=== PATIENT | female | born 1965 | race Caucasian/White ===

== ENCOUNTER 2018-10-13 08:38 | Emergency (ER) | payer OTHER, MEDICAID, SELFPAY ==
[2018-10-13 09:05] VITALS: BP 148/91; PULSE 84; RESP 20; TEMP 36.8; O2SAT 99; BMI 29.2
[2018-10-13 10:34] LABS: Bacteria Urine None Seen; RBC Urine None Seen (0-5/HPF)
--- NOTE | 2018-10-13 10:36 | DI.CT.S_ITS ---
PROCEDURE: CT LUMBAR SPINE WO CON INDICATIONS: severe pain right side fall 3 months ago TECHNIQUE: Noncontrast 3 mm thick sections acquired from the T12 level to the sacrum. Sagittal and coronal reformats were constructed. For radiation dose reduction, the following was used: automated exposure control. COMPARISON: [facility], CT, ABDOMEN/PELVIS WITH CONTRAST, 12/26/2016, 16:12. FINDINGS: Image quality: Diagnostic. Bones: There are 5 lumbar-type vertebral bodies. The vertebral body heights are well-maintained there is no evidence of an acute compression deformity is evident. No displaced fractures or dislocations are present. No suspicious osseous lesions are evident. There is straightening of the normal lumbar lordosis. No evidence of spondylolisthesis is evident. No definite pars defects are identified. The bone mineralization is within normal limits. Moderate to severe multilevel degenerative changes of the lumbar spine are present demonstrate multilevel disc height loss, disc osteophyte complexes, endplate sclerosis, and facet arthrosis. These findings are similar to the examination from 12/26/16. On the coronal images there is mild rightward curvature of the lower lumbar spine. Soft tissues: No retroperitoneal masses or hematomas. Visualized aorta is normal in caliber. Uterus is slightly prominent in size. However, the uterus is not adequately evaluated on this exam. There may be areas of mild distal colonic diverticulosis. No free fluid or loculated fluid collection seen within the imaged portions of the pelvis. IMPRESSION: 1. No acute fracture of the lumbar spine. 2. Moderate to severe multilevel degenerative changes of the lumbar spine are more prominent involving the lower lumbar levels. 3. Number straightening without spondylolisthesis. There is rightward curvature of the lower lumbar spine. Dictated by: Joe Royal M.D. on 10/13/2018 at 10:11 Approved by: Joe Royal M.D. on 10/13/2018 at 10:16
--- NOTE | 2018-10-13 10:41 | ED_ITS ---
HPI - Back Pain/Injury General Chief Complaint: Back Pain/Injury Stated Complaint: Lower back and hip pain Time Seen by Provider: 10/13/18 10:07 Source: patient Mode of arrival: wheelchair Limitations: no limitations History of Present Illness HPI Narrative: Patient is a 53-year-old female who presents with low back pain. She has sharp shooting pain down her right leg. She always has pain in morning however this morning he was significantly worse more than usual. She has no fever no urinary incontinence. She says that it it all started about 3 months ago when she slipped fell and twisted. She has been to physical therapy which she said made her pain even worse. She actually has not had any imaging done. She usually takes open in the morning she took 800 this morning and is still having severe pain. MD Complaint: back pain Onset (ago): month(s) (3) Duration: progressively worsening Location: lumbar spine Severity: severe Quality: sharp and stabbing Radiation: right leg Relieving factors: none Related Data Home Medications Medication Instructions Recorded Confirmed calcium carbonate [Tums E-X] 300 mg PO PRN PRN #0 12/26/16 carvedilol [Coreg] 6.25 mg PO QDAY #0 12/26/16 hydroxyzine HCl 25 mg PO QDAY #0 12/26/16 Previous Rx's Medication Instructions Recorded chlordiazepoxide HCl 25 mg PO Q6H #14 cap 12/28/16 hydrocodone-acetaminophen [Hastings] 1 tab PO Q6H PRN #10 tab 10/13/18 lidocaine 1 patch TOP DAILY PRN #30 each 10/13/18 prednisone 40 mg PO DAILY #10 tab 10/13/18 Allergies Allergy/AdvReac Type Severity Reaction Status Date / Time No Known Allergies Allergy Uncoded 09/06/17 12:36 Review of Systems Review of Systems ROS Unobtainable: All systems reviewed & are unremarkable except as noted in HPI and below Constitutional Denies chills, Denies fever(s), Denies lethargy and Denies weakness Eyes Denies change in vision, Denies eye discharge, Denies irritation and Denies loss of vision ENT Ears, Nose, Mouth, and Throat: Denies change in voice, Denies neck pain and Denies sore throat Cardiovascular Denies chest pain, Denies irregular heart rhythm, Denies lightheadedness, Denies palpitations, Denies dyspnea, Denies dyspnea on exertion and Denies orthopnea Respiratory Denies cough, Denies dyspnea, Denies dyspnea on exertion and Denies wheezing Gastrointestinal Gastrointestinal: Denies abdominal pain, Denies change in bowel habits, Denies diarrhea, Denies nausea and Denies vomiting Musculoskeletal Reports abnormal gait, Reports back pain, Denies neck pain and Reports tingling Integumentary/Breasts Denies pruritus, Denies erythema, Denies rash and Denies wounds Neurologic Reports abnormal gait, Denies loss of vision, Reports tingling and Denies weakness Endocrine Denies palpitations Allergic/Immunologic Denies wheezing [facility] Medical History (Updated 10/13/18 @ 11:30 by Krys Rocha DO) Paroxysmal atrial fibrillation (Acute) Social History (Updated 10/13/18 @ 10:41 by Krys Rocha DO) Smoking Status: Never smoker alcohol intake: never substance use type: does not use Social History (Updated 10/13/18 @ 10:41 by Krys Rocha DO) Smoking Status: Never smoker alcohol intake: never substance use type: does not use Exam Initial Vital Signs Initial Vital Signs: Vital Signs Temperature 98.2 F 10/13/18 09:05 Pulse Rate 84 10/13/18 09:05 Respiratory Rate 20 10/13/18 09:05 Blood Pressure 148/91 H 10/13/18 09:05 Pulse Oximetry 99 10/13/18 09:05 GENERAL: Patient appears in pain and in [no acute] distress. HEENT: Head atraumatic,EOMI, pupils reactive, CARDIOVASCULAR: Regular rate and rhythm without murmurs, rubs or gallops. RESPIRATORY: Breath sounds equal bilaterally, no wheezes rales or rhonchi. ABDOMEN: Soft, nontender. Normoactive bowel sounds all 4 quadrants. No guarding or rebound. BACK: No midline tenderness she has right sided or lumbar pain. Sensation intact in lower extremities no saddle anesthesia : No CVA tenderness EXTREMITIES: Normal range of motion, no clubbing or edema. Neurovascularly intact NEUROLOGICAL: Alert and oriented x4.Normal gait and speech. Cranial nerves II through XII grossly intact. SKIN: Warm, dry, no laceration, no petechiae, no rashes or lesions. Course Orders Ordered: ED Orders 10/13/18 10:06 Urine Microscopic Stat 10/13/18 10:36 CT lumbar spine wo con Stat Discontinued Medications Hydromorphone HCl (Dilaudid) 1 mg SUBCUT Q4H PRN PRN Reason: Pain, Severe (7-10) Last Admin: 10/13/18 11:02 Dose: 1 mg Vital Signs - 8 hr 10/13/18 11:06 Pulse Rate 71 Respiratory Rate 18 Blood Pressure [Left Arm] 140/98 H Pulse Oximetry 99 MDM - Back Pain/Injury Lab Data Attestation: I reviewed the patient's lab results. Lab Results 10/13/18 Range/Units 10:06 Urine RBC None seen (0-5/HPF) Urine WBC 0-1/hpf (0-5/HPF) Ur Squamous Epith Cells 1-5 /hpf (0-5/HPF) Urine Bacteria None seen (None) Urine Mucus 1+ H (Negative) Ur Culture Indicated? Cult not indicated Urine Dip Bedside Urine Glucose Negative Bedside Urine Bilirubin + 1 Bedside Urine Ketone +/- 5 Urine Specific [place] 1.030 Bedside Urine Occult Blood - Negative Bedside Urine pH 5.5 Bedside Urine Protein +/- 15 Bedside Urine Urobilinogen - Negative Bedside Urine Nitrite - Negative Bedside Urine Leukocytes - Negative Esterase Imaging Data CT Lumbar: Radiologist's impression: PROCEDURE: CT LUMBAR SPINE WO CON INDICATIONS: severe pain right side fall 3 months ago TECHNIQUE: Noncontrast 3 mm thick sections acquired from the T12 level to the sacrum. Sagittal and coronal reformats were constructed. For radiation dose reduction, the following was used: automated exposure control. COMPARISON: [facility], CT, ABDOMEN/PELVIS WITH CONTRAST, 12/26/2016, 16:12 . FINDINGS: Image quality: Diagnostic. Bones: There are 5 lumbar-type vertebral bodies. The vertebral body heights are well-maintained there is no evidence of an acute compression deformity is evident. No displaced fractures or dislocations are present. No suspicious osseous lesions are evident. There is straightening of the normal lumbar lordosis. No evidence of spondylolisthesis is evident. No definite pars defects are identified. The bone mineralization is within normal limits. Moderate to severe multilevel degenerative changes of the lumbar spine are present demonstrate multilevel disc height loss, disc osteophyte complexes, endplate sclerosis, and facet arthrosis. These findings are similar to the examination from 12/26/16. On the coronal images there is mild rightward curvature of the lower lumbar spine. Soft tissues: No retroperitoneal masses or hematomas. Visualized aorta is normal in caliber. Uterus is slightly prominent in size. However, the uterus is not adequately evaluated on this exam. There may be areas of mild distal colonic diverticulosis. No free fluid or loculated fluid collection seen within the imaged portions of the pelvis. IMPRESSION: 1. No acute fracture of the lumbar spine. 2. Moderate to severe multilevel degenerative changes of the lumbar spine are more prominent involving the lower lumbar levels. 3. Number straightening without spondylolisthesis. There is rightward curvature of the lower lumbar spine. Dictated by: Joe Royal M.D. on 10/13/2018 at 10:11 MDM Narrative Medical decision making narrative: Pain is overall better. We discussed how she might need an outpatient MRI and physical therapy. She is agreeable to this. She is given a small amount of pain medication and prednisone along with lidocaine patches. We discussed a [id number] TENS unit as well which may also help. Patient is ambulatory. Discharge Plan Departure Patient Disposition: Home Clinical Impression: Back pain Qualifiers: Back pain location: low back pain Chronicity: acute Back pain laterality: right Sciatica presence: with sciatica Sciatica laterality: sciatica of right side Qualified Code(s): M54.41 - Lumbago with sciatica, right side Discharge Date/Time: 10/13/18 11:51 Interventions: ED Discharge Assessment Last Done: 10/13/18 11:49 Instructions: DI for Back Pain With Sciatica Activity Restrictions/Additional Instructions: *You have been diagnosed with back pain with sciatic *What to do: I do recommend physical therapy. He may require an outpatient MRI. CT today showed some arthritis. *Continue to take medications as directed Lidocaine patch placed indirect spots of pain only leave on for 12 hours and remove. Prednisone 40 mg once a day for 5 days Hastings 1 tablet every 6 hours only if needed for pain *Follow up with your primary care provider in 2-3 days, Dr. Oglesby may be able to help you with your chronic pain *Return to ER if you should have leg weakness loss of urine fever or any new, worsening or concerning symptoms Prescriptions: New hydrocodone-acetaminophen [Hastings] 5-325 mg tablet 1 tab PO Q6H PRN (Reason: pain) Qty: 10 RF: 0 prednisone 20 mg tablet 40 mg PO DAILY Qty: 10 RF: 0 lidocaine 5 % adhesive patch,medicated 1 patch TOP DAILY PRN (Reason: pain (scale score 4-6)) Qty: 30 RF: 0 No Action carvedilol [Coreg] 6.25 MG tablet 6.25 mg PO QDAY Qty: 0 RF: 0 hydroxyzine HCl 25 MG tablet 25 mg PO QDAY Qty: 0 RF: 0 calcium carbonate [Tums E-X] 300 MG tablet,chewable 300 mg PO PRN PRNQty: 0 RF: 0 chlordiazepoxide HCl 25 MG capsule 25 mg PO Q6H Qty: 14 RF: 0 Referrals: Kendall Oglesby DO [Physician] - Cindy Meza MD [Primary Care Provider] - Stand Alone Forms: Work Release Note
[2018-10-13 10:47] LABS: Culture Indicated Urine Cult Not Indicated; Mucus Urine 1+ (Negative); Squamous Epithelial Cell Urine 1-5 /HPF (0-5/HPF); WBC Urine 0-1/HPF (0-5/HPF)
[2018-10-13] MEDS: HYDROMORPHONE 2 MG INJ 1 MG SUBCUT (11:02)
[2018-10-13 11:06] VITALS: BP 140/98; PULSE 71; RESP 18; O2SAT 99
== END 2018-10-13 11:51 | disposition home or self-care (01) ==
PROVIDERS: Emergency Provider Emergency Medicine; PCP Family Medicine
DX: M54.41 Lumbago with sciatica, right side (principal)
CPT/HCPCS: 72131; 81003; 81015; 96372; 99282; 99284; J1170

== ENCOUNTER 2018-12-14 13:26 | Observation (INO) | payer OTHER, MEDICAID, SELFPAY ==
[2018-12-14 13:32] VITALS: BP 189/106; PULSE 108; RESP 18; TEMP 35.7; O2SAT 97; BMI 25.7
[2018-12-14] MEDS: ONDANSETRON 4 MG ODT PO (13:44)
[2018-12-14 14:02] LABS: Add Manual Diff / Slide Review NO; Basophils Absolute Auto 100 /uL (0-100); Basophils Percent Auto 0.5 % (0-2); Eosinophils Absolute Auto 0 /uL (0-450); Eosinophils Percent Auto 0.3 % (2-4); Hematocrit 41.9 % (36-46); Hemoglobin 14.4 g/dL (12.0-16.0); Lymphocytes Absolute Auto 1500 /uL (1100-4500); Lymphocytes Percent Auto 10.4 % (25-40); Mean Corpuscular HGB Conc 34.3 % (30-36); Mean Corpuscular Hemoglobin 34.5 PG (26-34); Mean Corpuscular Volume 100.5 fL (80-100); Monocytes Absolute Auto 600 /uL (0-900); Neutrophils Absolute Auto 12600 /uL (1500-7000); Neutrophils Percent Auto 84.8 % (50-75); Platelet Count 260 X10^3/uL (150-400); Red Blood Cell Count 4.17 X10^6/uL (4.0-5.2); Red Cell Distribution Width 13.5 % (11.6-14.8); White Blood Cell Count 14.8 X10^3/uL (4.5-11.0)
[2018-12-14 14:11] LABS: INR 0.9 (0.9-1.3); Prothrombin Time 10.5 SECONDS (10.1-12.7)
[2018-12-14 14:13] LABS: PTT Partial Thromboplastin Tim 26 SECONDS (26.4-36.2)
[2018-12-14 14:15] LABS: Alanine Aminotransferase 39 IU/L (9-52); Albumin 5.1 g/dL (3.5-5.0); Albumin Globulin Ratio 1.5 (1.0-2.8); Alkaline Phosphatase 80 U/L (38-126); Aspartate Aminotransferase 47 IU/L (14-36); BUN Creatinine Ratio 18.3 (6-22); Bilirubin Total 1.2 mg/dL (0.2-1.3); Blood Urea Nitrogen 11 mg/dL (7-17); Calcium 11.4 mg/dL (8.4-10.2); Carbon Dioxide 29 mmol/L (22-32); Chloride 95 mmol/L (98-107); Estimated Glomerular Filt Rate > 60.0 mL/min (>60); Globulin 3.4 g/dL (1.7-4.1); Glucose 155 mg/dL (70-100); HEMOLYSIS < 15 (0-50); Lipase 44 U/L (23-300); Sodium 138 mmol/L (137-145); Total Protein 8.5 g/dL (6.3-8.2)
[2018-12-14] MEDS: diphenhydrAMINE 50 MG/ML VIAL 25 MG IV (14:30)
[2018-12-14] MEDS: METOCLOPRAMIDE 10 MG/2 ML INJ IV (14:30)
[2018-12-14] MEDS: SODIUM CHLORIDE 0.9% 1,000 ML 1000 ML IV ×2 (14:30→15:44)
[2018-12-14 14:33] LABS: Amylase 65 U/L (30-110)
[2018-12-14 14:51] LABS: Creatine Kinase 80 U/L (30-135)
[2018-12-14 15:05] LABS: Troponin I < 0.012 ng/mL (0.01-0.034)
--- NOTE | 2018-12-14 15:11 | DI.CT.S_ITS ---
PROCEDURE: CT ABDOMEN PELVIS W CON INDICATIONS: abd pain, vomiting TECHNIQUE: After the administration of oral and intravenous contrast, 5 mm thick sections acquired from the diaphragms to the symphysis. 5 mm thick coronal and sagittal reformats were performed. For radiation dose reduction, the following was used: automated exposure control, adjustment of mA and/or kV according to patient size. COMPARISON: [facility], CT, ABDOMEN/PELVIS WITH CONTRAST, 12/26/2016, 16:12. [facility], CT, CT ABD PELVIS W CON, 03/18/2015, 6:59. [facility], CT, KUB - CT (PNL), 11/08/2012, 11:38. FINDINGS: Image quality: Diagnostic. ABDOMEN: Lung bases: Lung bases are clear. Heart size is normal. Solid organs: The liver is diffusely hypodense when compared to the spleen. No definite liver lesions are evident. The patient has had a prior cholecystectomy. There is mild prominence of the common bile duct, which is within normal limits given the prior cholecystectomy. The spleen is unremarkable. The adrenals are within normal limits. The kidneys also are within normal limits. There is no hydronephrosis or definite renal calculi. The pancreas is within normal limits. Peritoneum and bowel: There is prominent thickening of the distal esophageal wall. An associated moderate-sized hiatal hernia is present. Otherwise, the stomach is grossly unremarkable. The small bowel loops are nondilated. However, there is wall thickening identified involving the distal ileum within the right lower quadrant (image 50, series 2). There is diffuse thickening of the wall of the colon, which is relatively decompressed. The appendix is well-visualized and normal in size and appearance. No free fluid, loculated fluid collection or free air is evident. Nodes and vessels: No retroperitoneal or mesenteric adenopathy. Aorta and inferior vena cava are normal in caliber. Bones: No acute fracture or suspicious osseous lesion is present. There are [id number] degenerative changes of the lower lumbar spine. PELVIS: Genitourinary: Bladder wall thickness is normal. Miscellaneous: No inguinal hernias or adenopathy. No free fluid or loculated fluid collection is appreciated. Bones: No suspicious bony lesions. No acute pelvic fractures are identified. Mild to moderate degenerative changes of the pelvic joints are present. IMPRESSION: 1. Diffuse thickening of the wall of the colon is suggestive of colitis, which may be infectious or inflammatory in nature and clinical correlation is recommended. (A similar appearance to a lesser degree is present involving the distal ileum.) 2. No bowel obstruction. 3. Thickening of the distal esophageal wall may represent chronic esophagitis. There is a small to moderate-sized hiatal hernia. 4. Hepatic steatosis. Dictated by: Joe Royal M.D. on 12/14/2018 at 15:07 Approved by: Joe Royal M.D. on 12/14/2018 at 15:12
[2018-12-14 15:15] LABS: Procalcitonin < 0.05 ng/mL (<0.5)
[2018-12-14] MEDS: LORazepam 2 MG/ML INJ 1 MG IV (15:28)
[2018-12-14 16:37] LABS: WBC Urine None Seen (0-5/HPF)
[2018-12-14 16:42] LABS: Pregnancy Test Urine Negative (Negative)
[2018-12-14] MEDS: ONDANSETRON 4 MG/2 ML INJ IV ×2 (16:43→21:38)
[2018-12-14 16:45] LABS: Urine Amphetamines Negative (Negative); Urine Barbiturates Negative (Negative); Urine Benzodiazepines Negative (Negative); Urine Cocaine Negative (Negative); Urine MDMA Negative (Negative); Urine Methadone Negative (Negative); Urine Methamphetamines Negative (Negative); Urine Morphine/Opi cutoff 2000 Negative (Negative); Urine Oxycodone Positive (Negative); Urine Phencyclidine Negative (Negative); Urine Tetrahydrocannabinol Positive (Negative); Urine Tricyclic Antidepressant Negative (Negative)
[2018-12-14 16:49] LABS: Bacteria Urine Few (2-10); Culture Indicated Urine Cult Not Indicated; RBC Urine 0-1/HPF (0-5/HPF)
[2018-12-14] MEDS: MORPHINE 2 MG/ML INJ IV (17:01)
[2018-12-14] MEDS: PANTOPRAZOLE 40 MG VIAL IV (17:01)
[2018-12-14] MEDS: methylPREDNISolone 125 MG/2 ML VIAL IV (17:02)
[2018-12-14] MEDS: PROMETHAZINE 25 MG SUPP PR (18:11)
[2018-12-14 18:21] VITALS: BP 158/78; PULSE 89; RESP 14; O2SAT 98
[2018-12-14 19:00] VITALS: BP 158/78; PULSE 88; RESP 14; O2SAT 98
--- NOTE | 2018-12-14 20:48 | ED.NAVMDI ---
HPI - Nausea/Vomiting/Diarrhea <CRYS Martines - Last Filed: 12/14/18 21:03> General Chief complaint: Nausea/Vomiting/Diarrhea Stated complaint: possible pancreatitis Time Seen by Provider: 12/14/18 14:09 Source: patient and family Mode of arrival: ambulatory Limitations: no limitations History of Present Illness HPI Narrative: The patient is a 53 year old female current everyday smoker presents with her boyfriend for chief complaint of nausea and vomiting since this morning. She states she has a history of pancreatitis and she feels like that at this point time. She is unable to stop vomiting. She states she has episodes of this every few months. She admits to using marijuana, but denies any connection between marijuana use and her nausea and vomiting. She denies any fevers, dysuria urgency or frequency chest pain or shortness of breath. She denies any cough or congestion. She states she has had a cholecystectomy. She also has a history of sciatica with sharp shooting pain down her right leg. She has had this ongoing for several months and takes some pain medicine for it. Related Data Home Medications Medication Instructions Recorded Confirmed calcium carbonate [Tums E-X] 2 tab PO PRN PRN #0 12/26/16 12/15/18 carvedilol [Coreg] 6.25 mg PO BID #0 12/26/16 12/14/18 hydroxyzine HCl 25 mg PO Q6H PRN #0 12/26/16 12/14/18 gabapentin 600 mg PO TID 12/14/18 12/14/18 ketorolac 10 mg PO QID PRN 12/14/18 12/14/18 methocarbamol 500 mg PO BEDTIME 12/14/18 12/14/18 oxycodone 5 mg PO DAILY PRN 12/14/18 12/14/18 ranitidine HCl 150 mg PO BID PRN 12/14/18 12/14/18 tizanidine 4 mg PO BID 12/14/18 12/14/18 Previous Rx's Medication Instructions Recorded hydrocodone-acetaminophen [[place]] 1 tab PO Q6H PRN #10 tab 10/13/18 Allergies Allergy/AdvReac Type Severity Reaction Status Date / Time No Known Allergies Allergy Uncoded 09/06/17 12:36 Review of Systems <CRYS Martines - Last Filed: 12/14/18 21:03> Review of Systems GENERAL: Denies chills, fatigue, malaise, fever, sweats. HEENT: Denies sinus pain, ear pain, sore throat, difficulty swallowing, dizziness. RESPIRATORY: Denies dyspnea, cough, wheezing, hemoptysis, sputum. CARDIOVASCULAR: Denies chest pain, palpitations, orthopnea, edema, GASTROINTESTINAL: See HPI : Denies dysuria, frequency, incontinence, hematuria, urinary retention. MUSCULOSKELETAL: denies weakness, joint pain, or bony pain SKIN: Denies rash, skin lesions, or other NEUROLOGIC: Denies weakness, headache, numbness, change in speech, confusion, seizures, incoordination. PSYCHIATRIC: No concerning psychosocial issues. 12 point review of systems is negative except for those stated above PFSH <CRYS Martines - Last Filed: 12/14/18 21:03> Medical History Degenerative joint disease (DJD) of lumbar spine (Acute) Low back pain (Acute) Sciatica associated with disorder of lumbar spine (Acute) Paroxysmal atrial fibrillation (Acute) Surgical History History of cholecystectomy (Acute) History of colonoscopy (Acute) History of esophagogastroduodenoscopy (EGD) (Acute) History of local excision of skin lesion (Acute) Social History household members: family Smoking Status: Current every day smoker alcohol intake: current substance use type: does not use Social History household members: family Smoking Status: Current every day smoker alcohol intake: current substance use type: does not use Exam <CRYS Martines - Last Filed: 12/14/18 21:03> Narrative Exam Narrative: GENERAL: This is a well-nourished, well-developed patient, vomiting and back HEAD: Atraumatic. Normocephalic. No temporal or scalp tenderness. EYES: Pupils equal round and reactive. Extraocular motions intact. No scleral icterus. No injection or drainage. ENT: Nose without bleeding, purulent drainage or septal hematoma. Throat without erythema, tonsillar hypertrophy or exudate. Uvula midline. Airway patent. NECK: Trachea midline. No JVD or lymphadenopathy. Supple, nontender, no meningeal signs. CARDIOVASCULAR: Regular rate and rhythm RESPIRATORY: Clear to auscultation. Breath sounds equal bilaterally. No wheezes, rales, or rhonchi. No cough. No increased respiratory effort. No accessory muscle use. GASTROINTESTINAL: Abdomen soft, diffusely tender to palpation, nondistended. No hepato-splenomegaly, or palpable masses. No guarding. Active bowel sounds all 4 quadrants EXTREMITIES: No clubbing, cyanosis, or edema. No joint tenderness, effusion, or edema noted. BACK: Nontender without deformity or crepitance. No flank tenderness. NEURO: AOx3. SKIN: No rash or erythema. Initial Vital Signs Initial Vital Signs: Vital Signs Temperature 96.3 F L 12/14/18 13:32 Pulse Rate 108 H 12/14/18 13:32 Respiratory Rate 18 12/14/18 13:32 Blood Pressure 189/106 H 12/14/18 13:32 Pulse Oximetry 97 12/14/18 13:32 <Kendall Ashton MD - Last Filed: 12/15/18 05:17> Initial Vital Signs Initial Vital Signs: Vital Signs Temperature 96.3 F L 12/14/18 13:32 Pulse Rate 108 H 12/14/18 13:32 Respiratory Rate 18 12/14/18 13:32 Blood Pressure 189/106 H 12/14/18 13:32 Pulse Oximetry 97 12/14/18 13:32 Course <CRYS Martines - Last Filed: 12/14/18 21:03> Orders Ordered: ED Orders 12/14/18 22:28 Consult to Dietitian, Adult Routine 12/14/18 23:02 GI Panel (Film Array) Urgent 12/14/18 23:03 Magnesium Routine Education, smoking cessation ONGOING 12/14/18 23:07 Consult to Discharge Planning Routine Consult to Physical Therapy Evaluate & Treat 12/15/18 Basic Metabolic Panel Routine Complete Blood Count AUTO DIFF Routine Magnesium Routine Carvedilol (Coreg) 6.25 mg PO BID JAZ Gabapentin (Neurontin) 600 mg PO TID JAZ Hydromorphone HCl (Dilaudid) 0.5 mg IV Q6H PRN PRN Reason: Pain, Moderate (4-6) Last Admin: 12/15/18 00:20 Dose: 0.5 mg Sodium Chloride (Normal Saline 0.9%) 1,000 mls @ 150 mls/hr IV CONT JAZ Last Admin: 12/15/18 00:04 Dose: 150 mls/hr Ondansetron HCl 8 mg/ Sodium (Chloride) 54 mls @ 216 mls/hr IV Q8HR PRN PRN Reason: Nausea And Vomiting Last Infusion: 12/15/18 04:31 Dose: 216 mls/hr Admin: 12/15/18 04:16 Dose: 216 mls/hr Lorazepam (Ativan) 0.5 mg IV Q4HR PRN PRN Reason: Nausea Last Admin: 12/15/18 03:31 Dose: 0.5 mg Methocarbamol (Robaxin) 500 mg PO BEDTIME JAZ Methylprednisolone (Solu-Medrol 125 Mg Vial) 20 mg IV Q8H JAZ Last Admin: 12/15/18 00:50 Dose: 20 mg Naloxone HCl (Narcan) 0.2 mg IV Q2MIN PRN PRN Reason: Opiate Reversal Pantoprazole Sodium (Protonix) 40 mg IV DAILY JAZ Promethazine HCl (Phenadoz) 12.5 mg [place] Q6HR PRN PRN Reason: Nausea And Vomiting Tizanidine HCl (Zanaflex) 4 mg PO BID FOR[facility], [facility] Discontinued Medications Diphenhydramine HCl (Benadryl) 25 mg IV NOW ONE Stop: 12/14/18 14:17 Last Admin: 12/14/18 14:30 Dose: 25 mg Hydromorphone HCl (Dilaudid) 0.5 mg IV Q6HR PRN PRN Reason: Pain, Moderate (4-6) Sodium Chloride (Normal Saline 0.9%) 1,000 mls @ 1,000 mls/hr IV BOLUS ONE Stop: 12/14/18 14:41 Last Infusion: 12/14/18 15:27 Dose: 0 mls/hr Admin: 12/14/18 14:30 Dose: 1,000 mls/hr Sodium Chloride (Normal Saline 0.9%) 1,000 mls @ 1,000 mls/hr IV BOLUS ONE Stop: 12/14/18 16:41 Last Infusion: 12/14/18 16:42 Dose: 0 mls/hr Admin: 12/14/18 15:44 Dose: 1,000 mls/hr Sodium Chloride (Normal Saline 0.9%) 1,000 mls @ 125 mls/hr IV CONT JAZ Last Admin: 12/14/18 21:14 Dose: 125 mls/hr Magnesium Sulfate (Magnesium Sulfate) 20 gm in 500 mls @ 50 mls/hr IV CONT JAZ Last Admin: 12/15/18 01:13 Dose: Not Given Magnesium Sulfate (Magnesium Sulfate) 2 gm in 50 mls @ 25 mls/hr IV NOW ONE Stop: 12/15/18 03:06 Last Infusion: 12/15/18 03:14 Dose: 25 mls/hr Admin: 12/15/18 01:14 Dose: 25 mls/hr Ketorolac Tromethamine (Toradol) 30 mg IV NOW ONE Stop: 12/14/18 21:36 Last Admin: 12/14/18 21:38 Dose: 30 mg Lorazepam (Ativan) 1 mg IV NOW ONE Stop: 12/14/18 14:53 Last Admin: 12/14/18 15:28 Dose: 1 mg Methylprednisolone (Solu-Medrol 125 Mg Vial) 125 mg IV NOW ONE Stop: 12/14/18 16:57 Last Admin: 12/14/18 17:02 Dose: 125 mg Methylprednisolone (Solu-Medrol 125 Mg Vial) 60 mg IV Q8H JAZ Metoclopramide HCl (Reglan) 10 mg IV NOW ONE Stop: 12/14/18 14:17 Last Admin: 12/14/18 14:30 Dose: 10 mg Morphine Sulfate (Morphine) 2 mg IV NOW ONE Stop: 12/14/18 16:57 Last Admin: 12/14/18 17:01 Dose: 2 mg Ondansetron HCl (Zofran Odt) 4 mg PO NOW ONE Stop: 12/14/18 13:43 Last Admin: 12/14/18 13:44 Dose: 4 mg Ondansetron HCl (Zofran) 4 mg IV NOW ONE Stop: 12/14/18 14:55 Last Admin: 12/14/18 16:43 Dose: 4 mg Ondansetron HCl (Zofran) 4 mg IV NOW ONE Stop: 12/14/18 21:36 Last Admin: 12/14/18 21:38 Dose: 4 mg Pantoprazole Sodium (Protonix) 40 mg IV NOW ONE Stop: 12/14/18 16:59 Last Admin: 12/14/18 17:01 Dose: 40 mg Promethazine HCl (Phenadoz) 25 mg [place] NOW ONE Stop: 12/14/18 16:48 Last Admin: 12/14/18 18:11 Dose: 25 mg Vital Signs - 8 hr 12/14/18 21:41 12/14/18 22:53 12/14/18 23:30 Temperature 98.4 F 99.5 F 99.3 F Pulse Rate 94 H 86 85 Respiratory Rate 16 18 16 Blood Pressure 186/106 H 162/99 H Blood Pressure [Left Arm] 161/77 H Pulse Oximetry 100 98 100 12/15/18 03:21 Temperature 98.0 F Pulse Rate 86 Respiratory Rate 16 Blood Pressure 165/98 H Blood Pressure [Left Arm] Pulse Oximetry 97 <Kendall Ashton MD - Last Filed: 12/15/18 05:17> Orders Ordered: ED Orders 12/14/18 22:28 Consult to Dietitian, Adult Routine 12/14/18 23:02 GI Panel (Film Array) Urgent 12/14/18 23:03 Magnesium Routine Education, smoking cessation ONGOING 12/14/18 23:07 Consult to Discharge Planning Routine Consult to Physical Therapy Evaluate & Treat 12/15/18 Basic Metabolic Panel Routine Complete Blood Count AUTO DIFF Routine Magnesium Routine Carvedilol (Coreg) 6.25 mg PO BID JAZ Gabapentin (Neurontin) 600 mg PO TID JAZ Hydromorphone HCl (Dilaudid) 0.5 mg IV Q6H PRN PRN Reason: Pain, Moderate (4-6) Last Admin: 12/15/18 00:20 Dose: 0.5 mg Sodium Chloride (Normal Saline 0.9%) 1,000 mls @ 150 mls/hr IV CONT JAZ Last Admin: 12/15/18 00:04 Dose: 150 mls/hr Ondansetron HCl 8 mg/ Sodium (Chloride) 54 mls @ 216 mls/hr IV Q8HR PRN PRN Reason: Nausea And Vomiting Last Infusion: 12/15/18 04:31 Dose: 216 mls/hr Admin: 12/15/18 04:16 Dose: 216 mls/hr Lorazepam (Ativan) 0.5 mg IV Q4HR PRN PRN Reason: Nausea Last Admin: 12/15/18 03:31 Dose: 0.5 mg Methocarbamol (Robaxin) 500 mg PO BEDTIME JAZ Methylprednisolone (Solu-Medrol 125 Mg Vial) 20 mg IV Q8H JAZ Last Admin: 12/15/18 00:50 Dose: 20 mg Naloxone HCl (Narcan) 0.2 mg IV Q2MIN PRN PRN Reason: Opiate Reversal Pantoprazole Sodium (Protonix) 40 mg IV DAILY JAZ Promethazine HCl (Phenadoz) 12.5 mg [place] Q6HR PRN PRN Reason: Nausea And Vomiting Tizanidine HCl (Zanaflex) 4 mg PO BID JAZ Discontinued Medications Diphenhydramine HCl (Benadryl) 25 mg IV NOW ONE Stop: 12/14/18 14:17 Last Admin: 12/14/18 14:30 Dose: 25 mg Hydromorphone HCl (Dilaudid) 0.5 mg IV Q6HR PRN PRN Reason: Pain, Moderate (4-6) Sodium Chloride (Normal Saline 0.9%) 1,000 mls @ 1,000 mls/hr IV BOLUS ONE Stop: 12/14/18 14:41 Last Infusion: 12/14/18 15:27 Dose: 0 mls/hr Admin: 12/14/18 14:30 Dose: 1,000 mls/hr Sodium Chloride (Normal Saline 0.9%) 1,000 mls @ 1,000 mls/hr IV BOLUS ONE Stop: 12/14/18 16:41 Last Infusion: 12/14/18 16:42 Dose: 0 mls/hr Admin: 12/14/18 15:44 Dose: 1,000 mls/hr Sodium Chloride (Normal Saline 0.9%) 1,000 mls @ 125 mls/hr IV CONT JAZ Last Admin: 12/14/18 21:14 Dose: 125 mls/hr Magnesium Sulfate (Magnesium Sulfate) 20 gm in 500 mls @ 50 mls/hr IV CONT JAZ Last Admin: 12/15/18 01:13 Dose: Not Given Magnesium Sulfate (Magnesium Sulfate) 2 gm in 50 mls @ 25 mls/hr IV NOW ONE Stop: 12/15/18 03:06 Last Infusion: 12/15/18 03:14 Dose: 25 mls/hr Admin: 12/15/18 01:14 Dose: 25 mls/hr Ketorolac Tromethamine (Toradol) 30 mg IV NOW ONE Stop: 12/14/18 21:36 Last Admin: 12/14/18 21:38 Dose: 30 mg Lorazepam (Ativan) 1 mg IV NOW ONE Stop: 12/14/18 14:53 Last Admin: 12/14/18 15:28 Dose: 1 mg Methylprednisolone (Solu-Medrol 125 Mg Vial) 125 mg IV NOW ONE Stop: 12/14/18 16:57 Last Admin: 12/14/18 17:02 Dose: 125 mg Methylprednisolone (Solu-Medrol 125 Mg Vial) 60 mg IV Q8H JAZ Metoclopramide HCl (Reglan) 10 mg IV NOW ONE Stop: 12/14/18 14:17 Last Admin: 12/14/18 14:30 Dose: 10 mg Morphine Sulfate (Morphine) 2 mg IV NOW ONE Stop: 12/14/18 16:57 Last Admin: 12/14/18 17:01 Dose: 2 mg Ondansetron HCl (Zofran Odt) 4 mg PO NOW ONE Stop: 12/14/18 13:43 Last Admin: 12/14/18 13:44 Dose: 4 mg Ondansetron HCl (Zofran) 4 mg IV NOW ONE Stop: 12/14/18 14:55 Last Admin: 12/14/18 16:43 Dose: 4 mg Ondansetron HCl (Zofran) 4 mg IV NOW ONE Stop: 12/14/18 21:36 Last Admin: 12/14/18 21:38 Dose: 4 mg Pantoprazole Sodium (Protonix) 40 mg IV NOW ONE Stop: 12/14/18 16:59 Last Admin: 12/14/18 17:01 Dose: 40 mg Promethazine HCl (Phenadoz) 25 mg [place] NOW ONE Stop: 12/14/18 16:48 Last Admin: 12/14/18 18:11 Dose: 25 mg Vital Signs - 8 hr 12/14/18 21:41 12/14/18 22:53 12/14/18 23:30 Temperature 98.4 F 99.5 F 99.3 F Pulse Rate 94 H 86 85 Respiratory Rate 16 18 16 Blood Pressure 186/106 H 162/99 H Blood Pressure [Left Arm] 161/77 H Pulse Oximetry 100 98 100 12/15/18 03:21 Temperature 98.0 F Pulse Rate 86 Respiratory Rate 16 Blood Pressure 165/98 H Blood Pressure [Left Arm] Pulse Oximetry 97 MDM - Nausea/Vomiting/Diarrhea <MIESHA Martines- - Last Filed: 12/14/18 21:03> Lab Data Result diagrams: 12/14/18 13:56 12/14/18 13:56 Lab Results 12/14/18 12/14/18 12/14/18 Range/Units 13:56 13:56 13:56 WBC 14.8 H (4.5-11.0) X10^3/uL RBC 4.17 (4.0-5.2) X10^6/uL Hgb 14.4 (12.0-16.0) g/dL Hct 41.9 (36-46) % MCV 100.5 H (80-100) fL MCH 34.5 H (26-34) PG MCHC 34.3 (30-36) % RDW 13.5 (11.6-14.8) % Plt Count 260 (150-400) X10^3/uL Neut % (Auto) 84.8 H (50-75) % Lymph % (Auto) 10.4 L (25-40) % [place] % (Auto) 4.0 (3-14) % Eos % (Auto) 0.3 L (2-4) % Baso % (Auto) 0.5 (0-2) % Neut # (Auto) 97720 H (9833-5325) /uL Lymph # (Auto) 1500 (5119-3306) /uL [place] # (Auto) 600 (0-900) /uL Eos # (Auto) 0 (0-450) /uL Baso # (Auto) 100 (0-100) /uL PT 10.5 (10.1-12.7) SECONDS INR 0.9 (0.9-1.3) APTT 26 L (26.4-36.2) SECONDS Sodium 138 (137-145) mmol/L Potassium 4.0 (3.4-5.1) mmol/L Chloride 95 L (98-107) mmol/L Carbon Dioxide 29 (22-32) mmol/L BUN 11 (7-17) mg/dL Creatinine 0.60 (0.52-1.04) mg/dL Estimated GFR > 60.0 (>60) mL/min BUN/Creatinine Ratio 18.3 (6-22) Glucose 155 H (70-100) mg/dL Calcium 11.4 H (8.4-10.2) mg/dL Magnesium (1.6-2.3) mg/dL Total Bilirubin 1.2 (0.2-1.3) mg/dL AST 47 H (14-36) IU/L ALT 39 (9-52) IU/L Alkaline Phosphatase 80 (38-126) U/L Total Creatine Kinase (30-135) U/L CK-MB (CK-2) CK-MB (CK-2) Rel Index Troponin I (0.01-0.034) ng/mL Total Protein 8.5 H (6.3-8.2) g/dL Albumin 5.1 H (3.5-5.0) g/dL Globulin 3.4 (1.7-4.1) g/dL Albumin/Globulin Ratio 1.5 (1.0-2.8) Amylase (30-110) U/L Lipase 44 (23-300) U/L Procalcitonin (<0.5) ng/mL Urine RBC (0-5/HPF) Urine WBC (0-5/HPF) Urine Bacteria (None) Ur Culture Indicated? Urine Test (Negative) Urine Opiates Screen (Negative) Ur Oxycodone Screen (Negative) Urine Methadone Screen (Negative) Ur Barbiturates Screen (Negative) U Tricyclic Antidepress (Negative) Ur Phencyclidine Scrn (Negative) Ur Amphetamines Screen (Negative) U Methamphetamines Scrn (Negative) Ur MDMA Scrn (Ecstasy) (Negative) U Benzodiazepines Scrn (Negative) Urine Cocaine Screen (Negative) U Marijuana (THC) Screen (Negative) 12/14/18 12/14/18 12/14/18 Range/Units 13:56 13:56 13:56 WBC (4.5-11.0) X10^3/uL RBC (4.0-5.2) X10^6/uL Hgb (12.0-16.0) g/dL Hct (36-46) % MCV (80-100) fL MCH (26-34) PG MCHC (30-36) % RDW (11.6-14.8) % Plt Count (150-400) X10^3/uL Neut % (Auto) (50-75) % Lymph % (Auto) (25-40) % [place] % (Auto) (3-14) % Eos % (Auto) (2-4) % Baso % (Auto) (0-2) % Neut # (Auto) (5155-5738) /uL Lymph # (Auto) (1471-2663) /uL [place] # (Auto) (0-900) /uL Eos # (Auto) (0-450) /uL Baso # (Auto) (0-100) /uL PT (10.1-12.7) SECONDS INR (0.9-1.3) APTT (26.4-36.2) SECONDS Sodium (137-145) mmol/L Potassium (3.4-5.1) mmol/L Chloride (98-107) mmol/L Carbon Dioxide (22-32) mmol/L BUN (7-17) mg/dL Creatinine (0.52-1.04) mg/dL Estimated GFR (>60) mL/min BUN/Creatinine Ratio (6-22) Glucose (70-100) mg/dL Calcium (8.4-10.2) mg/dL Magnesium (1.6-2.3) mg/dL Total Bilirubin (0.2-1.3) mg/dL AST (14-36) IU/L ALT (9-52) IU/L Alkaline Phosphatase (38-126) U/L Total Creatine Kinase 80 (30-135) U/L CK-MB (CK-2) TNP CK-MB (CK-2) Rel Index TNP Troponin I < 0.012 (0.01-0.034) ng/mL Total Protein (6.3-8.2) g/dL Albumin (3.5-5.0) g/dL Globulin (1.7-4.1) g/dL Albumin/Globulin Ratio (1.0-2.8) Amylase 65 (30-110) U/L Lipase (23-300) U/L Procalcitonin < 0.05 (<0.5) ng/mL Urine RBC (0-5/HPF) Urine WBC (0-5/HPF) Urine Bacteria (None) Ur Culture Indicated? Urine Test (Negative) Urine Opiates Screen (Negative) Ur Oxycodone Screen (Negative) Urine Methadone Screen (Negative) Ur Barbiturates Screen (Negative) U Tricyclic Antidepress (Negative) Ur Phencyclidine Scrn (Negative) Ur Amphetamines Screen (Negative) U Methamphetamines Scrn (Negative) Ur MDMA Scrn (Ecstasy) (Negative) U Benzodiazepines Scrn (Negative) Urine Cocaine Screen (Negative) U Marijuana (THC) Screen (Negative) 12/14/18 12/14/18 12/14/18 Range/Units 16:30 16:30 16:30 WBC (4.5-11.0) X10^3/uL RBC (4.0-5.2) X10^6/uL Hgb (12.0-16.0) g/dL Hct (36-46) % MCV (80-100) fL MCH (26-34) PG MCHC (30-36) % RDW (11.6-14.8) % Plt Count (150-400) X10^3/uL Neut % (Auto) (50-75) % Lymph % (Auto) (25-40) % [place] % (Auto) (3-14) % Eos % (Auto) (2-4) % Baso % (Auto) (0-2) % Neut # (Auto) (2670-4264) /uL Lymph # (Auto) (4012-1330) /uL [place] # (Auto) (0-900) /uL Eos # (Auto) (0-450) /uL Baso # (Auto) (0-100) /uL PT (10.1-12.7) SECONDS INR (0.9-1.3) APTT (26.4-36.2) SECONDS Sodium (137-145) mmol/L Potassium (3.4-5.1) mmol/L Chloride (98-107) mmol/L Carbon Dioxide (22-32) mmol/L BUN (7-17) mg/dL Creatinine (0.52-1.04) mg/dL Estimated GFR (>60) mL/min BUN/Creatinine Ratio (6-22) Glucose (70-100) mg/dL Calcium (8.4-10.2) mg/dL Magnesium (1.6-2.3) mg/dL Total Bilirubin (0.2-1.3) mg/dL AST (14-36) IU/L ALT (9-52) IU/L Alkaline Phosphatase (38-126) U/L Total Creatine Kinase (30-135) U/L CK-MB (CK-2) CK-MB (CK-2) Rel Index Troponin I (0.01-0.034) ng/mL Total Protein (6.3-8.2) g/dL Albumin (3.5-5.0) g/dL Globulin (1.7-4.1) g/dL Albumin/Globulin Ratio (1.0-2.8) Amylase (30-110) U/L Lipase (23-300) U/L Procalcitonin (<0.5) ng/mL Urine RBC 0-1/hpf (0-5/HPF) Urine WBC None seen (0-5/HPF) Urine Bacteria Few (2-10) H (None) Ur Culture Indicated? Cult not indicated Urine Test Negative (Negative) Urine Opiates Screen Negative (Negative) Ur Oxycodone Screen Positive H (Negative) Urine Methadone Screen Negative (Negative) Ur Barbiturates Screen Negative (Negative) U Tricyclic Antidepress Negative (Negative) Ur Phencyclidine Scrn Negative (Negative) Ur Amphetamines Screen Negative (Negative) U Methamphetamines Scrn Negative (Negative) Ur MDMA Scrn (Ecstasy) Negative (Negative) U Benzodiazepines Scrn Negative (Negative) Urine Cocaine Screen Negative (Negative) U Marijuana (THC) Screen Positive H (Negative) 12/14/18 Range/Units 23:03 WBC (4.5-11.0) X10^3/uL RBC (4.0-5.2) X10^6/uL Hgb (12.0-16.0) g/dL Hct (36-46) % MCV (80-100) fL MCH (26-34) PG MCHC (30-36) % RDW (11.6-14.8) % Plt Count (150-400) X10^3/uL Neut % (Auto) (50-75) % Lymph % (Auto) (25-40) % [place] % (Auto) (3-14) % Eos % (Auto) (2-4) % Baso % (Auto) (0-2) % Neut # (Auto) (4512-3548) /uL Lymph # (Auto) (4744-4426) /uL [place] # (Auto) (0-900) /uL Eos # (Auto) (0-450) /uL Baso # (Auto) (0-100) /uL PT (10.1-12.7) SECONDS INR (0.9-1.3) APTT (26.4-36.2) SECONDS Sodium (137-145) mmol/L Potassium (3.4-5.1) mmol/L Chloride (98-107) mmol/L Carbon Dioxide (22-32) mmol/L BUN (7-17) mg/dL Creatinine (0.52-1.04) mg/dL Estimated GFR (>60) mL/min BUN/Creatinine Ratio (6-22) Glucose (70-100) mg/dL Calcium (8.4-10.2) mg/dL Magnesium 1.1 L (1.6-2.3) mg/dL Total Bilirubin (0.2-1.3) mg/dL AST (14-36) IU/L ALT (9-52) IU/L Alkaline Phosphatase (38-126) U/L Total Creatine Kinase (30-135) U/L CK-MB (CK-2) CK-MB (CK-2) Rel Index Troponin I (0.01-0.034) ng/mL Total Protein (6.3-8.2) g/dL Albumin (3.5-5.0) g/dL Globulin (1.7-4.1) g/dL Albumin/Globulin Ratio (1.0-2.8) Amylase (30-110) U/L Lipase (23-300) U/L Procalcitonin (<0.5) ng/mL Urine RBC (0-5/HPF) Urine WBC (0-5/HPF) Urine Bacteria (None) Ur Culture Indicated? Urine Test (Negative) Urine Opiates Screen (Negative) Ur Oxycodone Screen (Negative) Urine Methadone Screen (Negative) Ur Barbiturates Screen (Negative) U Tricyclic Antidepress (Negative) Ur Phencyclidine Scrn (Negative) Ur Amphetamines Screen (Negative) U Methamphetamines Scrn (Negative) Ur MDMA Scrn (Ecstasy) (Negative) U Benzodiazepines Scrn (Negative) Urine Cocaine Screen (Negative) U Marijuana (THC) Screen (Negative) Urine Dip Bedside Urine Glucose Negative Bedside Urine Bilirubin - Negative Bedside Urine Ketone ++ 40 Urine Specific Bee 1.015 Bedside Urine Occult Blood +/- Bedside Urine pH 7.0 Bedside Urine Protein - Negative Bedside Urine Urobilinogen - Negative Bedside Urine Nitrite - Negative Bedside Urine Leukocytes - Negative Esterase Imaging Data CT scan - abdomen: Radiologist's impression: [address] [address] [address] Scan Report Signed Patient: Maxwell Sibley [facility]#: [id number] : 1965Acct:[id number] Age/Sex: 53 / FDate of Service: 12/14/18 Loc: ED Accession Number: [id number] Procedure: CT abdomen pelvis w con Ordering Provider: Monica Gaffney [facility] [employer]ER[facility]IST-BC PROCEDURE: CT ABDOMEN PELVIS W CON INDICATIONS: abd pain, vomiting TECHNIQUE: After the administration of oral and intravenous contrast, 5 mm thick sections acquired from the diaphragms to the symphysis. 5 mm thick coronal and sagittal reformats were performed. For radiation dose reduction, the following was used: automated exposure control, adjustment of mA and/or kV according to patient size. COMPARISON: [facility], CT, ABDOMEN/PELVIS WITH CONTRAST, 12/26/2016, 16:12. [facility], CT, CT ABD PELVIS W CON, 03/18/2015, 6:59. [facility], CT, KUB - CT (PNL), 11/08/2012, 11:38. FINDINGS: Image quality: Diagnostic. ABDOMEN: Lung bases: Lung bases are clear. Heart size is normal. Solid organs: The liver is diffusely hypodense when compared to the spleen. No definite liver lesions are evident. The patient has had a prior cholecystectomy. There is mild prominence of the common bile duct, which is within normal limits given the prior cholecystectomy. The spleen is unremarkable. The adrenals are within normal limits. The kidneys also are within normal limits. There is no hydronephrosis or definite renal calculi. The pancreas is within normal limits. Peritoneum and bowel: There is prominent thickening of the distal esophageal wall. An associated moderate-sized hiatal hernia is present. Otherwise, the stomach is grossly unremarkable. The small bowel loops are nondilated. However, there is wall thickening identified involving the distal ileum within the right lower quadrant (image 50, series 2). There is diffuse thickening of the wall of the colon, which is relatively decompressed. The appendix is well-visualized and normal in size and appearance. No free fluid, loculated fluid collection or free air is evident. Nodes and vessels: No retroperitoneal or mesenteric adenopathy. Aorta and inferior vena cava are normal in caliber. Bones: No acute fracture or suspicious osseous lesion is present. There are wrnuargd-er-lvhtki degenerative changes of the lower lumbar spine. PELVIS: Genitourinary: Bladder wall thickness is normal. Miscellaneous: No inguinal hernias or adenopathy. No free fluid or loculated fluid collection is appreciated. Bones: No suspicious bony lesions. No acute pelvic fractures are identified. Mild to moderate degenerative changes of the pelvic joints are present. IMPRESSION: 1. Diffuse thickening of the wall of the colon is suggestive of colitis, which may be infectious or inflammatory in nature and clinical correlation is recommended. (A similar appearance to a lesser degree is present involving the distal ileum.) 2. No bowel obstruction. 3. Thickening of the distal esophageal wall may represent chronic esophagitis. There is a small to moderate-sized hiatal hernia. 4. Hepatic steatosis. Dictated by: Joe Royal M.D. on 12/14/2018 at 15:07 Approved by: Joe Royal M.D. on 12/14/2018 at 15:12 ECG Data Attestation: I personally reviewed and interpreted this ECG as follows: Interpretation: sinus rhythm. Ventricular rate 81. No ST elevation or depression. No ectopy noted. Viewed by Dr. Blackwell at 14:54 MDM Narrative Medical decision making narrative: Id the patient is a 53-year-old female who presents with a chief complaint of nausea and vomiting. She does not have an elevated procalcitonin, has a slightly elevated white blood cell count. She has a negative troponin, normal EKG. She was given several medications throughout her stay in the emergency department to help treat her nausea, including IV fluid, Zofran, Benadryl, Ativan, Reglan and promethazine. I did have an abdominal CT completed, which shows colitis. I did give her some pain medication as well as steroids to see if that would help. It is reassuring that she is afebrile, has a negative lactate. Her slightly elevated WBC could be related to stress and vomiting. It is interesting that the patient states that she has cyclical episodes of this. It may be related to marijuana use. The patient stated several times that she would prefer to go home, but then later requested to stay, as her p.o. trial of water and ice chips made her vomit. She has already had a cholecystectomy, so I did not obtain a right upper quadrant ultrasound at this time. She also has diffuse tenderness throughout her abdomen. Urinalysis was obtained and a culture was not indicated. Patient tested negative for .Triston DORSEY kindly agreed to admit the patient for observation. Patient is in accordance with plan of care. <Kendall Ashton MD - Last Filed: 12/15/18 05:17> Lab Data Lab Results 12/14/18 12/14/18 12/14/18 Range/Units 13:56 13:56 13:56 WBC 14.8 H (4.5-11.0) X10^3/uL RBC 4.17 (4.0-5.2) X10^6/uL Hgb 14.4 (12.0-16.0) g/dL Hct 41.9 (36-46) % MCV 100.5 H (80-100) fL MCH 34.5 H (26-34) PG MCHC 34.3 (30-36) % RDW 13.5 (11.6-14.8) % Plt Count 260 (150-400) X10^3/uL Neut % (Auto) 84.8 H (50-75) % Lymph % (Auto) 10.4 L (25-40) % [place] % (Auto) 4.0 (3-14) % Eos % (Auto) 0.3 L (2-4) % Baso % (Auto) 0.5 (0-2) % Neut # (Auto) 75843 H (2876-6388) /uL Lymph # (Auto) 1500 (5392-9801) /uL [place] # (Auto) 600 (0-900) /uL Eos # (Auto) 0 (0-450) /uL Baso # (Auto) 100 (0-100) /uL PT 10.5 (10.1-12.7) SECONDS INR 0.9 (0.9-1.3) APTT 26 L (26.4-36.2) SECONDS Sodium 138 (137-145) mmol/L Potassium 4.0 (3.4-5.1) mmol/L Chloride 95 L (98-107) mmol/L Carbon Dioxide 29 (22-32) mmol/L BUN 11 (7-17) mg/dL Creatinine 0.60 (0.52-1.04) mg/dL Estimated GFR > 60.0 (>60) mL/min BUN/Creatinine Ratio 18.3 (6-22) Glucose 155 H (70-100) mg/dL Calcium 11.4 H (8.4-10.2) mg/dL Magnesium (1.6-2.3) mg/dL Total Bilirubin 1.2 (0.2-1.3) mg/dL AST 47 H (14-36) IU/L ALT 39 (9-52) IU/L Alkaline Phosphatase 80 (38-126) U/L Total Creatine Kinase (30-135) U/L CK-MB (CK-2) CK-MB (CK-2) Rel Index Troponin I (0.01-0.034) ng/mL Total Protein 8.5 H (6.3-8.2) g/dL Albumin 5.1 H (3.5-5.0) g/dL Globulin 3.4 (1.7-4.1) g/dL Albumin/Globulin Ratio 1.5 (1.0-2.8) Amylase (30-110) U/L Lipase 44 (23-300) U/L Procalcitonin (<0.5) ng/mL Urine RBC (0-5/HPF) Urine WBC (0-5/HPF) Urine Bacteria (None) Ur Culture Indicated? Urine Test (Negative) Urine Opiates Screen (Negative) Ur Oxycodone Screen (Negative) Urine Methadone Screen (Negative) Ur Barbiturates Screen (Negative) U Tricyclic Antidepress (Negative) Ur Phencyclidine Scrn (Negative) Ur Amphetamines Screen (Negative) U Methamphetamines Scrn (Negative) Ur MDMA Scrn (Ecstasy) (Negative) U Benzodiazepines Scrn (Negative) Urine Cocaine Screen (Negative) U Marijuana (THC) Screen (Negative) 12/14/18 12/14/18 12/14/18 Range/Units 13:56 13:56 13:56 WBC (4.5-11.0) X10^3/uL RBC (4.0-5.2) X10^6/uL Hgb (12.0-16.0) g/dL Hct (36-46) % MCV (80-100) fL MCH (26-34) PG MCHC (30-36) % RDW (11.6-14.8) % Plt Count (150-400) X10^3/uL Neut % (Auto) (50-75) % Lymph % (Auto) (25-40) % [place] % (Auto) (3-14) % Eos % (Auto) (2-4) % Baso % (Auto) (0-2) % Neut # (Auto) (5521-6202) /uL Lymph # (Auto) (2363-8026) /uL [place] # (Auto) (0-900) /uL Eos # (Auto) (0-450) /uL Baso # (Auto) (0-100) /uL PT (10.1-12.7) SECONDS INR (0.9-1.3) APTT (26.4-36.2) SECONDS Sodium (137-145) mmol/L Potassium (3.4-5.1) mmol/L Chloride (98-107) mmol/L Carbon Dioxide (22-32) mmol/L BUN (7-17) mg/dL Creatinine (0.52-1.04) mg/dL Estimated GFR (>60) mL/min BUN/Creatinine Ratio (6-22) Glucose (70-100) mg/dL Calcium (8.4-10.2) mg/dL Magnesium (1.6-2.3) mg/dL Total Bilirubin (0.2-1.3) mg/dL AST (14-36) IU/L ALT (9-52) IU/L Alkaline Phosphatase (38-126) U/L Total Creatine Kinase 80 (30-135) U/L CK-MB (CK-2) TNP CK-MB (CK-2) Rel Index TNP Troponin I < 0.012 (0.01-0.034) ng/mL Total Protein (6.3-8.2) g/dL Albumin (3.5-5.0) g/dL Globulin (1.7-4.1) g/dL Albumin/Globulin Ratio (1.0-2.8) Amylase 65 (30-110) U/L Lipase (23-300) U/L Procalcitonin < 0.05 (<0.5) ng/mL Urine RBC (0-5/HPF) Urine WBC (0-5/HPF) Urine Bacteria (None) Ur Culture Indicated? Urine Test (Negative) Urine Opiates Screen (Negative) Ur Oxycodone Screen (Negative) Urine Methadone Screen (Negative) Ur Barbiturates Screen (Negative) U Tricyclic Antidepress (Negative) Ur Phencyclidine Scrn (Negative) Ur Amphetamines Screen (Negative) U Methamphetamines Scrn (Negative) Ur MDMA Scrn (Ecstasy) (Negative) U Benzodiazepines Scrn (Negative) Urine Cocaine Screen (Negative) U Marijuana (THC) Screen (Negative) 12/14/18 12/14/18 12/14/18 Range/Units 16:30 16:30 16:30 WBC (4.5-11.0) X10^3/uL RBC (4.0-5.2) X10^6/uL Hgb (12.0-16.0) g/dL Hct (36-46) % MCV (80-100) fL MCH (26-34) PG MCHC (30-36) % RDW (11.6-14.8) % Plt Count (150-400) X10^3/uL Neut % (Auto) (50-75) % Lymph % (Auto) (25-40) % [place] % (Auto) (3-14) % Eos % (Auto) (2-4) % Baso % (Auto) (0-2) % Neut # (Auto) (0951-6945) /uL Lymph # (Auto) (5919-8594) /uL [place] # (Auto) (0-900) /uL Eos # (Auto) (0-450) /uL Baso # (Auto) (0-100) /uL PT (10.1-12.7) SECONDS INR (0.9-1.3) APTT (26.4-36.2) SECONDS Sodium (137-145) mmol/L Potassium (3.4-5.1) mmol/L Chloride (98-107) mmol/L Carbon Dioxide (22-32) mmol/L BUN (7-17) mg/dL Creatinine (0.52-1.04) mg/dL Estimated GFR (>60) mL/min BUN/Creatinine Ratio (6-22) Glucose (70-100) mg/dL Calcium (8.4-10.2) mg/dL Magnesium (1.6-2.3) mg/dL Total Bilirubin (0.2-1.3) mg/dL AST (14-36) IU/L ALT (9-52) IU/L Alkaline Phosphatase (38-126) U/L Total Creatine Kinase (30-135) U/L CK-MB (CK-2) CK-MB (CK-2) Rel Index Troponin I (0.01-0.034) ng/mL Total Protein (6.3-8.2) g/dL Albumin (3.5-5.0) g/dL Globulin (1.7-4.1) g/dL Albumin/Globulin Ratio (1.0-2.8) Amylase (30-110) U/L Lipase (23-300) U/L Procalcitonin (<0.5) ng/mL Urine RBC 0-1/hpf (0-5/HPF) Urine WBC None seen (0-5/HPF) Urine Bacteria Few (2-10) H (None) Ur Culture Indicated? Cult not indicated Urine Test Negative (Negative) Urine Opiates Screen Negative (Negative) Ur Oxycodone Screen Positive H (Negative) Urine Methadone Screen Negative (Negative) Ur Barbiturates Screen Negative (Negative) U Tricyclic Antidepress Negative (Negative) Ur Phencyclidine Scrn Negative (Negative) Ur Amphetamines Screen Negative (Negative) U Methamphetamines Scrn Negative (Negative) Ur MDMA Scrn (Ecstasy) Negative (Negative) U Benzodiazepines Scrn Negative (Negative) Urine Cocaine Screen Negative (Negative) U Marijuana (THC) Screen Positive H (Negative) 12/14/18 Range/Units 23:03 WBC (4.5-11.0) X10^3/uL RBC (4.0-5.2) X10^6/uL Hgb (12.0-16.0) g/dL Hct (36-46) % MCV (80-100) fL MCH (26-34) PG MCHC (30-36) % RDW (11.6-14.8) % Plt Count (150-400) X10^3/uL Neut % (Auto) (50-75) % Lymph % (Auto) (25-40) % [place] % (Auto) (3-14) % Eos % (Auto) (2-4) % Baso % (Auto) (0-2) % Neut # (Auto) (2395-2308) /uL Lymph # (Auto) (7683-0300) /uL [place] # (Auto) (0-900) /uL Eos # (Auto) (0-450) /uL Baso # (Auto) (0-100) /uL PT (10.1-12.7) SECONDS INR (0.9-1.3) APTT (26.4-36.2) SECONDS Sodium (137-145) mmol/L Potassium (3.4-5.1) mmol/L Chloride (98-107) mmol/L Carbon Dioxide (22-32) mmol/L BUN (7-17) mg/dL Creatinine (0.52-1.04) mg/dL Estimated GFR (>60) mL/min BUN/Creatinine Ratio (6-22) Glucose (70-100) mg/dL Calcium (8.4-10.2) mg/dL Magnesium 1.1 L (1.6-2.3) mg/dL Total Bilirubin (0.2-1.3) mg/dL AST (14-36) IU/L ALT (9-52) IU/L Alkaline Phosphatase (38-126) U/L Total Creatine Kinase (30-135) U/L CK-MB (CK-2) CK-MB (CK-2) Rel Index Troponin I (0.01-0.034) ng/mL Total Protein (6.3-8.2) g/dL Albumin (3.5-5.0) g/dL Globulin (1.7-4.1) g/dL Albumin/Globulin Ratio (1.0-2.8) Amylase (30-110) U/L Lipase (23-300) U/L Procalcitonin (<0.5) ng/mL Urine RBC (0-5/HPF) Urine WBC (0-5/HPF) Urine Bacteria (None) Ur Culture Indicated? Urine Test (Negative) Urine Opiates Screen (Negative) Ur Oxycodone Screen (Negative) Urine Methadone Screen (Negative) Ur Barbiturates Screen (Negative) U Tricyclic Antidepress (Negative) Ur Phencyclidine Scrn (Negative) Ur Amphetamines Screen (Negative) U Methamphetamines Scrn (Negative) Ur MDMA Scrn (Ecstasy) (Negative) U Benzodiazepines Scrn (Negative) Urine Cocaine Screen (Negative) U Marijuana (THC) Screen (Negative) Urine Dip Bedside Urine Glucose Negative Bedside Urine Bilirubin - Negative Bedside Urine Ketone ++ 40 Urine Specific Bee 1.015 Bedside Urine Occult Blood +/- Bedside Urine pH 7.0 Bedside Urine Protein - Negative Bedside Urine Urobilinogen - Negative Bedside Urine Nitrite - Negative Bedside Urine Leukocytes - Negative Esterase Discharge Plan Departure Patient Disposition: Admitted as Observation Clinical Impression: Intractable nausea and vomiting Qualifiers: Vomiting type: unspecified Qualified Code(s): R11.2 - Nausea with vomiting, unspecified Discharge Date/Time: 12/14/18 21:57 Interventions: ED Discharge Assessment Last Done: 12/14/18 21:56 Admit Date/Time: 12/14/18 21:06 Admit Provider: Walter Goldstein <Kendall Ashton MD - Last Filed: 12/15/18 05:17> Cosign ED Attending Cosignature Attestation: I was present in the ER at the time of this patient's care. I was available for consultation or to evaluate the patient directly. I agree with the evaluation, assessment and treatment plan.
--- NOTE | 2018-12-14 20:55 | ED_ITS ---
HPI - Nausea/Vomiting/Diarrhea <CRYS Martines - Last Filed: 12/14/18 21:03> General Chief complaint: Nausea/Vomiting/Diarrhea Stated complaint: possible pancreatitis Time Seen by Provider: 12/14/18 14:09 Source: patient and family Mode of arrival: ambulatory Limitations: no limitations History of Present Illness HPI Narrative: The patient is a 53 year old female current everyday smoker presents with her boyfriend for chief complaint of nausea and vomiting since this morning. She states she has a history of pancreatitis and she feels like that at this point time. She is unable to stop vomiting. She states she has episodes of this every few months. She admits to using marijuana, but denies any connection between marijuana use and her nausea and vomiting. She denies any fevers, dysuria urgency or frequency chest pain or shortness of breath. She denies any cough or congestion. She states she has had a cholecystectomy. She also has a history of sciatica with sharp shooting pain down her right leg. She has had this ongoing for several months and takes some pain medicine for it. Related Data Home Medications Medication Instructions Recorded Confirmed calcium carbonate [Tums E-X] 2 tab PO PRN PRN #0 12/26/16 12/15/18 carvedilol [Coreg] 6.25 mg PO BID #0 12/26/16 12/14/18 hydroxyzine HCl 25 mg PO Q6H PRN #0 12/26/16 12/14/18 gabapentin 600 mg PO TID 12/14/18 12/14/18 ketorolac 10 mg PO QID PRN 12/14/18 12/14/18 methocarbamol 500 mg PO BEDTIME 12/14/18 12/14/18 oxycodone 5 mg PO DAILY PRN 12/14/18 12/14/18 ranitidine HCl 150 mg PO BID PRN 12/14/18 12/14/18 tizanidine 4 mg PO BID 12/14/18 12/14/18 Previous Rx's Medication Instructions Recorded hydrocodone-acetaminophen [[place]] 1 tab PO Q6H PRN #10 tab 10/13/18 Allergies Allergy/AdvReac Type Severity Reaction Status Date / Time No Known Allergies Allergy Uncoded 09/06/17 12:36 Review of Systems <CRYS Martines - Last Filed: 12/14/18 21:03> Review of Systems GENERAL: Denies chills, fatigue, malaise, fever, sweats. HEENT: Denies sinus pain, ear pain, sore throat, difficulty swallowing, dizziness. RESPIRATORY: Denies dyspnea, cough, wheezing, hemoptysis, sputum. CARDIOVASCULAR: Denies chest pain, palpitations, orthopnea, edema, GASTROINTESTINAL: See HPI : Denies dysuria, frequency, incontinence, hematuria, urinary retention. MUSCULOSKELETAL: denies weakness, joint pain, or bony pain SKIN: Denies rash, skin lesions, or other NEUROLOGIC: Denies weakness, headache, numbness, change in speech, confusion, seizures, incoordination. PSYCHIATRIC: No concerning psychosocial issues. 12 point review of systems is negative except for those stated above PFSH <CRYS Martines - Last Filed: 12/14/18 21:03> Medical History Degenerative joint disease (DJD) of lumbar spine (Acute) Low back pain (Acute) Sciatica associated with disorder of lumbar spine (Acute) Paroxysmal atrial fibrillation (Acute) Surgical History History of cholecystectomy (Acute) History of colonoscopy (Acute) History of esophagogastroduodenoscopy (EGD) (Acute) History of local excision of skin lesion (Acute) Social History household members: family Smoking Status: Current every day smoker alcohol intake: current substance use type: does not use Social History household members: family Smoking Status: Current every day smoker alcohol intake: current substance use type: does not use Exam <CRYS Martines - Last Filed: 12/14/18 21:03> Narrative Exam Narrative: GENERAL: This is a well-nourished, well-developed patient, vo miting and back HEAD: Atraumatic. Normocephalic. No temporal or scalp tenderness. EYES: Pupils equal round and reactive. Extraocular motions intact. No scleral icterus. No injection or drainage. ENT: Nose without bleeding, purulent drainage or septal hematoma. Throat without erythema, tonsillar hypertrophy or exudate. Uvula midline. Airway patent. NECK: Trachea midline. No JVD or lymphadenopathy. Supple, nontender, no meningeal signs. CARDIOVASCULAR: Regular rate and rhythm RESPIRATORY: Clear to auscultation. Breath sounds equal bilaterally. No wheezes, rales, or rhonchi. No cough. No increased respiratory effort. No accessory muscle use. GASTROINTESTINAL: Abdomen soft, diffusely tender to palpation, nondistended. No hepato-splenomegaly, or palpable masses. No guarding. Active bowel sounds all 4 quadrants EXTREMITIES: No clubbing, cyanosis, or edema. No joint tenderness, effusion, or edema noted. BACK: Nontender without deformity or crepitance. No flank tenderness. NEURO: AOx3. SKIN: No rash or erythema. Initial Vital Signs Initial Vital Signs: Vital Signs Temperature 96.3 F L 12/14/18 13:32 Pulse Rate 108 H 12/14/18 13:32 Respiratory Rate 18 12/14/18 13:32 Blood Pressure 189/106 H 12/14/18 13:32 Pulse Oximetry 97 12/14/18 13:32 <Kendall Ashton MD - Last Filed: 12/15/18 05:17> Initial Vital Signs Initial Vital Signs: Vital Signs Temperature 96.3 F L 12/14/18 13:32 Pulse Rate 108 H 12/14/18 13:32 Respiratory Rate 18 12/14/18 13:32 Blood Pressure 189/106 H 12/14/18 13:32 Pulse Oximetry 97 12/14/18 13:32 Course <CRYS Martines - Last Filed: 12/14/18 21:03> Orders Ordered: ED Orders 12/14/18 22:28 Consult to Dietitian, Adult Routine 12/14/18 23:02 GI Panel (Film Array) Urgent 12/14/18 23:03 Magnesium Routine Education, smoking cessation ONGOING 12/14/18 23:07 Consult to Discharge Planning Routine Consult to Physical Therapy Evaluate & Treat 12/15/18 Basic Metabolic Panel Routine Complete Blood Count AUTO DIFF Routine Magnesium Routine Carvedilol (Coreg) 6.25 mg PO BID JAZ Gabapentin (Neurontin) 600 mg PO TID JAZ Hydromorphone HCl (Dilaudid) 0.5 mg IV Q6H PRN PRN Reason: Pain, Moderate (4-6) Last Admin: 12/15/18 00:20 Dose: 0.5 mg Sodium Chloride (Normal Saline 0.9%) 1,000 mls @ 150 mls/hr IV CONT JAZ Last Admin: 12/15/18 00:04 Dose: 150 mls/hr Ondansetron HCl 8 mg/ Sodium (Chloride) 54 mls @ 216 mls/hr IV Q8HR PRN PRN Reason: Nausea And Vomiting Last Infusion: 12/15/18 04:31 Dose: 216 mls/hr Admin: 12/15/18 04:16 Dose: 216 mls/hr Lorazepam (Ativan) 0.5 mg IV Q4HR PRN PRN Reason: Nausea Last Admin: 12/15/18 03:31 Dose: 0.5 mg Methocarbamol (Robaxin) 500 mg PO BEDTIME JAZ Methylprednisolone (Solu-Medrol 125 Mg Vial) 20 mg IV Q8H JAZ Last Admin: 12/15/18 00:50 Dose: 20 mg Naloxone HCl (Narcan) 0.2 mg IV Q2MIN PRN PRN Reason: Opiate Reversal Pantoprazole Sodium (Protonix) 40 mg IV DAILY JAZ Promethazine HCl (Phenadoz) 12.5 mg [place] Q6HR PRN PRN Reason: Nausea And Vomiting Tizanidine HCl (Zanaflex) 4 mg PO BID [facility] Discontinued Medications Diphenhydramine HCl (Benadryl) 25 mg IV NOW ONE Stop: 12/14/18 14:17 Last Admin: 12/14/18 14:30 Dose: 25 mg Hydromorphone HCl (Dilaudid) 0.5 mg IV Q6HR PRN PRN Reason: Pain, Moderate (4-6) Sodium Chloride (Normal Saline 0.9%) 1,000 mls @ 1,000 mls/hr IV BOLUS ONE Stop: 12/14/18 14:41 Last Infusion: 12/14/18 15:27 Dose: 0 mls/hr Admin: 12/14/18 14:30 Dose: 1,000 mls/hr Sodium Chloride (Normal Saline 0.9%) 1,000 mls @ 1,000 mls/hr IV BOLUS ONE Stop: 12/14/18 16:41 Last Infusion: 12/14/18 16:42 Dose: 0 mls/hr Admin: 12/14/18 15:44 Dose: 1,000 mls/hr Sodium Chloride (Normal Saline 0.9%) 1,000 mls @ 125 mls/hr IV CONT JAZ Last Admin: 12/14/18 21:14 Dose: 125 mls/hr Magnesium Sulfate (Magnesium Sulfate) 20 gm in 500 mls @ 50 mls/hr IV CONT JAZ Last Admin: 12/15/18 01:13 Dose: Not Given Magnesium Sulfate (Magnesium Sulfate) 2 gm in 50 mls @ 25 mls/hr IV NOW ONE Stop: 12/15/18 03:06 Last Infusion: 12/15/18 03:14 Dose: 25 mls/hr Admin: 12/15/18 01:14 Dose: 25 mls/hr Ketorolac Tromethamine (Toradol) 30 mg IV NOW ONE Stop: 12/14/18 21:36 Last Admin: 12/14/18 21:38 Dose: 30 mg Lorazepam (Ativan) 1 mg IV NOW ONE Stop: 12/14/18 14:53 Last Admin: 12/14/18 15:28 Dose: 1 mg Methylprednisolone (Solu-Medrol 125 Mg Vial) 125 mg IV NOW ONE Stop: 12/14/18 16:57 Last Admin: 12/14/18 17:02 Dose: 125 mg Methylprednisolone (Solu-Medrol 125 Mg Vial) 60 mg IV Q8H JAZ Metoclopramide HCl (Reglan) 10 mg IV NOW ONE Stop: 12/14/18 14:17 Last Admin: 12/14/18 14:30 Dose: 10 mg Morphine Sulfate (Morphine) 2 mg IV NOW ONE Stop: 12/14/18 16:57 Last Admin: 12/14/18 17:01 Dose: 2 mg Ondansetron HCl (Zofran Odt) 4 mg PO NOW ONE Stop: 12/14/18 13:43 Last Admin: 12/14/18 13:44 Dose: 4 mg Ondansetron HCl (Zofran) 4 mg IV NOW ONE Stop: 12/14/18 14:55 Last Admin: 12/14/18 16:43 Dose: 4 mg Ondansetron HCl (Zofran) 4 mg IV NOW ONE Stop: 12/14/18 21:36 Last Admin: 12/14/18 21:38 Dose: 4 mg Pantoprazole Sodium (Protonix) 40 mg IV NOW ONE Stop: 12/14/18 16:59 Last Admin: 12/14/18 17:01 Dose: 40 mg Promethazine HCl (Phenadoz) 25 mg [place] NOW ONE Stop: 12/14/18 16:48 Last Admin: 12/14/18 18:11 Dose: 25 mg Vital Signs - 8 hr 12/14/18 21:41 12/14/18 22:53 12/14/18 23:30 Temperature 98.4 F 99.5 F 99.3 F Pulse Rate 94 H 86 85 Respiratory Rate 16 18 16 Blood Pressure 186/106 H 162/99 H Blood Pressure [Left Arm] 161/77 H Pulse Oximetry 100 98 100 12/15/18 03:21 Temperature 98.0 F Pulse Rate 86 Respiratory Rate 16 Blood Pressure 165/98 H Blood Pressure [Left Arm] Pulse Oximetry 97 <Kendall Ashton MD - Last Filed: 12/15/18 05:17> Orders Ordered: ED Orders 12/14/18 22:28 Consult to Dietitian, Adult Routine 12/14/18 23:02 GI Panel (Film Array) Urgent 12/14/18 23:03 Magnesium Routine Education, smoking cessation ONGOING 12/14/18 23:07 Consult to Discharge Planning Routine Consult to Physical Therapy Evaluate & Treat 12/15/18 Basic Metabolic Panel Routine Complete Blood Count AUTO DIFF Routine Magnesium Routine Carvedilol (Coreg) 6.25 mg PO BID JAZ Gabapentin (Neurontin) 600 mg PO TID JAZ Hydromorphone HCl (Dilaudid) 0.5 mg IV Q6H PRN PRN Reason: Pain, Moderate (4-6) Last Admin: 12/15/18 00:20 Dose: 0.5 mg Sodium Chloride (Normal Saline 0.9%) 1,000 mls @ 150 mls/hr IV CONT JAZ Last Admin: 12/15/18 00:04 Dose: 150 mls/hr Ondansetron HCl 8 mg/ Sodium (Chloride) 54 mls @ 216 mls/hr IV Q8HR PRN PRN Reason: Nausea And Vomiting Last Infusion: 12/15/18 04:31 Dose: 216 mls/hr Admin: 12/15/18 04:16 Dose: 216 mls/hr Lorazepam (Ativan) 0.5 mg IV Q4HR PRN PRN Reason: Nausea Last Admin: 12/15/18 03:31 Dose: 0.5 mg Methocarbamol (Robaxin) 500 mg PO BEDTIME JAZ Methylprednisolone (Solu-Medrol 125 Mg Vial) 20 mg IV Q8H JAZ Last Admin: 12/15/18 00:50 Dose: 20 mg Naloxone HCl (Narcan) 0.2 mg IV Q2MIN PRN PRN Reason: Opiate Reversal Pantoprazole Sodium (Protonix) 40 mg IV DAILY [facility] Promethazine HCl (Phenadoz) 12.5 mg [place] Q6HR PRN PRN Reason: Nausea And Vomiting Tizanidine HCl (Zanaflex) 4 mg PO BID JAZ Discontinued Medications Diphenhydramine HCl (Benadryl) 25 mg IV NOW ONE Stop: 12/14/18 14:17 Last Admin: 12/14/18 14:30 Dose: 25 mg Hydromorphone HCl (Dilaudid) 0.5 mg IV Q6HR PRN PRN Reason: Pain, Moderate (4-6) Sodium Chloride (Normal Saline 0.9%) 1,000 mls @ 1,000 mls/hr IV BOLUS ONE Stop: 12/14/18 14:41 Last Infusion: 12/14/18 15:27 Dose: 0 mls/hr Admin: 12/14/18 14:30 Dose: 1,000 mls/hr Sodium Chloride (Normal Saline 0.9%) 1,000 mls @ 1,000 mls/hr IV BOLUS ONE Stop: 12/14/18 16:41 Last Infusion: 12/14/18 16:42 Dose: 0 mls/hr Admin: 12/14/18 15:44 Dose: 1,000 mls/hr Sodium Chloride (Normal Saline 0.9%) 1,000 mls @ 125 mls/hr IV CONT JAZ Last Admin: 12/14/18 21:14 Dose: 125 mls/hr Magnesium Sulfate (Magnesium Sulfate) 20 gm in 500 mls @ 50 mls/hr IV CONT JAZ Last Admin: 12/15/18 01:13 Dose: Not Given Magnesium Sulfate (Magnesium Sulfate) 2 gm in 50 mls @ 25 mls/hr IV NOW ONE Stop: 12/15/18 03:06 Last Infusion: 12/15/18 03:14 Dose: 25 mls/hr Admin: 12/15/18 01:14 Dose: 25 mls/hr Ketorolac Tromethamine (Toradol) 30 mg IV NOW ONE Stop: 12/14/18 21:36 Last Admin: 12/14/18 21:38 Dose: 30 mg Lorazepam (Ativan) 1 mg IV NOW ONE Stop: 12/14/18 14:53 Last Admin: 12/14/18 15:28 Dose: 1 mg Methylprednisolone (Solu-Medrol 125 Mg Vial) 125 mg IV NOW ONE Stop: 12/14/18 16:57 Last Admin: 12/14/18 17:02 Dose: 125 mg Methylprednisolone (Solu-Medrol 125 Mg Vial) 60 mg IV Q8H JAZ Metoclopramide HCl (Reglan) 10 mg IV NOW ONE Stop: 12/14/18 14:17 Last Admin: 12/14/18 14:30 Dose: 10 mg Morphine Sulfate (Morphine) 2 mg IV NOW ONE Stop: 12/14/18 16:57 Last Admin: 12/14/18 17:01 Dose: 2 mg Ondansetron HCl (Zofran Odt) 4 mg PO NOW ONE Stop: 12/14/18 13:43 Last Admin: 12/14/18 13:44 Dose: 4 mg Ondansetron HCl (Zofran) 4 mg IV NOW ONE Stop: 12/14/18 14:55 Last Admin: 12/14/18 16:43 Dose: 4 mg Ondansetron HCl (Zofran) 4 mg IV NOW ONE Stop: 12/14/18 21:36 Last Admin: 12/14/18 21:38 Dose: 4 mg Pantoprazole Sodium (Protonix) 40 mg IV NOW ONE Stop: 12/14/18 16:59 Last Admin: 12/14/18 17:01 Dose: 40 mg Promethazine HCl (Phenadoz) 25 mg [place] NOW ONE Stop: 12/14/18 16:48 Last Admin: 12/14/18 18:11 Dose: 25 mg Vital Signs - 8 hr 12/14/18 21:41 12/14/18 22:53 12/14/18 23:30 Temperature 98.4 F 99.5 F 99.3 F Pulse Rate 94 H 86 85 Respiratory Rate 16 18 16 Blood Pressure 186/106 H 162/99 H Blood Pressure [Left Arm] 161/77 H Pulse Oximetry 100 98 100 12/15/18 03:21 Temperature 98.0 F Pulse Rate 86 Respiratory Rate 16 Blood Pressure 165/98 H Blood Pressure [Left Arm] Pulse Oximetry 97 MDM - Nausea/Vomiting/Diarrhea <MIESHA Martines- - Last Filed: 12/14/18 21:03> Lab Data Result diagrams: 12/14/18 13:56 12/14/18 13:56 Lab Results 12/14/18 12/14/18 12/14/18 Range/Units 13:56 13:56 13:56 WBC 14.8 H (4.5-11.0) X10^3/uL RBC 4.17 (4.0-5.2) X10^6/uL Hgb 14.4 (12.0-16.0) g/dL Hct 41.9 (36-46) % MCV 100.5 H (80-100) fL MCH 34.5 H (26-34) PG MCHC 34.3 (30-36) % RDW 13.5 (11.6-14.8) % Plt Count 260 (150-400) X10^3/uL Neut % (Auto) 84.8 H (50-75) % Lymph % (Auto) 10.4 L (25-40) % Nuckolls % (Auto) 4.0 (3-14) % Eos % (Auto) 0.3 L (2-4) % Baso % (Auto) 0.5 (0-2) % Neut # (Auto) 03122 H (8136-6803) /uL Lymph # (Auto) 1500 (1142-2580) /uL [place] # (Auto) 600 (0-900) /uL Eos # (Auto) 0 (0-450) /uL Baso # (Auto) 100 (0-100) /uL PT 10.5 (10.1-12.7) SECONDS INR 0.9 (0.9-1.3) APTT 26 L (26.4-36.2) SECONDS Sodium 138 (137-145) mmol/L Potassium 4.0 (3.4-5.1) mmol/L Chloride 95 L (98-107) mmol/L Carbon Dioxide 29 (22-32) mmol/L BUN 11 (7-17) mg/dL Creatinine 0.60 (0.52-1.04) mg/dL Estimated GFR > 60.0 (>60) mL/min BUN/Creatinine Ratio 18.3 (6-22) Glucose 155 H (70-100) mg/dL Calcium 11.4 H (8.4-10.2) mg/dL Magnesium (1.6-2.3) mg/dL Total Bilirubin 1.2 (0.2-1.3) mg/dL AST 47 H (14-36) IU/L ALT 39 (9-52) IU/L Alkaline Phosphatase 80 (38-126) U/L Total Creatine Kinase (30-135) U/L CK-MB (CK-2) CK-MB (CK-2) Rel Index Troponin I (0.01-0.034) ng/mL Total Protein 8.5 H (6.3-8.2) g/dL Albumin 5.1 H (3.5-5.0) g/dL Globulin 3.4 (1.7-4.1) g/dL Albumin/Globulin Ratio 1.5 (1.0-2.8) Amylase (30-110) U/L Lipase 44 (23-300) U/L Procalcitonin (<0.5) ng/mL Urine RBC (0-5/HPF) Urine WBC (0-5/HPF) Urine Bacteria (None) Ur Culture Indicated? Urine Test (Negative) Urine Opiates Screen (Negative) Ur Oxycodone Screen (Negative) Urine Methadone Screen (Negative) Ur Barbiturates Screen (Negative) U Tricyclic Antidepress (Negative) Ur Phencyclidine Scrn (Negative) Ur Amphetamines Screen (Negative) U Methamphetamines Scrn (Negative) Ur MDMA Scrn (Ecstasy) (Negative) U Benzodiazepines Scrn (Negative) Urine Cocaine Screen (Negative) U Marijuana (THC) Screen (Negative) 12/14/18 12/14/18 12/14/18 Range/Units 13:56 13:56 13:56 WBC (4.5-11.0) X10^3/uL RBC (4.0-5.2) X10^6/uL Hgb (12.0-16.0) g/dL Hct (36-46) % MCV (80-100) fL MCH (26-34) PG MCHC (30-36) % RDW (11.6-14.8) % Plt Count (150-400) X10^3/uL Neut % (Auto) (50-75) % Lymph % (Auto) (25-40) % Nuckolls % (Auto) (3-14) % Eos % (Auto) (2-4) % Baso % (Auto) (0-2) % Neut # (Auto) (3522-9141) /uL Lymph # (Auto) (1704-4215) /uL [place]oll[place] # (Auto) (0-900) /uL Eos # (Auto) (0-450) /uL Baso # (Auto) (0-100) /uL PT (10.1-12.7) SECONDS INR (0.9-1.3) APTT (26.4-36.2) SECONDS Sodium (137-145) mmol/L Potassium (3.4-5.1) mmol/L Chloride (98-107) mmol/L Carbon Dioxide (22-32) mmol/L BUN (7-17) mg/dL Creatinine (0.52-1.04) mg/dL Estimated GFR (>60) mL/min BUN/Creatinine Ratio (6-22) Glucose (70-100) mg/dL Calcium (8.4-10.2) mg/dL Magnesium (1.6-2.3) mg/dL Total Bilirubin (0.2-1.3) mg/dL AST (14-36) IU/L ALT (9-52) IU/L Alkaline Phosphatase (38-126) U/L Total Creatine Kinase 80 (30-135) U/L CK-MB (CK-2) TNP CK-MB (CK-2) Rel Index TNP Troponin I < 0.012 (0.01-0.034) ng/mL Total Protein (6.3-8.2) g/dL Albumin (3.5-5.0) g/dL Globulin (1.7-4.1) g/dL Albumin/Globulin Ratio (1.0-2.8) Amylase 65 (30-110) U/L Lipase (23-300) U/L Procalcitonin < 0.05 (<0.5) ng/mL Urine RBC (0-5/HPF) Urine WBC (0-5/HPF) Urine Bacteria (None) Ur Culture Indicated? Urine Test (Negative) Urine Opiates Screen (Negative) Ur Oxycodone Screen (Negative) Urine Methadone Screen (Negative) Ur Barbiturates Screen (Negative) U Tricyclic Antidepress (Negative) Ur Phencyclidine Scrn (Negative) Ur Amphetamines Screen (Negative) U Methamphetamines Scrn (Negative) Ur MDMA Scrn (Ecstasy) (Negative) U Benzodiazepines Scrn (Negative) Urine Cocaine Screen (Negative) U Marijuana (THC) Screen (Negative) 12/14/18 12/14/18 12/14/18 Range/Units 16:30 16:30 16:30 WBC (4.5-11.0) X10^3/uL RBC (4.0-5.2) X10^6/uL Hgb (12.0-16.0) g/dL Hct (36-46) % MCV (80-100) fL MCH (26-34) PG MCHC (30-36) % RDW (11.6-14.8) % Plt Count (150-400) X10^3/uL Neut % (Auto) (50-75) % Lymph % (Auto) (25-40) % Nuckolls % (Auto) (3-14) % Eos % (Auto) (2-4) % Baso % (Auto) (0-2) % Neut # (Auto) (2594-8503) /uL Lymph # (Auto) (6287-6622) /uL Nuckolls # (Auto) (0-900) /uL Eos # (Auto) (0-450) /uL Baso # (Auto) (0-100) /uL PT (10.1-12.7) SECONDS INR (0.9-1.3) APTT (26.4-36.2) SECONDS Sodium (137-145) mmol/L Potassium (3.4-5.1) mmol/L Chloride (98-107) mmol/L Carbon Dioxide (22-32) mmol/L BUN (7-17) mg/dL Creatinine (0.52-1.04) mg/dL Estimated GFR (>60) mL/min BUN/Creatinine Ratio (6-22) Glucose (70-100) mg/dL Calcium (8.4-10.2) mg/dL Magnesium (1.6-2.3) mg/dL Total Bilirubin (0.2-1.3) mg/dL AST (14-36) IU/L ALT (9-52) IU/L Alkaline Phosphatase (38-126) U/L Total Creatine Kinase (30-135) U/L CK-MB (CK-2) CK-MB (CK-2) Rel Index Troponin I (0.01-0.034) ng/mL Total Protein (6.3-8.2) g/dL Albumin (3.5-5.0) g/dL Globulin (1.7-4.1) g/dL Albumin/Globulin Ratio (1.0-2.8) Amylase (30-110) U/L Lipase (23-300) U/L Procalcitonin (<0.5) ng/mL Urine RBC 0-1/hpf (0-5/HPF) Urine WBC None seen (0-5/HPF) Urine Bacteria Few (2-10) H (None) Ur Culture Indicated? Cult not indicated Urine Test Negative (Negative) Urine Opiates Screen Negative (Negative) Ur Oxycodone Screen Positive H (Negative) Urine Methadone Screen Negative (Negative) Ur Barbiturates Screen Negative (Negative) U Tricyclic Antidepress Negative (Negative) Ur Phencyclidine Scrn Negative (Negative) Ur Amphetamines Screen Negative (Negative) U Methamphetamines Scrn Negative (Negative) Ur MDMA Scrn (Ecstasy) Negative (Negative) U Benzodiazepines Scrn Negative (Negative) Urine Cocaine Screen Negative (Negative) U Marijuana (THC) Screen Positive H (Negative) 12/14/18 Range/Units 23:03 WBC (4.5-11.0) X10^3/uL RBC (4.0-5.2) X10^6/uL Hgb (12.0-16.0) g/dL Hct (36-46) % MCV (80-100) fL MCH (26-34) PG MCHC (30-36) % RDW (11.6-14.8) % Plt Count (150-400) X10^3/uL Neut % (Auto) (50-75) % Lymph % (Auto) (25-40) % Nuckolls % (Auto) (3-14) % Eos % (Auto) (2-4) % Baso % (Auto) (0-2) % Neut # (Auto) (2038-8241) /uL Lymph # (Auto) (0781-1434) /uL [place]olls # (Auto) (0-900) /uL Eos # (Auto) (0-450) /uL Baso # (Auto) (0-100) /uL PT (10.1-12.7) SECONDS INR (0.9-1.3) APTT (26.4-36.2) SECONDS Sodium (137-145) mmol/L Potassium (3.4-5.1) mmol/L Chloride (98-107) mmol/L Carbon Dioxide (22-32) mmol/L BUN (7-17) mg/dL Creatinine (0.52-1.04) mg/dL Estimated GFR (>60) mL/min BUN/Creatinine Ratio (6-22) Glucose (70-100) mg/dL Calcium (8.4-10.2) mg/dL Magnesium 1.1 L (1.6-2.3) mg/dL Total Bilirubin (0.2-1.3) mg/dL AST (14-36) IU/L ALT (9-52) IU/L Alkaline Phosphatase (38-126) U/L Total Creatine Kinase (30-135) U/L CK-MB (CK-2) CK-MB (CK-2) Rel Index Troponin I (0.01-0.034) ng/mL Total Protein (6.3-8.2) g/dL Albumin (3.5-5.0) g/dL Globulin (1.7-4.1) g/dL Albumin/Globulin Ratio (1.0-2.8) Amylase (30-110) U/L Lipase (23-300) U/L Procalcitonin (<0.5) ng/mL Urine RBC (0-5/HPF) Urine WBC (0-5/HPF) Urine Bacteria (None) Ur Culture Indicated? Urine Test (Negative) Urine Opiates Screen (Negative) Ur Oxycodone Screen (Negative) Urine Methadone Screen (Negative) Ur Barbiturates Screen (Negative) U Tricyclic Antidepress (Negative) Ur Phencyclidine Scrn (Negative) Ur Amphetamines Screen (Negative) U Methamphetamines Scrn (Negative) Ur MDMA Scrn (Ecstasy) (Negative) U Benzodiazepines Scrn (Negative) Urine Cocaine Screen (Negative) U Marijuana (THC) Screen (Negative) Urine Dip Bedside Urine Glucose Negative Bedside Urine Bilirubin - Negative Bedside Urine Ketone ++ 40 Urine Specific [place] 1.015 Bedside Urine Occult Blood +/- Bedside Urine pH 7.0 Bedside Urine Protein - Negative Bedside Urine Urobilinogen - Negative Bedside Urine Nitrite - Negative Bedside Urine Leukocytes - Negative Esterase Imaging Data CT scan - abdomen: Radiologist's impression: [address] [address] [address] Scan Report Signed Patient: Maxwell Sibley [facility]#: [id number] : 1965Acct:[id number] Age/Sex: 53 / FDate of Service: 12/14/18 Loc: ED Accession Number: [id number] Procedure: CT abdomen pelvis w con Ordering Provider: Monica Gaffney-BC PROCEDURE: CT ABDOMEN PELVIS W CON INDICATIONS: abd pain, vomiting TECHNIQUE: After the administration of oral and intravenous contrast, 5 mm thick sections acquired from the diaphragms to the symphysis. 5 mm thick coronal and sagittal reformats were performed. For radiation dose reduction, the following was used: automated exposure control, adjustment of mA and/or kV according to patient size. COMPARISON: [facility], CT, ABDOMEN/PELVIS WITH CONTRAST, 12/26/2016, 16:12. [facility], CT, CT ABD PELVIS W CON, 03/18/2015, 6:59. [facility], CT, KUB - CT (PNL), 11/08/2012, 11:38. FINDINGS: Image quality: Diagnostic. ABDOMEN: Lung bases: Lung bases are clear. Heart size is normal. Solid organs: The liver is diffusely hypodense when compared to the spleen. No definite liver lesions are evident. The patient has had a prior cholecystectomy. There is mild prominence of the common bile duct, which is within normal limits given the prior cholecystectomy. The spleen is unremarkable. The adrenals are within normal limits. The kidneys also are within normal limits. There is no hydronephrosis or definite renal calculi. The pancreas is within normal limits. Peritoneum and bowel: There is prominent thickening of the distal esophageal wall. An associated moderate-sized hiatal hernia is present. Otherwise, the stomach is grossly unremarkable. The small bowel loops are nondilated. However, there is wall thickening identified involving the distal ileum within the right lower quadrant (image 50, series 2). There is diffuse thickening of the wall of the colon, which is relatively decompressed. The appendix is well-visualized and normal in size and appearance. No free fluid, loculated fluid collection or free air is evident. Nodes and vessels: No retroperitoneal or mesenteric adenopathy. Aorta and inferior vena cava are normal in caliber. Bones: No acute fracture or suspicious osseous lesion is present. There are [id number] degenerative changes of the lower lumbar spine. PELVIS: Genitourinary: Bladder wall thickness is normal. Miscellaneous: No inguinal hernias or adenopathy. No free fluid or loculated fluid collection is appreciated. Bones: No suspicious bony lesions. No acute pelvic fractures are identified. Mild to moderate degenerative changes of the pelvic joints are present. IMPRESSION: 1. Diffuse thickening of the wall of the colon is suggestive of colitis, which may be infectious or inflammatory in nature and clinical correlation is recommended. (A similar appearance to a lesser degree is present involving the distal ileum.) 2. No bowel obstruction. 3. Thickening of the distal esophageal wall may represent chronic esophagitis. There is a small to moderate-sized hiatal hernia. 4. Hepatic steatosis. Dictated by: Joe Royal M.D. on 12/14/2018 at 15:07 Approved by: Joe Royal M.D. on 12/14/2018 at 15:12 ECG Data Attestation: I personally reviewed and interpreted this ECG as follows: Interpretation: sinus rhythm. Ventricular rate 81. No ST elevation or depression. No ectopy noted. Viewed by Dr. Blackwell at 14:54 MDM Narrative Medical decision making narrative: Id the patient is a 53-year-old female who presents with a chief complaint of nausea and vomiting. She does not have an elevated procalcitonin, has a slightly elevated white blood cell count. She has a negative troponin, normal EKG. She was given several medications throughout her stay in the emergency department to help treat her nausea, including IV fluid, Zofran, Benadryl, Ativan, Reglan and promethazine. I did have an abdominal CT completed, which shows colitis. I did give her some pain medication as well as steroids to see if that would help. It is reassuring that she is afebrile, has a negative lactate. Her slightly elevated WBC could be related to stress and vomiting. It is interesting that the patient states that she has cyclical episodes of this. It may be related to marijuana use. The patient stated several times that she would prefer to go home, but then later requested to stay, as her p.o. trial of water and ice chips made her vomit. She has already had a cholecystectomy, so I did not obtain a right upper quadrant ultrasound at this time. She also has diffuse tenderness throughout her abdomen. Urinalysis was obtained and a culture was not indicated. Patient tested negative for .Triston DORSEY kindly agreed to admit the patient for observation. Patient is in accordance with plan of care. <Kendall Ashton MD - Last Filed: 12/15/18 05:17> Lab Data Lab Results 12/14/18 12/14/18 12/14/18 Range/Units 13:56 13:56 13:56 WBC 14.8 H (4.5-11.0) X10^3/uL RBC 4.17 (4.0-5.2) X10^6/uL Hgb 14.4 (12.0-16.0) g/dL Hct 41.9 (36-46) % MCV 100.5 H (80-100) fL MCH 34.5 H (26-34) PG MCHC 34.3 (30-36) % RDW 13.5 (11.6-14.8) % Plt Count 260 (150-400) X10^3/uL Neut % (Auto) 84.8 H (50-75) % Lymph % (Auto) 10.4 L (25-40) % [place] % (Auto) 4.0 (3-14) % Eos % (Auto) 0.3 L (2-4) % Baso % (Auto) 0.5 (0-2) % Neut # (Auto) 02239 H (9345-0344) /uL Lymph # (Auto) 1500 (2450-6808) /uL [place] # (Auto) 600 (0-900) /uL Eos # (Auto) 0 (0-450) /uL Baso # (Auto) 100 (0-100) /uL PT 10.5 (10.1-12.7) SECONDS INR 0.9 (0.9-1.3) APTT 26 L (26.4-36.2) SECONDS Sodium 138 (137-145) mmol/L Potassium 4.0 (3.4-5.1) mmol/L Chloride 95 L (98-107) mmol/L Carbon Dioxide 29 (22-32) mmol/L BUN 11 (7-17) mg/dL Creatinine 0.60 (0.52-1.04) mg/dL Estimated GFR > 60.0 (>60) mL/min BUN/Creatinine Ratio 18.3 (6-22) Glucose 155 H (70-100) mg/dL Calcium 11.4 H (8.4-10.2) mg/dL Magnesium (1.6-2.3) mg/dL Total Bilirubin 1.2 (0.2-1.3) mg/dL AST 47 H (14-36) IU/L ALT 39 (9-52) IU/L Alkaline Phosphatase 80 (38-126) U/L Total Creatine Kinase (30-135) U/L CK-MB (CK-2) CK-MB (CK-2) Rel Index Troponin I (0.01-0.034) ng/mL Total Protein 8.5 H (6.3-8.2) g/dL Albumin 5.1 H (3.5-5.0) g/dL Globulin 3.4 (1.7-4.1) g/dL Albumin/Globulin Ratio 1.5 (1.0-2.8) Amylase (30-110) U/L Lipase 44 (23-300) U/L Procalcitonin (<0.5) ng/mL Urine RBC (0-5/HPF) Urine WBC (0-5/HPF) Urine Bacteria (None) Ur Culture Indicated? Urine Test (Negative) Urine Opiates Screen (Negative) Ur Oxycodone Screen (Negative) Urine Methadone Screen (Negative) Ur Barbiturates Screen (Negative) U Tricyclic Antidepress (Negative) Ur Phencyclidine Scrn (Negative) Ur Amphetamines Screen (Negative) U Methamphetamines Scrn (Negative) Ur MDMA Scrn (Ecstasy) (Negative) U Benzodiazepines Scrn (Negative) Urine Cocaine Screen (Negative) U Marijuana (THC) Screen (Negative) 12/14/18 12/14/18 12/14/18 Range/Units 13:56 13:56 13:56 WBC (4.5-11.0) X10^3/uL RBC (4.0-5.2) X10^6/uL Hgb (12.0-16.0) g/dL Hct (36-46) % MCV (80-100) fL MCH (26-34) PG MCHC (30-36) % RDW (11.6-14.8) % Plt Count (150-400) X10^3/uL Neut % (Auto) (50-75) % Lymph % (Auto) (25-40) % [place] % (Auto) (3-14) % Eos % (Auto) (2-4) % Baso % (Auto) (0-2) % Neut # (Auto) (3036-7646) /uL Lymph # (Auto) (9076-2971) /uL [place] # (Auto) (0-900) /uL Eos # (Auto) (0-450) /uL Baso # (Auto) (0-100) /uL PT (10.1-12.7) SECONDS INR (0.9-1.3) APTT (26.4-36.2) SECONDS Sodium (137-145) mmol/L Potassium (3.4-5.1) mmol/L Chloride (98-107) mmol/L Carbon Dioxide (22-32) mmol/L BUN (7-17) mg/dL Creatinine (0.52-1.04) mg/dL Estimated GFR (>60) mL/min BUN/Creatinine Ratio (6-22) Glucose (70-100) mg/dL Calcium (8.4-10.2) mg/dL Magnesium (1.6-2.3) mg/dL Total Bilirubin (0.2-1.3) mg/dL AST (14-36) IU/L ALT (9-52) IU/L Alkaline Phosphatase (38-126) U/L Total Creatine Kinase 80 (30-135) U/L CK-MB (CK-2) TNP CK-MB (CK-2) Rel Index TNP Troponin I < 0.012 (0.01-0.034) ng/mL Total Protein (6.3-8.2) g/dL Albumin (3.5-5.0) g/dL Globulin (1.7-4.1) g/dL Albumin/Globulin Ratio (1.0-2.8) Amylase 65 (30-110) U/L Lipase (23-300) U/L Procalcitonin < 0.05 (<0.5) ng/mL Urine RBC (0-5/HPF) Urine WBC (0-5/HPF) Urine Bacteria (None) Ur Culture Indicated? Urine Test (Negative) Urine Opiates Screen (Negative) Ur Oxycodone Screen (Negative) Urine Methadone Screen (Negative) Ur Barbiturates Screen (Negative) U Tricyclic Antidepress (Negative) Ur Phencyclidine Scrn (Negative) Ur Amphetamines Screen (Negative) U Methamphetamines Scrn (Negative) Ur MDMA Scrn (Ecstasy) (Negative) U Benzodiazepines Scrn (Negative) Urine Cocaine Screen (Negative) U Marijuana (THC) Screen (Negative) 12/14/18 12/14/18 12/14/18 Range/Units 16:30 16:30 16:30 WBC (4.5-11.0) X10^3/uL RBC (4.0-5.2) X10^6/uL Hgb (12.0-16.0) g/dL Hct (36-46) % MCV (80-100) fL MCH (26-34) PG MCHC (30-36) % RDW (11.6-14.8) % Plt Count (150-400) X10^3/uL Neut % (Auto) (50-75) % Lymph % (Auto) (25-40) % [place] % (Auto) (3-14) % Eos % (Auto) (2-4) % Baso % (Auto) (0-2) % Neut # (Auto) (7985-5828) /uL Lymph # (Auto) (8785-1477) /uL [place] # (Auto) (0-900) /uL Eos # (Auto) (0-450) /uL Baso # (Auto) (0-100) /uL PT (10.1-12.7) SECONDS INR (0.9-1.3) APTT (26.4-36.2) SECONDS Sodium (137-145) mmol/L Potassium (3.4-5.1) mmol/L Chloride (98-107) mmol/L Carbon Dioxide (22-32) mmol/L BUN (7-17) mg/dL Creatinine (0.52-1.04) mg/dL Estimated GFR (>60) mL/min BUN/Creatinine Ratio (6-22) Glucose (70-100) mg/dL Calcium (8.4-10.2) mg/dL Magnesium (1.6-2.3) mg/dL Total Bilirubin (0.2-1.3) mg/dL AST (14-36) IU/L ALT (9-52) IU/L Alkaline Phosphatase (38-126) U/L Total Creatine Kinase (30-135) U/L CK-MB (CK-2) CK-MB (CK-2) Rel Index Troponin I (0.01-0.034) ng/mL Total Protein (6.3-8.2) g/dL Albumin (3.5-5.0) g/dL Globulin (1.7-4.1) g/dL Albumin/Globulin Ratio (1.0-2.8) Amylase (30-110) U/L Lipase (23-300) U/L Procalcitonin (<0.5) ng/mL Urine RBC 0-1/hpf (0-5/HPF) Urine WBC None seen (0-5/HPF) Urine Bacteria Few (2-10) H (None) Ur Culture Indicated? Cult not indicated Urine Test Negative (Negative) Urine Opiates Screen Negative (Negative) Ur Oxycodone Screen Positive H (Negative) Urine Methadone Screen Negative (Negative) Ur Barbiturates Screen Negative (Negative) U Tricyclic Antidepress Negative (Negative) Ur Phencyclidine Scrn Negative (Negative) Ur Amphetamines Screen Negative (Negative) U Methamphetamines Scrn Negative (Negative) Ur MDMA Scrn (Ecstasy) Negative (Negative) U Benzodiazepines Scrn Negative (Negative) Urine Cocaine Screen Negative (Negative) U Marijuana (THC) Screen Positive H (Negative) 12/14/18 Range/Units 23:03 WBC (4.5-11.0) X10^3/uL RBC (4.0-5.2) X10^6/uL Hgb (12.0-16.0) g/dL Hct (36-46) % MCV (80-100) fL MCH (26-34) PG MCHC (30-36) % RDW (11.6-14.8) % Plt Count (150-400) X10^3/uL Neut % (Auto) (50-75) % Lymph % (Auto) (25-40) % [place] % (Auto) (3-14) % Eos % (Auto) (2-4) % Baso % (Auto) (0-2) % Neut # (Auto) (0858-3671) /uL Lymph # (Auto) (7765-7302) /uL [place] # (Auto) (0-900) /uL Eos # (Auto) (0-450) /uL Baso # (Auto) (0-100) /uL PT (10.1-12.7) SECONDS INR (0.9-1.3) APTT (26.4-36.2) SECONDS Sodium (137-145) mmol/L Potassium (3.4-5.1) mmol/L Chloride (98-107) mmol/L Carbon Dioxide (22-32) mmol/L BUN (7-17) mg/dL Creatinine (0.52-1.04) mg/dL Estimated GFR (>60) mL/min BUN/Creatinine Ratio (6-22) Glucose (70-100) mg/dL Calcium (8.4-10.2) mg/dL Magnesium 1.1 L (1.6-2.3) mg/dL Total Bilirubin (0.2-1.3) mg/dL AST (14-36) IU/L ALT (9-52) IU/L Alkaline Phosphatase (38-126) U/L Total Creatine Kinase (30-135) U/L CK-MB (CK-2) CK-MB (CK-2) Rel Index Troponin I (0.01-0.034) ng/mL Total Protein (6.3-8.2) g/dL Albumin (3.5-5.0) g/dL Globulin (1.7-4.1) g/dL Albumin/Globulin Ratio (1.0-2.8) Amylase (30-110) U/L Lipase (23-300) U/L Procalcitonin (<0.5) ng/mL Urine RBC (0-5/HPF) Urine WBC (0-5/HPF) Urine Bacteria (None) Ur Culture Indicated? Urine Test (Negative) Urine Opiates Screen (Negative) Ur Oxycodone Screen (Negative) Urine Methadone Screen (Negative) Ur Barbiturates Screen (Negative) U Tricyclic Antidepress (Negative) Ur Phencyclidine Scrn (Negative) Ur Amphetamines Screen (Negative) U Methamphetamines Scrn (Negative) Ur MDMA Scrn (Ecstasy) (Negative) U Benzodiazepines Scrn (Negative) Urine Cocaine Screen (Negative) U Marijuana (THC) Screen (Negative) Urine Dip Bedside Urine Glucose Negative Bedside Urine Bilirubin - Negative Bedside Urine Ketone ++ 40 Urine Specific [place] 1.015 Bedside Urine Occult Blood +/- Bedside Urine pH 7.0 Bedside Urine Protein - Negative Bedside Urine Urobilinogen - Negative Bedside Urine Nitrite - Negative Bedside Urine Leukocytes - Negative Esterase Discharge Plan Departure Patient Disposition: Admitted as Observation Clinical Impression: Intractable nausea and vomiting Qualifiers: Vomiting type: unspecified Qualified Code(s): R11.2 - Nausea with vomiting, unspecified Discharge Date/Time: 12/14/18 21:57 Interventions: ED Discharge Assessment Last Done: 12/14/18 21:56 Admit Date/Time: 12/14/18 21:06 Admit Provider: Walter Goldstein <Kendall Ashton MD - Last Filed: 12/15/18 05:17> Cosign ED Attending Cosignature Attestation: I was present in the ER at the time of this patient's care. I was available for consultation or to evaluate the patient directly. I agree with the evaluation, assessment and treatment plan.
[2018-12-14] MEDS: SODIUM CHLORIDE 0.9% 1,000 ML 125 ML IV (21:14)
[2018-12-14] MEDS: KETOROLAC 30 MG/ML VIAL IV (21:38)
[2018-12-14 21:41] VITALS: BP 161/77; PULSE 94; RESP 16; TEMP 36.9; O2SAT 100
--- NOTE | 2018-12-14 21:57 | PC.NURSE ---
IV pulled out by patient with tip intact. IV restarted as documented.
[2018-12-14 22:18] VITALS: BMI 25.7
--- NOTE | 2018-12-14 22:42 | PC.NURSE ---
Pt to room 228 from E.R. awake and alert. C/o back and leg pain and left lower abdominal pain. Occasional retching during admission process. IV fluids infusing as per E.R. Pt asks TOUR DIRECTOR for meds for pain. This business writer informed pt will await hospitalist to see patient to generate orders. Pt declines to secure valuables. Has purse at bedside. Bed alarm set and pt instructed to call if needing/desiring out of bed. Does report slight improvement in nausea. NPO until further orders.
[2018-12-14 22:53] VITALS: BP 186/106; PULSE 86; RESP 18; TEMP 37.5; O2SAT 98
--- NOTE | 2018-12-14 23:14 | PM.HP.1 ---
History of Present Illness Date Patient Seen: 12/14/18 Time Patient Seen: 23:14 Chief complaint: possible pancreatitis Narrative: Ms. Naz Sibley is a 53-year-old female with a history significant for history pancreatitis, cyclic nausea and vomiting, lumbar degenerative joint disease, sciatica and paroxysmally atrial fibrillation who presents to the ER today with nausea vomiting. The patient reports starting to have nausea vomiting at 1:00 a.m. this morning and reports that she has had episodic nausea vomiting every few months lasting between 24-48 hours. She states typically she rides and out however her boyfriend coax her to present to the ER. The patient also has history of pancreatitis is concerned for the same period the patient has had associated symptoms of fevers and chills but denies diarrhea. Her emesis was initially bile and has now progressed to dry heaves. She reports no hematemesis and has had no abdominal pain with her last bowel movement today. She has used marijuana products to help with the nausea vomiting with no benefit. She has undergone workup with Gastroenterology with colonoscopy and EGD in 2014 with no significant findings. She denies recent illness and has no headaches, dizziness or nasal congestion. She has throat irritation related to vomiting. She denies chest pain but has a history of palpitations describes her heart is going crazy today. She denies shortness of breath cough or wheeze. She has abdominal wall pain from protracted vomiting but no tenderness on palpation and describes no changes in bowel habits, dysuria or hematuria. Upon arrival in the ER the patient is afebrile with a temperature 96.3?, hypertensive at 189/106, heart rate of 108, respirations of 18 and saturation at 97%. Patient underwent CT of the abdomen which finds esophageal wall thickening, hepatic steatosis, colonic wall thickening but no obstruction. She has a mildly elevated white count at 14.8, hemoglobin of 14.4 and a crit of 41.9 and platelets of 260. Her lipase and amylase are in normal, procalcitonin is negative, urinalysis is negative and urine is negative. Her electrolytes are within normal limits and has a BUN of 11 and creatinine of 0.6 and non fasting glucose 155. She has a mild elevation in her AST at 47 but the remainder of LFTs within normal limits. In the ER patient received promethazine 20 mg, Ativan 1 mg, Zofran 4 mg x3, Protonix 40 mg, methylprednisolone 125, Benadryl 25 mg Reglan 10 mg and 2 L of normal saline without relief, the patient is admitted for intractable nausea vomiting. Patient History Medical History Degenerative joint disease (DJD) of lumbar spine (Acute) Low back pain (Acute) Sciatica associated with disorder of lumbar spine (Acute) Paroxysmal atrial fibrillation (Acute) Surgical History History of cholecystectomy (Acute) History of colonoscopy (Acute) History of esophagogastroduodenoscopy (EGD) (Acute) History of local excision of skin lesion (Acute) Social History household members: family Smoking Status: Current every day smoker alcohol intake: current substance use type: does not use Family & Social History Social History: household members family Prior Living Arrangements House Safety & Behavioral: Feels Safe in Current Yes Environment Been Physically Hurt or No Threatened By a Person Suicidal Ideation Description None Suicide Plan Description No Plan Tobacco & Substance use: Tobacco type cigarettes Smoking Status Current every day smoker Smoking packs per day 0.5 alcohol intake current alcohol intake frequency a few times a week Substance Use Type marijuana Comment: Patient lives in a house with her mother. She Is currently single, has a boyfriend. Patient's father was a smoker and has COPD and degenerate joint disease. Her mother has arthritis and osteoporosis. She has 1 brother and 1 sister whom she does not know their health history and has had no children. Occupation: windows server support technician Smoking: Patient smokes approximately 2 packs per week for 35 years. Alcohol: She has decreased her alcohol intake to 2 drinks every 3 days. Substance use: Patient denies current use of cannabis but has in the past. Advanced directives: In direct discussion with the patient she states her wish to be FULL CODE. She designates her mother to be her surrogate decision maker. Meds Home Medications Medication Instructions Recorded Confirmed Type calcium carbonate [Tums E-X] 300 mg PO PRN PRN #0 12/26/16 History carvedilol [Coreg] 6.25 mg PO BID #0 12/26/16 12/14/18 History hydroxyzine HCl 25 mg PO Q6H PRN #0 12/26/16 12/14/18 History hydrocodone-acetaminophen [[place]] 1 tab PO Q6H PRN #10 tab 10/13/18 12/14/18 Rx gabapentin 600 mg PO TID 12/14/18 12/14/18 History ketorolac 10 mg PO QID PRN 12/14/18 12/14/18 History methocarbamol 500 mg PO BEDTIME 12/14/18 12/14/18 History oxycodone 5 mg PO DAILY PRN 12/14/18 12/14/18 History ranitidine HCl 150 mg PO BID PRN 12/14/18 12/14/18 History tizanidine 4 mg PO BID 12/14/18 12/14/18 History Allergies Allergy/AdvReac Type Severity Reaction Status Date / Time No Known Allergies Allergy Uncoded 09/06/17 12:36 Review of Systems Review of Systems All systems reviewed & are unremarkable except as noted in HPI and below Exam Vital Signs (past 8 hours): - 12/14/18 18:21 12/14/18 19:00 12/14/18 21:41 Temperature 98.4 F Pulse Rate 89 88 94 H Respiratory Rate 14 14 16 Blood Pressure Blood Pressure [Left Arm] 158/78 H 158/78 H 161/77 H Pulse Oximetry 98 98 100 12/14/18 22:53 Temperature 99.5 F Pulse Rate 86 Respiratory Rate 18 Blood Pressure 186/106 H Blood Pressure [Left Arm] Pulse Oximetry 98 Oxygen Delivery Method Room Air Narrative Exam Narrative: GENERAL APPEARANCE: well developed, well nourished, in no acute distress. HEAD: Normocephalic, atraumatic, no scalp lesions. EYES: pupils equal, 2 mm, round, reactive to light and accommodation, sclera non-icteric, extraocular movement intact without nystagmus. EARS: normal external structures, no ear pain NOSE: sinuses non tender to percussion, no rhinorrhea ORAL CAVITY: mucosa moist without lesions or exudate, palate normal, tongue in midline. THROAT: normal, no erythema, no exudate, posterior pharynx normal, uvula midline. NECK/THYROID: neck supple, no jugular venous distention, no carotid bruit, no thyromegaly, trachea midline. LYMPH NODES: no cervical or supraclavicular lymphadenopathy. SKIN: warm and dry, no suspicious lesions, no rashes, good turgor. HEART: regular rate and rhythm, S1-S2 without murmur, no rubs or gallops, brisk capillary refill, 1+ bilateral posterior tibial pulses, no edema LUNGS: clear to auscultation bilaterally, no coarseness crackles or wheezing, no cough present CHEST: Symmetrical movement, no accessory muscle use, no pain to AP and lateral compression. ABDOMEN: Soft, dull to percussion, epigastric pain with generalized abdominal tenderness on palpation, no guarding or peritoneal signs, no organomegaly, no flank or suprapubic tenderness, bowel tones present. BACK: Lumbar spine pain on palpation without palpable muscle spasms. EXTREMITIES: moves all extremities, strength is 5/5 and symmetrical, no deformities or joint effusions. NEUROLOGIC: AAO x4, no focal neurologic deficits, cranial nerves II-XII grossly intact , motor strength normal upper and lower extremities, sensory exam intact to light touch, hearing grossly normal to speech. PSYCH: alert, cognitive function intact, tearful at times, fair eye contact. Objective Labs Result Diagrams: 12/14/18 13:56 12/14/18 13:56 Labs: Laboratory Results - last 24 hr 12/14/18 12/14/18 12/14/18 13:56 13:56 13:56 WBC 14.8 H RBC 4.17 Hgb 14.4 Hct 41.9 MCV 100.5 H MCH 34.5 H MCHC 34.3 RDW 13.5 Plt Count 260 Neut % (Auto) 84.8 H Lymph % (Auto) 10.4 L [place] % (Auto) 4.0 Eos % (Auto) 0.3 L Baso % (Auto) 0.5 Neut # (Auto) 18187 H Lymph # (Auto) 1500 [place] # (Auto) 600 Eos # (Auto) 0 Baso # (Auto) 100 PT 10.5 INR 0.9 APTT 26 L Sodium 138 Potassium 4.0 Chloride 95 L Carbon Dioxide 29 BUN 11 Creatinine 0.60 Estimated GFR > 60.0 BUN/Creatinine Ratio 18.3 Glucose 155 H Calcium 11.4 H Total Bilirubin 1.2 AST 47 H ALT 39 Alkaline Phosphatase 80 Total Creatine Kinase CK-MB (CK-2) CK-MB (CK-2) Rel Index Troponin I Total Protein 8.5 H Albumin 5.1 H Globulin 3.4 Albumin/Globulin Ratio 1.5 Amylase Lipase 44 Procalcitonin Urine RBC Urine WBC Urine Bacteria Ur Culture Indicated? Urine Test Urine Opiates Screen Ur Oxycodone Screen Urine Methadone Screen Ur Barbiturates Screen U Tricyclic Antidepress Ur Phencyclidine Scrn Ur Amphetamines Screen U Methamphetamines Scrn Ur MDMA Scrn (Ecstasy) U Benzodiazepines Scrn Urine Cocaine Screen U Marijuana (THC) Screen 12/14/18 12/14/18 12/14/18 13:56 13:56 13:56 WBC RBC Hgb Hct MCV MCH MCHC RDW Plt Count Neut % (Auto) Lymph % (Auto) [place] % (Auto) Eos % (Auto) Baso % (Auto) Neut # (Auto) Lymph # (Auto) [place] # (Auto) Eos # (Auto) Baso # (Auto) PT INR APTT Sodium Potassium Chloride Carbon Dioxide BUN Creatinine Estimated GFR BUN/Creatinine Ratio Glucose Calcium Total Bilirubin AST ALT Alkaline Phosphatase Total Creatine Kinase 80 CK-MB (CK-2) TNP CK-MB (CK-2) Rel Index TNP Troponin I < 0.012 Total Protein Albumin Globulin Albumin/Globulin Ratio Amylase 65 Lipase Procalcitonin < 0.05 Urine RBC Urine WBC Urine Bacteria Ur Culture Indicated? Urine Test Urine Opiates Screen Ur Oxycodone Screen Urine Methadone Screen Ur Barbiturates Screen U Tricyclic Antidepress Ur Phencyclidine Scrn Ur Amphetamines Screen U Methamphetamines Scrn Ur MDMA Scrn (Ecstasy) U Benzodiazepines Scrn Urine Cocaine Screen U Marijuana (THC) Screen 12/14/18 12/14/18 12/14/18 16:30 16:30 16:30 WBC RBC Hgb Hct MCV MCH MCHC RDW Plt Count Neut % (Auto) Lymph % (Auto) [place] % (Auto) Eos % (Auto) Baso % (Auto) Neut # (Auto) Lymph # (Auto) [place] # (Auto) Eos # (Auto) Baso # (Auto) PT INR APTT Sodium Potassium Chloride Carbon Dioxide BUN Creatinine Estimated GFR BUN/Creatinine Ratio Glucose Calcium Total Bilirubin AST ALT Alkaline Phosphatase Total Creatine Kinase CK-MB (CK-2) CK-MB (CK-2) Rel Index Troponin I Total Protein Albumin Globulin Albumin/Globulin Ratio Amylase Lipase Procalcitonin Urine RBC 0-1/hpf Urine WBC None seen Urine Bacteria Few (2-10) H Ur Culture Indicated? Cult not indicated Urine Test Negative Urine Opiates Screen Negative Ur Oxycodone Screen Positive H Urine Methadone Screen Negative Ur Barbiturates Screen Negative U Tricyclic Antidepress Negative Ur Phencyclidine Scrn Negative Ur Amphetamines Screen Negative U Methamphetamines Scrn Negative Ur MDMA Scrn (Ecstasy) Negative U Benzodiazepines Scrn Negative Urine Cocaine Screen Negative U Marijuana (THC) Screen Positive H Assessment & Plan Assessment & Plan narrative: This is a 53-year-old female patient who was admitted to the hospital with a history of cyclical vomiting and currently intractable nausea vomiting to medical therapy. 1. Acute Intractable nausea vomiting, present on admission. -blood history of cyclical vomiting every few months lasting for 24-28 hours. Onset of nausea vomiting was approximately 20 hours ago. -patient received multiple medications in the ER without resolution of the nausea vomiting. -will obtain H pylori by stool and GI PCR panel -patient will remain NPO -IV normal saline at 125 cc/hour -nausea be treated with Ativan 0.5 mg every 4 hours or promethazine 12.5 mg every 6 hours or Zofran 8 mg every 8 hours as needed. -patient also received pantoprazole 40 mg daily. 2. Chronic lumbar degenerative disc disease, active -patient complains of active lumbar spine pain currently under evaluation. -she has home meds of ketorolac 10 mg and Robaxin 500 mg at bedtime which are held at this time. 3. Chronic sciatica, active -patient with chronic pain related to her lumbar degenerative disease. -home meds include [place] 5/325 every 6 hours as needed, oxycodone 5 mg daily and gabapentin 600 mg 3 times daily. -Dilaudid 0.5 mg every 6 hours as needed for pain 4. Paroxysmal atrial fibrillation, active -patient reports history of extensive palpitations earlier today, she is on no anticoagulation. -rhythm controlled with carvedilol 6.25 mg twice daily,regular rhythm on exam, patient placed on tele, will continue carvedilol. -potassium is 4.0, will check magnesium and treat as needed. The patient was treated in the ER with multiple interventions without resolution of nausea vomiting. The patient is admitted for intractable nausea vomiting on observation status with expected length of stay to be less than 2 midnights. Scores [facility] [place] coma scale eye opening: Spontaneous Ayesha coma scale verbal response: Orientated Ayesha coma scale motor response: Obey commands Ayesha coma scale total score: 15
[2018-12-14 23:30] VITALS: BP 162/99; PULSE 85; RESP 16; TEMP 37.4; O2SAT 100
[2018-12-14 23:32] LABS: Magnesium 1.1 mg/dL (1.6-2.3)
[2018-12-15] VITALS (9 sets, daily range): BP systolic 120–165; BP diastolic 74–98; PULSE 78–102; RESP 16–18; TEMP 36.6–37.1; O2SAT 92–98
[2018-12-15] MEDS: SODIUM CHLORIDE 0.9% 1,000 ML 150 ML IV (00:04)
[2018-12-15] MEDS: HYDROMORPHONE 0.5 MG INJ IV ×3 (00:20→12:43)
[2018-12-15] MEDS: methylPREDNISolone 125 MG/2 ML VIAL 20 MG IV (00:50)
[2018-12-15] MEDS: MAGNESIUM SULFATE 2 GM/50 ML PIGGYBACK IV (01:14)
[2018-12-15] MEDS: LORazepam 2 MG/ML INJ 0.5 MG IV ×3 (03:31→19:11)
--- NOTE | 2018-12-15 04:08 | PC.NURSE ---
Cont. to C/O nausea after medicated with 0.5 mg. of Lorazepam IVP for anxiety and nausea. Requested anti-emetic 8 mg. of Zofran admin. via infusion pump. Ambulated to the BR X2. voided but no stool noted. Will cont. POC & monitor.
[2018-12-15] MEDS: ONDANSETRON 8 MG in SODIUM CHLORIDE 0.9% 50 ML 216 ML IV (04:16)
[2018-12-15 05:33] LABS: Add Manual Diff / Slide Review NO; Basophils Absolute Auto 0 /uL (0-100); Basophils Percent Auto 0.1 % (0-2); Eosinophils Absolute Auto 0 /uL (0-450); Hematocrit 38.5 % (36-46); Hemoglobin 13.2 g/dL (12.0-16.0); Lymphocytes Absolute Auto 500 /uL (1100-4500); Lymphocytes Percent Auto 4.7 % (25-40); Mean Corpuscular HGB Conc 34.4 % (30-36); Mean Corpuscular Hemoglobin 34.9 PG (26-34); Mean Corpuscular Volume 101.5 fL (80-100); Monocytes Absolute Auto 100 /uL (0-900); Neutrophils Absolute Auto 9600 /uL (1500-7000); Neutrophils Percent Auto 94.2 % (50-75); Platelet Count 214 X10^3/uL (150-400); Red Blood Cell Count 3.79 X10^6/uL (4.0-5.2); White Blood Cell Count 10.2 X10^3/uL (4.5-11.0)
[2018-12-15 05:51] LABS: Magnesium 2.1 mg/dL (1.6-2.3)
[2018-12-15 06:23] LABS: Blood Urea Nitrogen 10 mg/dL (7-17); Calcium 9.8 mg/dL (8.4-10.2); Carbon Dioxide 27 mmol/L (22-32); Chloride 92 mmol/L (98-107); Estimated Glomerular Filt Rate > 60.0 mL/min (>60); Glucose 168 mg/dL (70-100); HEMOLYSIS < 15 (0-50); Potassium 3.8 mmol/L (3.4-5.1); Sodium 134 mmol/L (137-145)
[2018-12-15] MEDS: SODIUM CHLORIDE 0.9% 1,000 ML 125 ML IV ×2 (08:25→17:05)
[2018-12-15] MEDS: PANTOPRAZOLE 40 MG VIAL IV (08:31)
[2018-12-15] MEDS: CARVEDILOL 6.25 MG TABLET PO ×2 (08:31→21:21)
[2018-12-15] MEDS: TIZANIDINE 4 MG TABLET PO ×2 (08:31→21:20)
[2018-12-15] MEDS: GABAPENTIN 600 MG TABLET PO ×3 (08:31→21:23)
[2018-12-15 08:32] LABS: Procalcitonin < 0.05 ng/mL (<0.5)
--- NOTE | 2018-12-15 10:32 | PT.IIE ---
Surgical History (Last Reviewed 12/15/18 @ 00:54 by SUNITA See) History of cholecystectomy (Acute) History of colonoscopy (Acute) History of esophagogastroduodenoscopy (EGD) (Acute) History of local excision of skin lesion (Acute) Medical History (Last Reviewed 12/15/18 @ 00:54 by SUNITA See) Degenerative joint disease (DJD) of lumbar spine (Acute) Low back pain (Acute) Sciatica associated with disorder of lumbar spine (Acute) Paroxysmal atrial fibrillation (Acute) Physical Therapy Inpatient Evaluation/Re-Eval M1 PT/OT-IP Prior Functional Status Start: 12/15/18 13:41 Freq: NEEDED Status: Active Protocol: Document 12/15/18 10:32 AB (Rec: 12/15/18 13:56 AB [id number]) Medical Review Prior Functional Status Medical History Reviewed Yes Communication able to make needs known Mobility and Gait pt stated that she is modified independent with all mobilities and ambulation using a quad cane Social History Household Members family Living Arrangements House Number of Floors (Floors) One Floor Number of Stairs To Enter/Railing? ramp to enter Home Environment Standard Height Toilet Walk in Shower Home Equipment Quad Cane Shower Seat with Backrest Grab Bars Near Toilet Grab Bars In Shower Additional Social History Comment pt lives with her mom but her mom will not be able to physically assist her M2 PT-IP Current Condition Start: 12/15/18 13:41 Freq: NEEDED Status: Active Protocol: Document 12/15/18 10:32 AB (Rec: 12/15/18 13:56 AB [id number]) Physical Therapy Current Condition Current Condition Evaluation Date 12/15/18 Treatment Diagnosis vomiting; difficulty in ambulation Onset Date 12/14/18 M3 PT-IP Subjective Start: 12/15/18 13:41 Freq: NEEDED Status: Active Protocol: Document 12/15/18 10:32 AB (Rec: 12/15/18 13:56 AB [id number]) Subjective Physical Therapy Visit Type Type Initial Evaluation Visit Start Time 10:32 Visit Stop Time 11:27 Total Visit Minutes 55 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 Physical Therapy Visit Comments Patient Comments pt agreeable to do PT; pt is complaining more of sciatic pain than abdominal or vomiting Therapy Pain Assessment Pain When Pain Assessed At Rest Pain Present Pain Present Pain Reported Location Right Leg Intensity 3 Scale Used increase with mobility; pain from hip down to foot Description Spasm Pain Management Techniques Re-positioning Timing of Activity with Medications M4 PT-IP Mobility and Gait Start: 12/15/18 13:41 Freq: NEEDED Status: Active Protocol: Document 12/15/18 10:32 AB (Rec: 12/15/18 13:56 AB [id number]) PT-Bed Mobility Assessment Rolling Type of Rolling Log Rolling Level of Assist Standby Assistance Supine to Sit Supine to Sit Standby Assistance Sit to Supine Sit to Supine Standby Assistance Scooting Scooting to Edge of Bed Standby Assistance PT-Transfer Assessment Sit to and From Stand Sit to and from Stand Standby Assistance Contact Guard Assistance Equipment Transfer Assistive Device Gait Belt Front Wheeled Walker Orthotic/Prosthetic Devices or Brace: No Gait Assessment Gait Gait Assistance Required: Standby Assistance Contact Guard Assist Distance (Feet) 75 Able to Maintain Weight Bearing Status Yes During Gait Assistive Devices Assistive Device Gait Belt Straight Cane Front Wheeled Walker Orthotic/Prosthetic Devices or Brace: No Gait Deviations General Gait Pattern Antalgic Factors Limiting Gait Function Factors Limiting Gait Function Decreased Activity Tolerance Decreased Strength Limited Range of Motion Pain Poor Balance Comments Gait Comments pt completed ambulation using FWW SBA to CGA ~ 75 ft; assessed ambulation using SPc and completed requiring SBA to CGA ~ 30 ft PT-Balance Assessment Sitting Balance and Reactions Static Sitting Balance Ability Good Dynamic Sitting Balance Ability Good Standing Balance and Reactions Static Standing Balance Ability Fair Dynamic Standing Balance Ability Fair Device Used FWW M5 PT-IP Objective Assessments Start: 12/15/18 13:41 Freq: NEEDED Status: Active Protocol: Document 12/15/18 10:32 AB (Rec: 12/15/18 13:56 AB [id number]) Orientation Orientation/Cognition Level of Alertness Alert Orientation Name Age Place Situation Safety Awareness Understands Safety Issues Memory Description Short Term Impaired Gross Range of Motion Lower Extremity ROM Assessment Within Functional Limits Strength Lower Extremity Strength Assessment Within Functional Limits Coordination Assessment Gross Coordination Gross Coordination WNL Sensation Assessment Sensation Gross Sensation WNL Muscle Tone Muscle Tone WNL Yes Other Assessments Other Other Assessments (+) SLR (+) JONY Palpation: slight paravertebral tightness M6 PT-IP Treatment Start: 12/15/18 13:41 Freq: NEEDED Status: Active Protocol: Document 12/15/18 10:32 AB (Rec: 12/15/18 13:56 AB [id number]) Physical Therapy Treatment Education Education Provided Precautions Safety Other Treatments Other Treatment Performed educated on log roll bed mobility and positioning to decrease back pain. M7 PT-IP Assessment and Plan Start: 12/15/18 13:41 Freq: NEEDED Status: Active Protocol: Document 12/15/18 10:32 AB (Rec: 12/15/18 13:56 AB [id number]) PT Summary Assessment and Plan Potential Rehabilitation Potential Fair Status of Condition at Evaluation Stable Summary Impairments Pain ROM Strength Balance Bed Mobility Transfers Gait Activity Tolerance Assessment Summary pt requiring SBA with mobility . c/o more of LBP and stated that it is chronic pain and wanting to know if the doctor can do surgery or do steroid shots. informed pt that PT does not have any information and has to refer to her doctor . pt educated on back precautions and positioning to relieve back pain. pt understood. pt may go home when medically stable. Goals Bed Mobility Goal Independent Transfer Goal Independent Cane Gait Goal Independent Cane Gait Distance 200 Days to Meet Goals 5 Frequency of Treatment Frequency Of Treatment Once a Day Treatment Plan Physical Therapy Treatment Plan Bed Mobility Training Transfer Training Gait Training Therapeutic Exercise Balance Retraining Discharge Planning Hot or Cold Pack Neuromuscular Re-ed Coordination Retraining Manual Therapy Recommendations To Nursing Amount of Assist Needed Standby Assistance Discharge Recommendations PT Discharge Recommendations Home Outpatient PT
--- NOTE | 2018-12-15 11:40 | PM.CN ---
History of Present Illness Date Patient Seen: 12/15/18 Time Patient Seen: 11:41 Chief complaint: possible pancreatitis Narrative: 53-year-old white female patient with ongoing symptoms of gastroparesis for years. She has chronic reflux for the last 5 years. She has had an EGD which shows hiatal hernia and esophagitis. She has really not been on any medical regimen for treatment of GERD. She has severe low back pain with radiculopathy on the right side and is anticipating needing lumbar surgery. she came in to the hospital with intractable vomiting. CT scan showed distal esophagitis and some colonic thickening which was interpreted as nonspecific colitis. The patient never has diarrhea. She has no hematochezia and no melena. Patient denies abdominal pain. [facility] Medical History Degenerative joint disease (DJD) of lumbar spine (Acute) Low back pain (Acute) Sciatica associated with disorder of lumbar spine (Acute) Paroxysmal atrial fibrillation (Acute) Surgical History History of cholecystectomy (Acute) History of colonoscopy (Acute) History of esophagogastroduodenoscopy (EGD) (Acute) History of local excision of skin lesion (Acute) Social History household members: family Smoking Status: Current every day smoker alcohol intake: current substance use type: does not use Social History household members: family Smoking Status: Current every day smoker alcohol intake: current substance use type: does not use Meds Home Medications Medication Instructions Recorded Confirmed Type calcium carbonate [Tums E-X] 2 tab PO PRN PRN #0 12/26/16 12/15/18 History carvedilol [Coreg] 6.25 mg PO BID #0 12/26/16 12/14/18 History hydroxyzine HCl 25 mg PO Q6H PRN #0 12/26/16 12/14/18 History hydrocodone-acetaminophen [[place]] 1 tab PO Q6H PRN #10 tab 10/13/18 12/14/18 Rx gabapentin 600 mg PO TID 12/14/18 12/14/18 History ketorolac 10 mg PO QID PRN 12/14/18 12/14/18 History methocarbamol 500 mg PO BEDTIME 12/14/18 12/14/18 History oxycodone 5 mg PO DAILY PRN 12/14/18 12/14/18 History ranitidine HCl 150 mg PO BID PRN 12/14/18 12/14/18 History tizanidine 4 mg PO BID 12/14/18 12/14/18 History Allergies Allergy/AdvReac Type Severity Reaction Status Date / Time No Known Allergies Allergy Uncoded 09/06/17 12:36 Exam Vital Signs (past 8 hours): - 12/15/18 07:55 12/15/18 08:26 12/15/18 09:00 Temperature 98 F Pulse Rate 102 H Respiratory Rate 18 Blood Pressure 156/87 H Pulse Oximetry 97 92 97 Oxygen Delivery Method Room Air Narrative Exam Narrative: Patient is alert and oriented. Abdominal exam reveals no tenderness. there is no distention. There are no masses. Objective Labs Result Diagrams: 12/15/18 04:50 12/15/18 04:50 Labs: Laboratory Results - last 24 hr 12/14/18 12/14/18 12/14/18 13:56 13:56 13:56 WBC 14.8 H RBC 4.17 Hgb 14.4 Hct 41.9 MCV 100.5 H MCH 34.5 H MCHC 34.3 RDW 13.5 Plt Count 260 Neut % (Auto) 84.8 H Lymph % (Auto) 10.4 L Parke % (Auto) 4.0 Eos % (Auto) 0.3 L Baso % (Auto) 0.5 Neut # (Auto) 36040 H Lymph # (Auto) 1500 Parke # (Auto) 600 Eos # (Auto) 0 Baso # (Auto) 100 PT 10.5 INR 0.9 APTT 26 L Sodium 138 Potassium 4.0 Chloride 95 L Carbon Dioxide 29 BUN 11 Creatinine 0.60 Estimated GFR > 60.0 BUN/Creatinine Ratio 18.3 Glucose 155 H Calcium 11.4 H Magnesium Total Bilirubin 1.2 AST 47 H ALT 39 Alkaline Phosphatase 80 Total Creatine Kinase CK-MB (CK-2) CK-MB (CK-2) Rel Index Troponin I Total Protein 8.5 H Albumin 5.1 H Globulin 3.4 Albumin/Globulin Ratio 1.5 Amylase Lipase 44 Procalcitonin Urine RBC Urine WBC Urine Bacteria Ur Culture Indicated? Urine Test Urine Opiates Screen Ur Oxycodone Screen Urine Methadone Screen Ur Barbiturates Screen U Tricyclic Antidepress Ur Phencyclidine Scrn Ur Amphetamines Screen U Methamphetamines Scrn Ur MDMA Scrn (Ecstasy) U Benzodiazepines Scrn Urine Cocaine Screen U Marijuana (THC) Screen 12/14/18 12/14/18 12/14/18 13:56 13:56 13:56 WBC RBC Hgb Hct MCV MCH MCHC RDW Plt Count Neut % (Auto) Lymph % (Auto) Parke % (Auto) Eos % (Auto) Baso % (Auto) Neut # (Auto) Lymph # (Auto) Parke # (Auto) Eos # (Auto) Baso # (Auto) PT INR APTT Sodium Potassium Chloride Carbon Dioxide BUN Creatinine Estimated GFR BUN/Creatinine Ratio Glucose Calcium Magnesium Total Bilirubin AST ALT Alkaline Phosphatase Total Creatine Kinase 80 CK-MB (CK-2) TNP CK-MB (CK-2) Rel Index TNP Troponin I < 0.012 Total Protein Albumin Globulin Albumin/Globulin Ratio Amylase 65 Lipase Procalcitonin < 0.05 Urine RBC Urine WBC Urine Bacteria Ur Culture Indicated? Urine Test Urine Opiates Screen Ur Oxycodone Screen Urine Methadone Screen Ur Barbiturates Screen U Tricyclic Antidepress Ur Phencyclidine Scrn Ur Amphetamines Screen U Methamphetamines Scrn Ur MDMA Scrn (Ecstasy) U Benzodiazepines Scrn Urine Cocaine Screen U Marijuana (THC) Screen 12/14/18 12/14/18 12/14/18 16:30 16:30 16:30 WBC RBC Hgb Hct MCV MCH MCHC RDW Plt Count Neut % (Auto) Lymph % (Auto) Parke % (Auto) Eos % (Auto) Baso % (Auto) Neut # (Auto) Lymph # (Auto) Parke # (Auto) Eos # (Auto) Baso # (Auto) PT INR APTT Sodium Potassium Chloride Carbon Dioxide BUN Creatinine Estimated GFR BUN/Creatinine Ratio Glucose Calcium Magnesium Total Bilirubin AST ALT Alkaline Phosphatase Total Creatine Kinase CK-MB (CK-2) CK-MB (CK-2) Rel Index Troponin I Total Protein Albumin Globulin Albumin/Globulin Ratio Amylase Lipase Procalcitonin Urine RBC 0-1/hpf Urine WBC None seen Urine Bacteria Few (2-10) H Ur Culture Indicated? Cult not indicated Urine Test Negative Urine Opiates Screen Negative Ur Oxycodone Screen Positive H Urine Methadone Screen Negative Ur Barbiturates Screen Negative U Tricyclic Antidepress Negative Ur Phencyclidine Scrn Negative Ur Amphetamines Screen Negative U Methamphetamines Scrn Negative Ur MDMA Scrn (Ecstasy) Negative U Benzodiazepines Scrn Negative Urine Cocaine Screen Negative U Marijuana (THC) Screen Positive H 12/14/18 12/15/18 12/15/18 23:03 04:50 04:50 WBC 10.2 RBC 3.79 L Hgb 13.2 Hct 38.5 MCV 101.5 H MCH 34.9 H MCHC 34.4 RDW 13.0 Plt Count 214 Neut % (Auto) 94.2 H Lymph % (Auto) 4.7 L Parke % (Auto) 1.0 L Eos % (Auto) 0.0 L Baso % (Auto) 0.1 Neut # (Auto) 9600 H Lymph # (Auto) 500 L Parke # (Auto) 100 Eos # (Auto) 0 Baso # (Auto) 0 PT INR APTT Sodium 134 L Potassium 3.8 Chloride 92 L Carbon Dioxide 27 BUN 10 Creatinine 0.50 L Estimated GFR > 60.0 BUN/Creatinine Ratio 20.0 Glucose 168 H Calcium 9.8 Magnesium 1.1 L Total Bilirubin AST ALT Alkaline Phosphatase Total Creatine Kinase CK-MB (CK-2) CK-MB (CK-2) Rel Index Troponin I Total Protein Albumin Globulin Albumin/Globulin Ratio Amylase Lipase Procalcitonin Urine RBC Urine WBC Urine Bacteria Ur Culture Indicated? Urine Test Urine Opiates Screen Ur Oxycodone Screen Urine Methadone Screen Ur Barbiturates Screen U Tricyclic Antidepress Ur Phencyclidine Scrn Ur Amphetamines Screen U Methamphetamines Scrn Ur MDMA Scrn (Ecstasy) U Benzodiazepines Scrn Urine Cocaine Screen U Marijuana (THC) Screen 12/15/18 12/15/18 04:50 04:50 WBC RBC Hgb Hct MCV MCH MCHC RDW Plt Count Neut % (Auto) Lymph % (Auto) Parke % (Auto) Eos % (Auto) Baso % (Auto) Neut # (Auto) Lymph # (Auto) Parke # (Auto) Eos # (Auto) Baso # (Auto) PT INR APTT Sodium Potassium Chloride Carbon Dioxide BUN Creatinine Estimated GFR BUN/Creatinine Ratio Glucose Calcium Magnesium 2.1 Total Bilirubin AST ALT Alkaline Phosphatase Total Creatine Kinase CK-MB (CK-2) CK-MB (CK-2) Rel Index Troponin I Total Protein Albumin Globulin Albumin/Globulin Ratio Amylase Lipase Procalcitonin < 0.05 Urine RBC Urine WBC Urine Bacteria Ur Culture Indicated? Urine Test Urine Opiates Screen Ur Oxycodone Screen Urine Methadone Screen Ur Barbiturates Screen U Tricyclic Antidepress Ur Phencyclidine Scrn Ur Amphetamines Screen U Methamphetamines Scrn Ur MDMA Scrn (Ecstasy) U Benzodiazepines Scrn Urine Cocaine Screen U Marijuana (THC) Screen Assessment & Plan Assessment & Plan narrative: I think the patient is suffering from reflux GERD and gastroparesis. These may be exacerbated by her medical regimen required for treatment of her low back pain. I have ordered a gastric emptying nuclear medicine study. started a regimen with Reglan , ranitidine, simethicone and she is already on a PPI., I do not think she needs endoscopy urgently. She has had upper and lower endoscopy in the past few years.
[2018-12-15] MEDS: METOCLOPRAMIDE 10 MG/2 ML INJ IV ×3 (12:43→23:48)
[2018-12-15] MEDS: SIMETHICONE 80 MG TABLET PO ×3 (12:44→21:23)
--- NOTE | 2018-12-15 13:45 | PM.PN.1 ---
Subjective Date Patient Seen: 12/15/18 Interval history: Maxwell Sibley is a 53-year-old female with a past medical history significant for pancreatitis, cyclical vomiting syndrome, lumbar degenerative joint disease with severe right-sided lumbar radiculopathy and paroxysmal atrial fibrillation who presented to the ED with nausea and vomiting due to cyclic vomiting syndrome flare. The patient is resting in bed comfortably and in no acute distress. She reports she feels significantly improved since admission. She has had no further vomiting. She reports that her cyclical vomiting syndrome occurs several times a year. She notices no trigger. She denies profound abdominal pain related to episodes. She has recently started marijuana edibles for her lumbar radiculopathy which have not helped much. Discussed cessation of marijuana as this can provoke cyclical vomiting syndrome. She endorses moderate alcohol use and drinks 3-4 mixed vodka drinks per day during happy hour almost every day (> 2oz of vodka per drink). She has history of previous episode of pancreatitis. Discussed differential and possibility of what is causing her cyclical vomiting syndrome including gastroparesis versus low-grade chronic pancreatitis. Recommend she cut back or stop consuming alcohol altogether. Also recommend she stop smoking and discussed smoking cessation in detail. She endorses mild dysphagia/sore throat due to retching. She has no other complaints and denies headache, cough, shortness of breath, chest pain, abdominal pain, nausea, vomiting, fever, chills, dysuria, or diarrhea. She does not currently endorse constipation but admits to intermittent constipation. She is voiding and eliminating without difficulty. She is up ambulating without assistance. Exam Vital Signs (past 8 hours): - 12/15/18 07:55 12/15/18 08:26 12/15/18 09:00 Temperature 98 F Pulse Rate 102 H Respiratory Rate 18 Blood Pressure 156/87 H Pulse Oximetry 97 92 97 Oxygen Delivery Method Room Air Narrative Exam Narrative: General: Middle-aged female sitting in bed and in no acute distress, well-developed, well-nourished, appropriately interactive. HEENT: Normocephalic, atraumatic. External ears without defect. Pupils equal, round, and reactive to light and accommodation. Anicteric sclerae, moist conjunctivae, and no lid lag. Oropharynx free of erythema and cobble stoning with moist mucosa. Neck: Supple with full range of motion. No jugular venous distension. No lymphadenopathy or thyromegaly. Cardiovascular: Regular rate and rhythm without murmurs, rubs, or gallops appreciated. Pulmonary: Clear to auscultation bilaterally without crackles, wheezes, or rhonchi. Normal respiratory effort with no use of accessory muscles. Abdomen: Soft, bowel sounds present, nontender, nondistended. No hepatosplenomegaly or masses appreciated. Extremities: No clubbing, cyanosis, or edema. Skin: Normal temperature, turgor, and texture; no rash, ulcers, or subcutaneous nodules appreciated. Neurological: Cranial nerves grossly intact. Psychiatric: Normal mood and affect. Alert and oriented to person, place, and time. Objective Labs Result Diagrams: 12/15/18 04:50 12/15/18 04:50 Labs: Laboratory Results - last 24 hr 12/14/18 12/14/18 12/14/18 13:56 13:56 13:56 WBC 14.8 H RBC 4.17 Hgb 14.4 Hct 41.9 MCV 100.5 H MCH 34.5 H MCHC 34.3 RDW 13.5 Plt Count 260 Neut % (Auto) 84.8 H Lymph % (Auto) 10.4 L [place] % (Auto) 4.0 Eos % (Auto) 0.3 L Baso % (Auto) 0.5 Neut # (Auto) 53266 H Lymph # (Auto) 1500 [place] # (Auto) 600 Eos # (Auto) 0 Baso # (Auto) 100 PT 10.5 INR 0.9 APTT 26 L Sodium 138 Potassium 4.0 Chloride 95 L Carbon Dioxide 29 BUN 11 Creatinine 0.60 Estimated GFR > 60.0 BUN/Creatinine Ratio 18.3 Glucose 155 H Calcium 11.4 H Magnesium Total Bilirubin 1.2 AST 47 H ALT 39 Alkaline Phosphatase 80 Total Creatine Kinase CK-MB (CK-2) CK-MB (CK-2) Rel Index Troponin I Total Protein 8.5 H Albumin 5.1 H Globulin 3.4 Albumin/Globulin Ratio 1.5 Amylase Lipase 44 Procalcitonin Urine RBC Urine WBC Urine Bacteria Ur Culture Indicated? Urine Test Urine Opiates Screen Ur Oxycodone Screen Urine Methadone Screen Ur Barbiturates Screen U Tricyclic Antidepress Ur Phencyclidine Scrn Ur Amphetamines Screen U Methamphetamines Scrn Ur MDMA Scrn (Ecstasy) U Benzodiazepines Scrn Urine Cocaine Screen U Marijuana (THC) Screen 12/14/18 12/14/18 12/14/18 13:56 13:56 13:56 WBC RBC Hgb Hct MCV MCH MCHC RDW Plt Count Neut % (Auto) Lymph % (Auto) [place] % (Auto) Eos % (Auto) Baso % (Auto) Neut # (Auto) Lymph # (Auto) [place] # (Auto) Eos # (Auto) Baso # (Auto) PT INR APTT Sodium Potassium Chloride Carbon Dioxide BUN Creatinine Estimated GFR BUN/Creatinine Ratio Glucose Calcium Magnesium Total Bilirubin AST ALT Alkaline Phosphatase Total Creatine Kinase 80 CK-MB (CK-2) TNP CK-MB (CK-2) Rel Index TNP Troponin I < 0.012 Total Protein Albumin Globulin Albumin/Globulin Ratio Amylase 65 Lipase Procalcitonin < 0.05 Urine RBC Urine WBC Urine Bacteria Ur Culture Indicated? Urine Test Urine Opiates Screen Ur Oxycodone Screen Urine Methadone Screen Ur Barbiturates Screen U Tricyclic Antidepress Ur Phencyclidine Scrn Ur Amphetamines Screen U Methamphetamines Scrn Ur MDMA Scrn (Ecstasy) U Benzodiazepines Scrn Urine Cocaine Screen U Marijuana (THC) Screen 12/14/18 12/14/18 12/14/18 16:30 16:30 16:30 WBC RBC Hgb Hct MCV MCH MCHC RDW Plt Count Neut % (Auto) Lymph % (Auto) [place] % (Auto) Eos % (Auto) Baso % (Auto) Neut # (Auto) Lymph # (Auto) [place] # (Auto) Eos # (Auto) Baso # (Auto) PT INR APTT Sodium Potassium Chloride Carbon Dioxide BUN Creatinine Estimated GFR BUN/Creatinine Ratio Glucose Calcium Magnesium Total Bilirubin AST ALT Alkaline Phosphatase Total Creatine Kinase CK-MB (CK-2) CK-MB (CK-2) Rel Index Troponin I Total Protein Albumin Globulin Albumin/Globulin Ratio Amylase Lipase Procalcitonin Urine RBC 0-1/hpf Urine WBC None seen Urine Bacteria Few (2-10) H Ur Culture Indicated? Cult not indicated Urine Test Negative Urine Opiates Screen Negative Ur Oxycodone Screen Positive H Urine Methadone Screen Negative Ur Barbiturates Screen Negative U Tricyclic Antidepress Negative Ur Phencyclidine Scrn Negative Ur Amphetamines Screen Negative U Methamphetamines Scrn Negative Ur MDMA Scrn (Ecstasy) Negative U Benzodiazepines Scrn Negative Urine Cocaine Screen Negative U Marijuana (THC) Screen Positive H 07/19/19 07/20/19 07/20/19 23:03 04:50 04:50 WBC 10.2 RBC 3.79 L Hgb 13.2 Hct 38.5 MCV 101.5 H MCH 34.9 H MCHC 34.4 RDW 13.0 Plt Count 214 Neut % (Auto) 94.2 H Lymph % (Auto) 4.7 L [place] % (Auto) 1.0 L Eos % (Auto) 0.0 L Baso % (Auto) 0.1 Neut # (Auto) 9600 H Lymph # (Auto) 500 L [place] # (Auto) 100 Eos # (Auto) 0 Baso # (Auto) 0 PT INR APTT Sodium 134 L Potassium 3.8 Chloride 92 L Carbon Dioxide 27 BUN 10 Creatinine 0.50 L Estimated GFR > 60.0 BUN/Creatinine Ratio 20.0 Glucose 168 H Calcium 9.8 Magnesium 1.1 L Total Bilirubin AST ALT Alkaline Phosphatase Total Creatine Kinase CK-MB (CK-2) CK-MB (CK-2) Rel Index Troponin I Total Protein Albumin Globulin Albumin/Globulin Ratio Amylase Lipase Procalcitonin Urine RBC Urine WBC Urine Bacteria Ur Culture Indicated? Urine Test Urine Opiates Screen Ur Oxycodone Screen Urine Methadone Screen Ur Barbiturates Screen U Tricyclic Antidepress Ur Phencyclidine Scrn Ur Amphetamines Screen U Methamphetamines Scrn Ur MDMA Scrn (Ecstasy) U Benzodiazepines Scrn Urine Cocaine Screen U Marijuana (THC) Screen 12/15/18 12/15/18 04:50 04:50 WBC RBC Hgb Hct MCV MCH MCHC RDW Plt Count Neut % (Auto) Lymph % (Auto) [place] % (Auto) Eos % (Auto) Baso % (Auto) Neut # (Auto) Lymph # (Auto) [place] # (Auto) Eos # (Auto) Baso # (Auto) PT INR APTT Sodium Potassium Chloride Carbon Dioxide BUN Creatinine Estimated GFR BUN/Creatinine Ratio Glucose Calcium Magnesium 2.1 Total Bilirubin AST ALT Alkaline Phosphatase Total Creatine Kinase CK-MB (CK-2) CK-MB (CK-2) Rel Index Troponin I Total Protein Albumin Globulin Albumin/Globulin Ratio Amylase Lipase Procalcitonin < 0.05 Urine RBC Urine WBC Urine Bacteria Ur Culture Indicated? Urine Test Urine Opiates Screen Ur Oxycodone Screen Urine Methadone Screen Ur Barbiturates Screen U Tricyclic Antidepress Ur Phencyclidine Scrn Ur Amphetamines Screen U Methamphetamines Scrn Ur MDMA Scrn (Ecstasy) U Benzodiazepines Scrn Urine Cocaine Screen U Marijuana (THC) Screen Assessment & Plan Assessment & Plan narrative: Maxwell Sibley is a 53-year-old female with a past medical history significant for pancreatitis, cyclical vomiting syndrome, lumbar degenerative joint disease with severe right-sided lumbar radiculopathy and paroxysmal atrial fibrillation who presented to the ED with nausea and vomiting due to cyclic vomiting syndrome flare. 1. Acute intractable nausea and vomiting, secondary to cyclic vomiting, present on admission. Resolving. -Patient presented with intractable nausea and vomiting with associated diaphoresis and tachycardia without abdominal pain. -Differential diagnosis includes: Gastroparesis (contributing factors include constipation, narcotic use (intermittently and sparingly), GERD, and heavy alcohol use) versus low-grade chronic pancreatitis as patient drinks 3-4 vodka drinks per day almost every day. -Longstanding history at least several years of cyclical vomiting syndrome that occurs every few months lasting for 24-28 hours duration. Current episode started approximately 20 hours prior to admission. -Received multiple medications in the ER without resolution of the nausea and vomiting. -Ordered H. pylori stool antigen and GI panel, pending. Lipase normal at 44. -Initially NPO for bowel rest and will slowly start to advance diet to full liquid and soft/bland diet as tolerated. -Continue normal saline at 100 mL/hr until taking in adequate PO intake. -Continue Ativan 0.5 mg every 4 hours, promethazine 12.5 mg every 6 hours or Zofran 8 mg every 8 hours as needed for nausea. Discontinue narcotic as they will contribute significantly to gastroparesis. -Continue ranitidine 150 mg twice daily and Protonix 40 mg daily for untreated GERD. -Consulted General surgery, Dr. Charles, due to CT findings of esophagitis, colitis, and enteritis. We appreciate his time and recommendations. Canceled gastric emptying study as not available on the weekends and will potentially be falsely positive as patient has received IV narcotics since admission. Patient is on narcotics at home but reports she uses very intermittently and sparingly. 2. Lumbar degenerative disc disease with right-sided lumbar radiculopathy, chronic, present on admission. Stable. -Patient with chronic right-sided leg pain related to her lumbar degenerative disease with radiculopathy. -Continued home pain regimen which includes: Oxycodone 5 mg daily as needed for pain (have not restarted), gabapentin 600 mg 3 times daily, methocarbamol 500 mg daily at bedtime and tizanidine 4 mg twice daily. -Discontinued Dilaudid 0.5 mg every 6 hours as needed for pain as patient reports she does not use narcotics often and only as a last resort. 3. Paroxysmal atrial fibrillation, chronic, present on admission. Stable. -Patient presented with palpitations related to cyclic nausea and vomiting. -Currently rate controlled with carvedilol 6.25 mg twice daily. Not on anticoagulation but is low risk based on CHADS2 score of 0. -Discontinued telemetry as patient has not been significantly tachycardic. -Continue to monitor electrolytes and replete if needed. Goal K+ > 4.0 and Mg + 2.0. 4. Tobacco dependence, chronic, present on admission. Stable. -Patient currently smokes 7-10 cigarettes per day. -Discussed smoking, risks associated and cessation in detail. Encouraged the patient to stop smoking. 5. Alcohol dependence, chronic, present on admission. Stable. -Patient currently drinks 3-4 mix vodka drinks per day (not standard size > 2 oz vodka). Denies any history of alcohol withdrawal, DTs or seizures. -Discussed alcohol use, risks associated and cessation in detail. Encourage the patient to stop drinking altogether cut back substantially. Disposition: Patient likely to discharge home in 1-2 days depending upon improvement in cyclical vomiting syndrome.
--- NOTE | 2018-12-15 13:46 | PC.NURSE ---
GI: Reports she is feeling better but still having lots of pain in abd and rt leg. Pt reports she has a bad back and she is scheduled for further follow up for same. Abd pain is present but the nausea she reports as being worse. MD made aware and he has ordered several different meds for her. After taking them she has felt a little better. Pt is very shaky on her feet due to her back, get a sciatic type pain down the right leg and rt leg will start shaking. Has had freq falls and it was discussed with her the use of bed alarm and she always needs to call for assisst, pt is in agreement w/plan. Cont w/poc.
--- NOTE | 2018-12-15 15:13 | CM.DANOTE ---
DCP: Case received, EMR reviewed and met with patient. Introduced self and role. Was able to obtain baseline health history from patient. DCP assessment completed with information currently available. Patient is a 53 year old female who admitted yesterday evening to the care of the hospitalist team. PCP: Dr. Meza. Payer: confirmed: [facility] Health Options/Medicaid. Patient came to the hospital via family vehicle secondary to nausea and vomiting. Patient has history of pancreatitis, as well as lumbar disc disease. She is a current everyday smoker, and uses Marijuana as well. She also consumes approximately 3-4 Vodka drinks per day. She currently holds diagnosis of cyclical vomiting syndrome. Met with patient in her room. Alert and oriented. She has been sitting up in her bed, complaining of discomfort due to her back. She stated that she lives with her mother in [facility]. Patient stated her mother helps her out when her back gives out. She also helps her mother out as well. Patient has a significant other named Michael, who does not live with her, but is supportive. Patient also stated that she used to be employed, but is no longer due to her history of back problems. She stated that she has had this vomiting for a while, and at times, has been hospitalized for this before. At this time, she is here receiving IV fluids, and electrolytes monitored. P: DCP to continue to follow. She may be here for another day or two. She should be able to return home when she is medically stable. Betty Becker RN/[employer]rentice
[2018-12-15 15:38] LABS: Hemoglobin A1C% w Est Avg Glu 4.9 % (4.0-6.0)
[2018-12-15] MEDS: METHOCARBAMOL 500 MG TABLET PO (21:23)
--- NOTE | 2018-12-15 22:02 | PC.NURSE ---
Pt admitted with intractable nausea and vomiting. Now reports nausea improved. On scheduled IV zofran. No emesis. Pt with hx DJD of lumbar spine and sciatica, winces from shooting pain in RLE with moves in bed, pain settles back down when pt rests again, no intervention for pain needed. Needs GO panel collected. Plan for gastric emptying nuclear study. Hx falls, bed alarm on. Reamins on NS at 150cc/hr. PRN ativan given x1.
[2018-12-16] VITALS: BP 118/56; PULSE 76; RESP 18; TEMP 36.6; O2SAT 97
[2018-12-16] MEDS: SODIUM CHLORIDE 0.9% 1,000 ML 100 ML IV (03:18)
[2018-12-16] MEDS: LORazepam 2 MG/ML INJ 0.5 MG IV ×3 (03:30→12:12)
[2018-12-16 03:41] VITALS: BP 136/87; PULSE 83; RESP 18; TEMP 36.6; O2SAT 95
--- NOTE | 2018-12-16 05:28 | PC.NURSE ---
Slept most of the shift. Did not C/O nausea all night, medicated with 0.5 mg. of Lorazepam IVP for Rt. LLE pain & spasms @ 0330. Will cont. POC & monitor.
[2018-12-16 05:45] LABS: Alanine Aminotransferase 29 IU/L (9-52); Albumin 3.4 g/dL (3.5-5.0); Albumin Globulin Ratio 1.3 (1.0-2.8); Alkaline Phosphatase 44 U/L (38-126); Aspartate Aminotransferase 47 IU/L (14-36); Bilirubin Total 0.5 mg/dL (0.2-1.3); Blood Urea Nitrogen 12 mg/dL (7-17); Calcium 8.6 mg/dL (8.4-10.2); Carbon Dioxide 30 mmol/L (22-32); Chloride 101 mmol/L (98-107); Estimated Glomerular Filt Rate > 60.0 mL/min (>60); Globulin 2.6 g/dL (1.7-4.1); Glucose 99 mg/dL (70-100); HEMOLYSIS < 15 (0-50); Magnesium 1.9 mg/dL (1.6-2.3); Potassium 3.3 mmol/L (3.4-5.1); Sodium 137 mmol/L (137-145)
[2018-12-16 05:46] LABS: Add Manual Diff / Slide Review NO; Basophils Absolute Auto 0 /uL (0-100); Basophils Percent Auto 0.2 % (0-2); Eosinophils Absolute Auto 0 /uL (0-450); Eosinophils Percent Auto 0.2 % (2-4); Hematocrit 31.4 % (36-46); Hemoglobin 11.1 g/dL (12.0-16.0); Lymphocytes Absolute Auto 2000 /uL (1100-4500); Lymphocytes Percent Auto 22.1 % (25-40); Mean Corpuscular HGB Conc 35.3 % (30-36); Mean Corpuscular Hemoglobin 35.9 PG (26-34); Mean Corpuscular Volume 101.8 fL (80-100); Monocytes Absolute Auto 600 /uL (0-900); Monocytes Percent Auto 7.1 % (3-14); Neutrophils Absolute Auto 6500 /uL (1500-7000); Neutrophils Percent Auto 70.4 % (50-75); Platelet Count 176 X10^3/uL (150-400); Red Blood Cell Count 3.08 X10^6/uL (4.0-5.2); White Blood Cell Count 9.2 X10^3/uL (4.5-11.0)
[2018-12-16] MEDS: METOCLOPRAMIDE 10 MG/2 ML INJ IV ×2 (05:49→12:12)
[2018-12-16 07:08] LABS: TSH w/ Reflex to FT4 4.71 uIU/mL (0.47-4.68)
[2018-12-16 07:59] LABS: Free T4, Direct Thyroxine 0.77 ng/dL (0.78-2.19)
[2018-12-16 08:00] VITALS: O2SAT 96
[2018-12-16 08:15] VITALS: BP 162/91; PULSE 86; RESP 16; TEMP 36.7; O2SAT 92
[2018-12-16] MEDS: TIZANIDINE 4 MG TABLET PO (08:23)
[2018-12-16] MEDS: CARVEDILOL 6.25 MG TABLET PO (08:23)
[2018-12-16] MEDS: PANTOPRAZOLE 40 MG VIAL IV (08:24)
[2018-12-16] MEDS: GABAPENTIN 600 MG TABLET PO ×2 (08:24→14:26)
[2018-12-16] MEDS: SIMETHICONE 80 MG TABLET PO ×2 (08:24→13:05)
[2018-12-16] MEDS: POTASSIUM CHLORIDE 60 MEQ in SODIUM CHLORIDE 0.9% 500 ML 88.333 ML IV (08:37)
[2018-12-16] MEDS: OXYCODONE IR 5 MG TABLET PO (10:10)
--- NOTE | 2018-12-16 10:48 | PM.DS.1 ---
History of Present Illness Date Patient Seen: 12/14/18 Chief complaint: possible pancreatitis Narrative: Written by Walter DORSEY: Ms. Naz Sibley is a 53-year-old female with a history significant for history pancreatitis, cyclic nausea and vomiting, lumbar degenerative joint disease, sciatica and paroxysmally atrial fibrillation who presents to the ER today with nausea vomiting. The patient reports starting to have nausea vomiting at 1:00 a.m. this morning and reports that she has had episodic nausea vomiting every few months lasting between 24-48 hours. She states typically she rides and out however her boyfriend coax her to present to the ER. The patient also has history of pancreatitis is concerned for the same period the patient has had associated symptoms of fevers and chills but denies diarrhea. Her emesis was initially bile and has now progressed to dry heaves. She reports no hematemesis and has had no abdominal pain with her last bowel movement today. She has used marijuana products to help with the nausea vomiting with no benefit. She has undergone workup with Gastroenterology with colonoscopy and EGD in 2014 with no significant findings. She denies recent illness and has no headaches, dizziness or nasal congestion. She has throat irritation related to vomiting. She denies chest pain but has a history of palpitations describes her heart is going crazy today. She denies shortness of breath cough or wheeze. She has abdominal wall pain from protracted vomiting but no tenderness on palpation and describes no changes in bowel habits, dysuria or hematuria. Upon arrival in the ER the patient is afebrile with a temperature 96.3?, hypertensive at 189/106, heart rate of 108, respirations of 18 and saturation at 97%. Patient underwent CT of the abdomen which finds esophageal wall thickening, hepatic steatosis, colonic wall thickening but no obstruction. She has a mildly elevated white count at 14.8, hemoglobin of 14.4 and a crit of 41.9 and platelets of 260. Her lipase and amylase are in normal, procalcitonin is negative, urinalysis is negative and urine is negative. Her electrolytes are within normal limits and has a BUN of 11 and creatinine of 0.6 and non fasting glucose 155. She has a mild elevation in her AST at 47 but the remainder of LFTs within normal limits. In the ER patient received promethazine 20 mg, Ativan 1 mg, Zofran 4 mg x3, Protonix 40 mg, methylprednisolone 125, Benadryl 25 mg Reglan 10 mg and 2 L of normal saline without relief, the patient is admitted for intractable nausea vomiting. Discharge Providers Date of admission: 12/14/18 21:06 Discharge Date: 12/16/18 Primary care physician: Cindy Meza MD Consults: 12/14/18 22:28 Consult to Dietitian, Adult Routine Comment: Reason For Exam: intractable nausea and vomiting 12/14/18 23:07 Consult to Discharge Planning Routine Comment: Consult to Physical Therapy Evaluate & Treat Comment: Lumbar DJD, Sciatica Physician Instructions: Evaluate and Treat 12/15/18 07:25 Consult to General Surgery Routine Comment: Consulting Provider: Cleveland Charles Reason for consultation: cyclic vomiting, diffuse colitis of colon, distal ileum, esophagus Has provider been notified: Yes Discharge provider: Jahaira Elena DO Summary Discharge Diagnosis: 1. Acute intractable nausea and vomiting, secondary to cyclic vomiting syndrome, present on admission. Resolved. 2. Chronic alcohol dependence with acute mild alcohol withdrawal, not present on admission. Active. 3. Lumbar degenerative disc disease with right-sided lumbar radiculopathy, chronic, present on admission. Stable. 4. Paroxysmal atrial fibrillation, chronic, present on admission. Stable. 5. Tobacco dependence, chronic, present on admission. Stable. Hospital Course: Maxwell Sibley is a 53-year-old female with a past medical history significant for pancreatitis, cyclical vomiting syndrome, lumbar degenerative joint disease with severe right-sided lumbar radiculopathy and paroxysmal atrial fibrillation who presented to the ED with nausea and vomiting due to cyclic vomiting syndrome flare. 1. Acute intractable nausea and vomiting, secondary to cyclic vomiting syndrome, present on admission. Resolved. -Patient presented with intractable nausea and vomiting with associated diaphoresis and tachycardia without abdominal pain. -Differential diagnosis includes: Gastroparesis (contributing factors include constipation, narcotic use (intermittently and sparingly), marajuana use, GERD, and heavy alcohol use) versus low-grade chronic pancreatitis as patient drinks 3-4 vodka drinks per day almost every day versus Alcohol withdrawal. -Longstanding history at least several years of cyclical vomiting syndrome that occurs every few months lasting for 24-28 hours duration. Current episode started approximately 20 hours prior to admission. -Received multiple medications in the ER without resolution of the nausea and vomiting. -Ordered GI panel but was canceled as patient was not having diarrhea. Ordered H. pylori stool antigen which unfortunately was uncollected when patient had BM. Lipase normal at 44. -Initially NPO for bowel rest and tolerated slow advancement of diet to soft/bland diet as tolerated. -Continued IV fluid hydration until adequately hydrated. -Continued Ativan 0.5 mg every 4 hours, promethazine 12.5 mg every 6 hours or Zofran 8 mg every 8 hours as needed for nausea. Limited narcotic use as they will contribute significantly to gastroparesis. -Continued ranitidine 150 mg twice daily for untreated GERD. -Consulted General surgery, Dr. Charles, due to CT findings of esophagitis, colitis, and enteritis. We appreciate his time and recommendations. Canceled gastric emptying study as not available on the weekends and will potentially be falsely positive as patient has received IV narcotics since admission. Patient is on narcotics at home but reports she uses these very intermittently and sparingly. 2. Chronic alcohol dependence with acute mild alcohol withdrawal, not present on admission. Active. -Patient currently drinks 3-4 mix vodka drinks per day (not standard size > 2 oz vodka). Denies any history of alcohol withdrawal, DTs or seizures. -Discussed alcohol use, risks associated and cessation in detail. Encouraged the patient to slowly cut back and titrate off indefinitely. Recommended she follow-up with her PCP to help with guidance/treatment for alcohol cessation. -Today prior to discharge the patient began to have mild symptoms of alcohol withdrawal including anxiety, agitation, and tremulousness. Discussed and educated the patient on alcohol withdrawal. Received several doses of Ativan 0.5 mg IV. She does not plan to stop drinking alcohol, therefore, she was discharged home with plans to continue alcohol use despite my best recommendations to remain in hospital for treatment of acute mild alcohol withdrawal and treatment thereafter. Discussed concurrent narcotic use and alcohol use for which the patient reports she does not mix the 2 substances. She reiterated understanding to not use narcotics if under the influence of alcohol. -Consulted [employer] LO[employer]ER who provided CD assessment and provided resources to help with cessation. 3. Lumbar degenerative disc disease with right-sided lumbar radiculopathy, chronic, present on admission. Stable. -Patient with chronic right-sided leg pain related to her lumbar degenerative disease with radiculopathy. -Continued home pain regimen which includes: Gabapentin 600 mg 3 times daily, methocarbamol 500 mg daily at bedtime, tizanidine 4 mg twice daily, and oxycodone 5 mg daily as needed for pain. Patient reports she is running out of her prescriptions and provided temporary prescriptions for gabapentin, methocarbamol and oxycodone (quantity #10). 4. Paroxysmal atrial fibrillation, chronic, present on admission. Stable. -Patient presented with palpitations related to cyclic nausea and vomiting. -Currently rate controlled with carvedilol 6.25 mg twice daily. Not on anticoagulation but is relatively low risk based on CHADS2 score of 0. -Discontinued telemetry as patient has not been significantly tachycardic. -Continued to monitor electrolytes and replete if needed. Goal K+ > 4.0 and Mg + 2.0. 5. Tobacco dependence, chronic, present on admission. Stable. -Patient currently smokes 7-10 cigarettes per day. -Discussed smoking, risks associated and cessation in detail. Encouraged the patient to stop smoking. Status at Discharge Functional status at discharge: uses cane/walker Overall status at discharge: patient is back to baseline Exam Vital Signs (past 8 hours): - 12/16/18 03:41 12/16/18 08:15 Temperature 97.9 F 98.0 F Pulse Rate 83 86 Respiratory Rate 18 16 Blood Pressure 136/87 162/91 H Pulse Oximetry 95 92 Oxygen Delivery Method Room Air Narrative Exam Narrative: General: Middle-aged female sitting in bed and in no acute distress, well-developed, well-nourished, anxious and tremulous likely indicative of mild alcohol withdrawal, otherwise appropriately interactive. HEENT: Normocephalic, atraumatic. External ears without defect. Pupils equal, round, and reactive to light and accommodation. Anicteric sclerae, moist conjunctivae, and no lid lag. Oropharynx free of erythema and cobble stoning with moist mucosa. Neck: Supple with full range of motion. No lymphadenopathy or thyromegaly. Cardiovascular: Regular rate and rhythm without murmurs, rubs, or gallops appreciated. Pulmonary: Clear to auscultation bilaterally without crackles, wheezes, or rhonchi. Normal respiratory effort with no use of accessory muscles. Abdomen: Soft, bowel sounds present, nontender, nondistended. No hepatosplenomegaly or masses appreciated. Extremities: No clubbing, cyanosis, or edema. Skin: Normal temperature, turgor, and texture; no rash, ulcers, or subcutaneous nodules appreciated. Neurological: Cranial nerves grossly intact. Psychiatric: Anxious and depressed mood with emotional lability, normal affect. Alert and oriented to person, place, and time. Objective Labs Result Diagrams: 12/16/18 04:42 12/16/18 04:42 Labs: Laboratory Results - last 24 hr 12/15/18 12/16/18 12/16/18 04:50 04:42 04:42 WBC 9.2 RBC 3.08 L Hgb 11.1 L Hct 31.4 L MCV 101.8 H MCH 35.9 H MCHC 35.3 RDW 13.0 Plt Count 176 Neut % (Auto) 70.4 D Lymph % (Auto) 22.1 L Navarro % (Auto) 7.1 Eos % (Auto) 0.2 L Baso % (Auto) 0.2 Neut # (Auto) 6500 Lymph # (Auto) 2000 Navarro # (Auto) 600 Eos # (Auto) 0 Baso # (Auto) 0 Sodium 137 Potassium 3.3 L Chloride 101 Carbon Dioxide 30 BUN 12 Creatinine 0.60 Estimated GFR > 60.0 BUN/Creatinine Ratio 20.0 Glucose 99 Hemoglobin A1c 4.9 Calcium 8.6 Magnesium 1.9 Total Bilirubin 0.5 AST 47 H ALT 29 Alkaline Phosphatase 44 Total Protein 6.0 L Albumin 3.4 L Globulin 2.6 Albumin/Globulin Ratio 1.3 TSH Free T4 12/16/18 04:42 WBC RBC Hgb Hct MCV MCH MCHC RDW Plt Count Neut % (Auto) Lymph % (Auto) Navarro % (Auto) Eos % (Auto) Baso % (Auto) Neut # (Auto) Lymph # (Auto) Navarro # (Auto) Eos # (Auto) Baso # (Auto) Sodium Potassium Chloride Carbon Dioxide BUN Creatinine Estimated GFR BUN/Creatinine Ratio Glucose Hemoglobin A1c Calcium Magnesium Total Bilirubin AST ALT Alkaline Phosphatase Total Protein Albumin Globulin Albumin/Globulin Ratio TSH 4.71 H Free T4 0.77 L Discharge Plan Discharge Plan Patient Disposition: Home Discharge comment: You are being discharged home. Please follow-up with your primary care physician, Dr. Meza, regarding your hospitalization and recommendation for gastric emptying study (off narcotics or on as minimal as possible) and referral to Gastroenterology for EGD and colonoscopy. You likely have gastroparesis or delayed emptying of the stomach. There are many causes of gastroparesis and for you it is likely secondary to chronic constipation, narcotic use, heavy alcohol use, marijuana use and untreated acid reflux or GERD (gastroesophageal reflux disease). Due to your heavy alcohol use, you may also be having low-grade chronic pancreatitis in which we would not see an elevation of your lipase. Please slowly cut back on alcohol use and slowly stop. Do NOT stop abruptly as you will likely experience alcohol withdraw, DT's, seizure and/or . You're showing symptoms of mild alcohol withdraw now. If you return home you should not stop drinking abruptly without the guidance of a physician or alcohol treatment center. Highly recommend cessation of smoking indefinitely as well. Discontinue marijuana use indefinitely as this will only potentially exacerbate cyclic vomiting syndrome and it does not seem to be helping you with pain control. You have been prescribed MiraLax 17 g daily dissolved in liquid and Colace 100 mg 1-2 times daily to treat constipation and keep your bowel habits regular. If you're having significant loose stools you may back off MiraLax to every other day or every 3 days. You were prescribed rantidine 150 mg twice daily to treat acid reflux and simethicone up to 4 times a day as needed for acid reflux/indigestion. In regard to pain management, you may continue gabapentin (prescription provided), methocarbamol at night (prescription provided), tizanidine 4 mg twice daily, and oxycodone once daily as needed (prescription provided). You may use ibuprofen or ketorolac but do not use together and make sure to take as directed on bottle and with your ranitidine to help protect your GI tract. You should not be using any of your pain medications concurrently with alcohol as this can slow or stop your breathing. Do not use these medicines while operating a vehicle. Discharge Med Rec/Prescriptions Prescriptions: New ranitidine HCl 150 mg Tablet 150 mg PO BID Qty: 60 RF: 0 simethicone 80 mg Tablet,Chewable 80 mg PO QID PRN (Reason: Acid Reflux) Qty: 120 RF: 0 oxycodone 5 mg tablet 5 mg PO DAILY PRN (Reason: Pain, Severe) Qty: 10 RF: 0 Continued carvedilol [Coreg] 6.25 MG tablet 6.25 mg PO BID Qty: 0 RF: 0 hydroxyzine HCl 25 MG tablet 25 mg PO Q6H PRN (Reason: as directed) Qty: 0 RF: 0 calcium carbonate [Tums E-X] 300 MG tablet,chewable 2 tab PO PRN PRN (Reason: Heartburn) Qty: 0 RF: 0 tizanidine 4 mg tablet 4 mg PO BID RF: 0 ketorolac 10 mg tablet 10 mg PO QID PRN (Reason: pain) RF: 0 ranitidine HCl 150 mg tablet 150 mg PO BID PRN (Reason: Indigestion) RF: 0 methocarbamol 500 mg tablet 500 mg PO BEDTIME Qty: 10 RF: 0 gabapentin 600 mg tablet 600 mg PO TID Qty: 90 RF: 0 Discontinued hydrocodone-acetaminophen [Kaycee] 5-325 mg tablet 1 tab PO Q6H PRN (Reason: pain) Qty: 10 RF: 0 Follow up/Referrals: Cindy Meza MD [Primary Care Provider] - 1 Week Provider Discharge Instructions Diet: Diet as Tolerated Diet comment: soft, bland Activity: Activity as tolerated with forward wheeled walker/cane Visit Report/Discharge Packet Instructions: Smoking Cessation Drugs: Nicotine Replacement Products, Delirium Tremens, Tripp Diet, Soft Diet, Smoking and Smoking Cessation in Relation to Mortality in Women, DI for Alcohol Abuse, DI for Drug or Alcohol Withdrawal, DI for Gastroparesis, How to Quit Smoking, Ibuprofen, DI for Cyclic Vomiting Syndrome-Child Discharge Data Primary Care Provider: Cindy Meza Attending Provider: Walter Goldstein [employer] Date/Time: 12/14/18 21:06
--- NOTE | 2018-12-16 11:10 | PC.NURSE ---
Addendum entered by Liseth Ovalle R.N. 12/16/18 15:40: DC - after k+ completed, iv dc'd, Dr. Elena in with addl discussion of etoh withdrawal, complications, risk with stopping alcohol and also risks with mult skelp processor medications, including the oxycodone and pt is to call on Monday for f/u treatment in the next 2-3 days. provided contact phone for the [facility] facility, belongings gathered, including clothing, bag, cell phone, tsf to and escorted to SO's car by inbound ingredient logistics specialist, instructions and scripts provided. Addendum entered by Liseth Ovalle R.N. 12/16/18 14:22: DC - reviewed dc instructions with pt, reviewed DrMargaret Notes and instructions regarding medications, alcohol withdrawal, pt not to abruptly stop alcohol to avoid DT, seizure, N/V, follow up, Karolina HURST in again to provide outpt f/u re etoh tmt. Addendum entered by Liseth Ovalle R.N. 12/16/18 12:18: ANXIETY/PAIN - restless at times, both and Karolina HURST in and pt tearful at times, ret to dangle position for lunch, given 0.5mg iv ativan. Original Note: AM NOTE - pt awoke anxious, moaning, tearful, tremulous, inbound ingredient logistics specialist assisted into br, ret to bed, asking for pain medication, describes back and rle discomfort 8 on scale 0/10, discussed with Dr. Elena, given muscle relaxant as scheduled and 0.5mg iv ativan, denies nausea and later after food, admin 5mg oxycodone, continues to have periodic bouts anxiety and tearfulness at times, discussed dc home later, K xiao started this am.
--- NOTE | 2018-12-16 14:31 | CM.SWNOTE ---
Social Work/ CD Assessment Note: Pt being DC home today. Met w/pt as Dr Elena was finishing her DC instructions and recommendations. This SEQU[employer] STRINGER explained SW role and listened as pt talked about recent life stressors to include losing her job d/t back pain/neuropathy in legs, losing her apt, and moving in with her mother; she is now physically and financially dependent on mom. Pt has struggled w/ abdominal pains and GI issues for a long time. Pt admits to drinking daily for happy hour. She drinks wine every night or every other night with her mom. Pt denies drinking during the day. If not with her mom, she meets her boyfriend or friends (most of whom work in bars) for happy hour at which time she drinks multiple mixed drinks. Pt says her new bf drinks some beer. Pt also admits to h/o cocaine use but stopped years ago. Pt states her current heavy alcohol use likely is attributed to an old relationship, 7 years ago, with a man that drank whenever he was off work, as did she. Pt tearful throughout the conversation and can not come up with any significant supports in her life right now. Pt admits to feeling overwhelmed by trying to coordinate outpt supports for herself; she admits to symptoms of severe depression. This SEQUINS STRINGER strongly encouraged pt to do two things, one: call [facility] customer service and request a referral be made for a child welfare caseworker, to assist in navigating outpt services (to include outpt MH/addiction support), two: show up at [facility] early Monday to talk with them about establishing for treatment and counseling. Pt denies the need for any additional resources, numbers, and says she has Dr Elena's recommendations and plans to follow them. Encouraged pt to consider taking baby steps in order to be successful, do not stop anything cold turkey, pt understands. Pt continues to ask RN Liseth every time she is in the room when her next pain medication might be ? P: DC home w/mom, bf to transport. Outpt resources offered. DAVID Trammell
--- NOTE | 2019-01-01 11:30 | PC.NURSE ---
Late entry Postassium chloride 60meq stopped at 1440 12/16
== END 2018-12-16 15:00 | disposition home or self-care (01) ==
LOC: ED 21:03 → AC 21:07
PROVIDERS: Emergency Medicine; Internal Medicine; Admitting Provider Nurse Practitioner Adult Health; Emergency Provider Nurse Practitioner Family; PCP Family Medicine; Visit Provider Nurse Practitioner Adult Health
DX: G43.A0 Cyclical vomiting, in migraine, not intractable (principal); R11.2 Nausea with vomiting, unspecified; R19.7 Diarrhea, unspecified; F17.210 Nicotine dependence, cigarettes, uncomplicated; E86.0 Dehydration; F10.239 Alcohol dependence with withdrawal, unspecified; F11.90 Opioid use, unspecified, uncomplicated; F12.90 Cannabis use, unspecified, uncomplicated; M51.16 Intervertebral disc disorders with radiculopathy, lumbar region; I48.0 Paroxysmal atrial fibrillation
CPT/HCPCS: 36415; 74177; 80048; 80053; 80305; 81003; 81015; 81025; 82150; 82550; 83036; 83690; 83735; 84145; 84439; 84443; 84484; 85025; 85610; 85730; 93005; 94760; 96365; 96367; 97116; 97161; 97530; 99225; 99283; 99406; G0378; C9113; J1170; J1200; J1885; J2060; J2270; J2405; J2765; J2930; J3480

== ENCOUNTER 2019-03-12 11:13 | Inpatient (IN) | payer OTHER, MEDICAID, SELFPAY ==
[2019-03-12 11:32] VITALS: BP 123/80; PULSE 91; RESP 18; TEMP 36.4; O2SAT 97
--- NOTE | 2019-03-12 11:53 | ED.NAVMDI ---
HPI - Nausea/Vomiting/Diarrhea General Chief complaint: Nausea/Vomiting/Diarrhea Stated complaint: vomiting x4 days/needs fluids Time Seen by Provider: 03/12/19 11:45 Source: patient Mode of arrival: Ambulatory Limitations: no limitations History of Present Illness HPI Narrative: Patient is a 54-year-old female has been seen in the emergency department in the past for which she describes as ?cyclic vomiting syndrome ?she has needed admitted to the hospital in the past secondary to this due to intractable vomiting. States that over the last 24 hours she has had return of her vomiting symptoms. States she has waves where she becomes very nauseous and vomits and then. Time where she has little symptoms. She is also complaining of bilateral upper abdomen pain. She also states that her ?esophagus is burning ?she states that she has also had some coffee-ground emesis and some dark-colored stools recently. No bright red blood. She does admit to a increase in alcohol use recently. She has had her gallbladder removed. Not on blood thinners. Related Data Home Medications Medication Instructions Recorded Confirmed carvedilol [Coreg] 6.25 mg PO BID #0 12/26/16 03/12/19 hydroxyzine HCl 25 mg PO Q6H PRN #0 12/26/16 03/12/19 ketorolac 10 mg PO QID PRN 12/14/18 03/12/19 methocarbamol 500 mg PO BEDTIME PRN 03/12/19 03/12/19 omeprazole 20 mg PO DAILY 03/12/19 03/12/19 Previous Rx's Medication Instructions Recorded gabapentin 600 mg PO TID #90 tab 12/16/18 ranitidine HCl 150 mg PO BID #60 tab 12/16/18 simethicone 80 mg PO QID PRN #120 tab 12/16/18 Allergies Allergy/AdvReac Type Severity Reaction Status Date / Time No Known Drug Allergies Allergy Verified 03/12/19 11:35 Review of Systems Constitutional Constitutional: Denies chills, Denies fever(s), Denies lethargy, Denies snoring and Denies weakness Cardiovascular Cardiovascular: Denies chest pain Respiratory Respiratory: Denies snoring Gastrointestinal Gastrointestinal: Reports abdominal pain, Reports melena, Reports heartburn, Reports nausea and Reports vomiting Genitourinary Genitourinary: Denies dysuria and Denies flank pain Musculoskeletal Musculoskeletal: Denies myalgias and Denies arthralgias Integumentary/Breasts Skin/Breast: Denies lesions and Denies rash Neurologic Neurologic: Denies abnormal speech, Denies behavioral changes and Denies weakness Psychiatric Psychiatric: Denies behavioral changes Hematologic/Lymphatic Hematologic/Lymphatic: Denies easy bleeding and Denies easy bruising Patient History Medical History Degenerative joint disease (DJD) of lumbar spine (Acute) Low back pain (Acute) Paroxysmal atrial fibrillation (Acute) Sciatica associated with disorder of lumbar spine (Acute) Surgical History History of cholecystectomy (Acute) History of colonoscopy (Acute) History of esophagogastroduodenoscopy (EGD) (Acute) History of local excision of skin lesion (Acute) Social History household members: family Smoking Status: Current every day smoker alcohol intake: current substance use type: does not use Family History (Updated 03/12/19 @ 17:12 by Leola Lance MD) Father COPD (chronic obstructive pulmonary disease) Social History household members: family Smoking Status: Current every day smoker alcohol intake: current substance use type: does not use alcohol intake frequency: 3 or more drinks per day Substance Use Type: marijuana Exam Initial Vital Signs Initial Vital Signs: Vital Signs Temperature 97.6 F 03/12/19 11:32 Pulse Rate 91 H 03/12/19 11:32 Respiratory Rate 18 03/12/19 11:32 Blood Pressure 123/80 03/12/19 11:32 Pulse Oximetry 97 03/12/19 11:32 Const General: cooperative, comfortable and well developed Orientation: alert, awake and oriented x3 HENMT Head: normal to inspection and normocephalic Resp Effort & Inspection: normal respiratory effort Auscultation: clear to auscultation bilaterally Cardio Rate: regular rate Rhythm: regular rhythm Pulses: radial pulses present GI Inspection: non-distended Palpation: soft, No firm and tender (Bilateral upper abdomen pain) Back/Spine/Pelvis Back: No CVA tenderness Skin Lesions: no lesions Rashes: no rashes Neuro General: alert and awake Cognition: normal cognition Speech: speech normal Extrem General: normal to inspection and capillary refill normal Psych Appearance: grossly normal and well kempt Scores GCS Ayesha coma scale eye opening: Spontaneous Ayesha coma scale verbal response: Orientated Ayesha coma scale motor response: Obey commands Ayesha coma scale total score: 15 Course Orders Ordered: ED Orders 03/12/19 11:40 Complete Blood Count AUTO DIFF Stat Comprehensive Metabolic Panel Stat Lipase Stat Type and Screen Stat 03/12/19 11:54 XR chest 1V Stat Bisacodyl (Dulcolax) 10 mg VA DAILY PRN PRN Reason: Constipation Clonidine HCl (Catapres) 0.1 mg PO Q4HR PRN PRN Reason: Alcohol Withdrawal Docusate Sodium (Colace) 100 mg PO BID JAZ Enoxaparin Sodium (Lovenox) 40 mg SUBCUT DAILY JAZ Folic Acid (Folic Acid) 1 mg PO DAILY JAZ Lactated Ringer's (Lactated Ringers) 1,000 mls @ 150 mls/hr IV CONT JAZ Last Admin: 03/12/19 18:38 Dose: Not Given Documented by: CGRESS Magnesium Sulfate 2 gm/ Folic Acid 1 mg/ Thiamine HCl 100 mg / Multivitamins 10 ml/ Sodium Chloride 1,015.2 mls @ 125 mls/hr IV NOW ONE Stop: 03/13/19 01:27 Last Admin: 03/12/19 17:45 Dose: 125 mls/hr Documented by: CGRESS Lorazepam (Ativan) 1 mg IV Q4HR PRN PRN Reason: Anxiety Lorazepam (Ativan) 0 mg IV CIWAPRN PRN; Protocol PRN Reason: Alcohol Withdrawal Multivitamins (Tab-A-Camila) 1 tab PO DAILY COUNT INCLUDES THE [facility] Non-Formulary Medication (Patient's Own Medication) 0 each PO PRN PRN PRN Reason: HOME MEDICATION STOREAGE Ondansetron HCl (Zofran) 4 mg IV Q8HR PRN PRN Reason: Nausea And Vomiting Pantoprazole Sodium (Protonix) 40 mg IV DAILY COUNT INCLUDES THE [facility] Promethazine HCl (Phenadoz) 12.5 mg VA Q6HR PRN PRN Reason: Nausea And Vomiting Sennosides (Senna) 17.2 mg PO BEDTIME COUNT INCLUDES THE [facility] Thiamine HCl (Vitamin B-1) 100 mg PO DAILY COUNT INCLUDES THE [facility] Stop: 03/16/19 09:01 Discontinued Medications Al Hydrox/Mg Hydrox/Simethicone 20 ml/ Lidocaine HCl 15 ml 0 ml PO NOW ONE Stop: 03/12/19 12:38 Last Admin: 03/12/19 12:43 Dose: 15 ml Documented by: CLIFFORDAPO Dextrose (D50w) 25 gm IV NOW ONE Stop: 03/12/19 17:22 Last Admin: 03/12/19 17:42 Dose: Not Given Documented by: CGRESS Haloperidol (Haldol) 5 mg IV NOW ONE Stop: 03/12/19 17:22 Last Admin: 03/12/19 17:55 Dose: Not Given Documented by: CGRESS Sodium Chloride (Normal Saline 0.9%) 1,000 mls @ 1,000 mls/hr IV BOLUS ONE Stop: 03/12/19 12:52 Last Infusion: 03/12/19 13:41 Dose: 0 mls/hr Documented by: Admin: 03/12/19 12:15 Dose: 1,000 mls/hr Documented by: SCANAPO Sodium Chloride (Normal Saline 0.9%) 1,000 mls @ 150 mls/hr IV CONT JAZ Last Infusion: 03/12/19 15:47 Dose: 0 mls/hr Documented by: Admin: 03/12/19 13:49 Dose: 150 mls/hr Documented by: LEIGH ANNO Thiamine HCl 100 mg/ Dextrose 51 mls @ 204 mls/hr IV NOW ONE Stop: 03/12/19 17:22 Last Admin: 03/12/19 17:45 Dose: 204 mls/hr Documented by: JENNIFERRESS Lorazepam (Ativan) 1 mg IV NOW ONE Stop: 03/12/19 11:54 Last Admin: 03/12/19 12:15 Dose: 1 mg Documented by: SCANAPO Lorazepam (Ativan) 1 mg IV NOW ONE Stop: 03/12/19 15:15 Last Admin: 03/12/19 15:23 Dose: 1 mg Documented by: SCANAPO Lorazepam (Ativan) 1 mg IM NOW ONE Stop: 03/12/19 17:22 Last Admin: 03/12/19 17:40 Dose: Not Given Documented by: CGRESS Lorazepam (Ativan) 1.3 mg 0.02 mg/kg (1.3 mg) IV NOW ONE; Protocol Stop: 03/12/19 17:25 Last Admin: 03/12/19 17:45 Dose: 1.3 mg Documented by: CESAR Ondansetron HCl (Zofran) 4 mg IV NOW ONE Stop: 03/12/19 11:54 Last Admin: 03/12/19 12:15 Dose: 4 mg Documented by: SCANAPO Pantoprazole Sodium (Protonix) 40 mg IV NOW ONE Stop: 03/12/19 11:54 Last Admin: 03/12/19 12:09 Dose: Not Given Documented by: SCANAPO Pantoprazole Sodium (Protonix) 40 mg IV NOW ONE Stop: 03/12/19 12:10 Last Admin: 03/12/19 12:15 Dose: 40 mg Documented by: SCANAPO Vital Signs Vital signs: Vital Signs - 8 hr 03/12/19 11:32 Temperature 97.6 F Pulse Rate 91 H Respiratory Rate 18 Blood Pressure 123/80 Pulse Oximetry 97 MDM - Nausea/Vomiting/Diarrhea Medical Records Attestation: I reviewed the patient's medical records. Lab Data Attestation: I reviewed the patient's lab results. Result diagrams: 03/12/19 17:43 03/12/19 17:43 Labs: Lab Results 03/12/19 03/12/19 03/12/19 Range/Units 11:40 11:40 11:40 WBC 9.5 (4.5-11.0) X10^3/uL RBC 3.80 L (4.0-5.2) X10^6/uL Hgb 13.5 (12.0-16.0) g/dL Hct 38.4 (36-46) % MCV 100.8 H (80-100) fL MCH 35.5 H (26-34) PG MCHC 35.2 (30-36) % RDW 13.7 (11.6-14.8) % Plt Count 271 (150-400) X10^3/uL Neut % (Auto) 76.3 H (50-75) % Lymph % (Auto) 14.0 L (25-40) % Linn % (Auto) 9.0 (3-14) % Eos % (Auto) 0.3 L (2-4) % Baso % (Auto) 0.4 (0-2) % Neut # (Auto) 7300 H (4813-7715) /uL Lymph # (Auto) 1300 (2871-9110) /uL Linn # (Auto) 900 (0-900) /uL Eos # (Auto) 0 (0-450) /uL Baso # (Auto) 0 (0-100) /uL Sodium 132 L (137-145) mmol/L Potassium 3.4 (3.4-5.1) mmol/L Chloride 88 L (98-107) mmol/L Carbon Dioxide 27 (22-32) mmol/L BUN 44 H (7-17) mg/dL Creatinine 1.20 H (0.52-1.04) mg/dL Estimated GFR 46.6 L (>60) mL/min BUN/Creatinine Ratio 36.7 H (6-22) Glucose 137 H (70-100) mg/dL Calcium 10.7 H (8.4-10.2) mg/dL Total Bilirubin 1.0 (0.2-1.3) mg/dL AST 67 H (14-36) IU/L ALT 31 (9-52) IU/L Alkaline Phosphatase 62 (38-126) U/L Total Protein 8.3 H (6.3-8.2) g/dL Albumin 4.9 (3.5-5.0) g/dL Globulin 3.4 (1.7-4.1) g/dL Albumin/Globulin Ratio 1.4 (1.0-2.8) Lipase 3154 H (23-300) U/L Blood Type Antibody Screen 03/12/19 Range/Units 11:40 WBC (4.5-11.0) X10^3/uL RBC (4.0-5.2) X10^6/uL Hgb (12.0-16.0) g/dL Hct (36-46) % MCV (80-100) fL MCH (26-34) PG MCHC (30-36) % RDW (11.6-14.8) % Plt Count (150-400) X10^3/uL Neut % (Auto) (50-75) % Lymph % (Auto) (25-40) % Linn % (Auto) (3-14) % Eos % (Auto) (2-4) % Baso % (Auto) (0-2) % Neut # (Auto) (7779-2718) /uL Lymph # (Auto) (7101-1129) /uL Linn # (Auto) (0-900) /uL Eos # (Auto) (0-450) /uL Baso # (Auto) (0-100) /uL Sodium (137-145) mmol/L Potassium (3.4-5.1) mmol/L Chloride (98-107) mmol/L Carbon Dioxide (22-32) mmol/L BUN (7-17) mg/dL Creatinine (0.52-1.04) mg/dL Estimated GFR (>60) mL/min BUN/Creatinine Ratio (6-22) Glucose (70-100) mg/dL Calcium (8.4-10.2) mg/dL Total Bilirubin (0.2-1.3) mg/dL AST (14-36) IU/L ALT (9-52) IU/L Alkaline Phosphatase (38-126) U/L Total Protein (6.3-8.2) g/dL Albumin (3.5-5.0) g/dL Globulin (1.7-4.1) g/dL Albumin/Globulin Ratio (1.0-2.8) Lipase (23-300) U/L Blood Type A Positive Antibody Screen Negative Imaging Data Chest x-ray: Radiologist's impression: [place] [address] XRay Report Signed Patient: Maxwell Sibley [facility]#: [id number] : 1965Acct:[id number] Age/Sex: 54 / FDate of Service: 03/12/19 Loc: ED Accession Number: [id number] Procedure: XR chest 1V Ordering Provider: Xavi Olivarez D.O. PROCEDURE: XR CHEST 1V INDICATIONS: Vomiting eval for free air TECHNIQUE: One view of the chest was acquired. COMPARISON: None. FINDINGS: Surgical changes and devices: None. Lungs and pleura: Lungs are clear. No pleural effusions or pneumothorax. Mediastinum: Mediastinal contours appear normal. Heart size is normal. Bones and chest wall: No suspicious bony lesions. Overlying soft tissues appear unremarkable. IMPRESSION: Normal for age. No free air found. Dictated by: Triston Schroeder M.D. on 03/12/2019 at 13:01 Approved by: Triston Schroeder M.D. on 03/12/2019 at 13:01 [facility] Narrative Medical decision making narrative: Patient has had an issue with cyclic vomiting syndrome in the past. I have not read anywhere specifically that this was related to THC however there has been reported THC use in the past. She has also expressed a increase in drinking recently. She does state that she drinks every day. She has never had a history of pancreatitis however her lipase is elevated today. Unsure whether not her nausea vomiting is related to the pancreatitis versus her cyclic vomiting or both. She was given fluids. She was informed here in the emergency department that she would not receive any opioid pain medications however we could try to treat her discomfort in other ways. She was given a GI cocktail for her reported heartburn. Chest x-ray shows no signs of free air into the diaphragm. She has had her gallbladder removed. I do suspect the pancreatitis is related to her alcohol use. No indication for blood transfusion. I did discuss case with Dr. Lance with the hospitalist service who will accept for further evaluation and treatment. Discussed the diagnosis the admission with the patient. She expressed understanding and agreement with plan. Discharge Plan Departure Patient Disposition: Admitted As Inpatient Clinical Impression: Cyclic vomiting syndrome, Alcohol abuse, Acute kidney injury Acute pancreatitis Qualifiers: Pancreatitis type: unspecified pancreatitis type Acute pancreatitis complication: unspecified Qualified Code(s): K85.90 - Acute pancreatitis without necrosis or infection, unspecified Discharge Date/Time: 03/12/19 16:16 Admit Date/Time: 03/12/19 13:53 Admit Provider: Leola Lance
[2019-03-12 12:01] LABS: Add Manual Diff / Slide Review NO; Basophils Absolute Auto 0 /uL (0-100); Basophils Percent Auto 0.4 % (0-2); Eosinophils Absolute Auto 0 /uL (0-450); Eosinophils Percent Auto 0.3 % (2-4); Hematocrit 38.4 % (36-46); Hemoglobin 13.5 g/dL (12.0-16.0); Lymphocytes Absolute Auto 1300 /uL (1100-4500); Mean Corpuscular HGB Conc 35.2 % (30-36); Mean Corpuscular Hemoglobin 35.5 PG (26-34); Mean Corpuscular Volume 100.8 fL (80-100); Monocytes Absolute Auto 900 /uL (0-900); Neutrophils Absolute Auto 7300 /uL (1500-7000); Neutrophils Percent Auto 76.3 % (50-75); Platelet Count 271 X10^3/uL (150-400); Red Cell Distribution Width 13.7 % (11.6-14.8); White Blood Cell Count 9.5 X10^3/uL (4.5-11.0)
[2019-03-12 12:13] LABS: Alanine Aminotransferase 31 IU/L (9-52); Albumin 4.9 g/dL (3.5-5.0); Albumin Globulin Ratio 1.4 (1.0-2.8); Alkaline Phosphatase 62 U/L (38-126); Aspartate Aminotransferase 67 IU/L (14-36); BUN Creatinine Ratio 36.7 (6-22); Blood Urea Nitrogen 44 mg/dL (7-17); Calcium 10.7 mg/dL (8.4-10.2); Carbon Dioxide 27 mmol/L (22-32); Chloride 88 mmol/L (98-107); Estimated Glomerular Filt Rate 46.6 mL/min (>60); Globulin 3.4 g/dL (1.7-4.1); Glucose 137 mg/dL (70-100); HEMOLYSIS 38 (0-50); Potassium 3.4 mmol/L (3.4-5.1); Sodium 132 mmol/L (137-145); Total Protein 8.3 g/dL (6.3-8.2)
[2019-03-12] MEDS: LORazepam 2 MG/ML INJ 1 MG IV ×2 (12:15→15:23)
[2019-03-12] MEDS: ONDANSETRON 4 MG/2 ML INJ IV (12:15)
[2019-03-12] MEDS: PANTOPRAZOLE 40 MG VIAL IV (12:15)
[2019-03-12] MEDS: SODIUM CHLORIDE 0.9% 1,000 ML 1000 ML IV (12:15)
[2019-03-12 12:23] LABS: Lipase 3154 U/L (23-300)
[2019-03-12] MEDS: MAG HYDROX/ALUMINUM/SIMETH SUS 20 ML, LIDOCAINE VISCOUS 2% 15 ML PO (12:43)
[2019-03-12] MEDS: SODIUM CHLORIDE 0.9% 1,000 ML 150 ML IV (13:49)
--- NOTE | 2019-03-12 13:56 | PC.NURSE ---
pt c/o cyclic vomiting states symptoms started on monday. vomiting. has some right upper abd pain. c/o pain when she tries to sit up.
[2019-03-12 13:58] VITALS: BP 111/76; PULSE 82; RESP 20; O2SAT 99
[2019-03-12 16:06] VITALS: BMI 23.3
[2019-03-12 16:13] VITALS: BP 143/61; PULSE 93; RESP 18; TEMP 36.1; O2SAT 95
--- NOTE | 2019-03-12 16:28 | PC.NURSE ---
1600 - Patient admitted to room 103. Brought over from ED in wheelchair by nursing staff. Able to walk self to bed with standby assist. Alert and oriented. Able to move all extremities. Oriented to room and call light. Call medina within reach.
--- NOTE | 2019-03-12 17:06 | P.HP_ITS ---
History of Present Illness History of Present Illness Date Patient Seen: 03/12/19 Chief complaint: vomiting x4 days/needs fluids Narrative: The patient is a 54-year-old female with a history of pancreatitis, chronic cyclic vomiting, gastroparesis, esophagitis, lumbar DJD, sciatica, paroxysmal atrial fibrillation who was in her usual state of health until Monday 4 days prior to admission. Patient states she developed vomiting which she describes as repetitive that starts with hip cups then continue S dry heaving with minimal bilis vomiting. This continued throughout the night Monday and into the day Monday. She states she has been unable to eat because she has been unable to keep anything down. Because of the persistent nausea and vomiting she presented to the emergency room for evaluation. Patient reports some abdominal pain which she attributes to her retching. She has some pain in her upper shoulders from vomiting as well. She describes vomiting up dark coffee-ground emesis which was ?stringy in character. She also reports some dark black stool. Patient took some ibuprofen earlier this morning with food. She does report intermittently using ibuprofen. In addition she describes her drinking as increasing. She drinks at least 4 vodkas per day plus wine. She continues to smoke 7 cigarettes per day but is interested in quitting. She declines a nicotine patch during the hospital stay. The patient was seen and evaluated in the emergency department. Her lipase was elevated at 3100. She was given anti emetic medication for her nausea and admitted to the hospital for acute pancreatitis. The patient has had no fever chills. She reports but of 7 lb weight loss over the past week. She has no dysuria hematuria or pyuria. She denies any headache blurred vision double vision. She has no shortness of breath or chest pain. However she does report some chest discomfort from her vomiting. Patient does report history of DTs when withdrawing from alcohol. She has had hallucinations shakes and palpitations previously. Patient History Medical History Degenerative joint disease (DJD) of lumbar spine (Acute) Low back pain (Acute) Paroxysmal atrial fibrillation (Acute) Sciatica associated with disorder of lumbar spine (Acute) Surgical History History of cholecystectomy (Acute) History of colonoscopy (Acute) History of esophagogastroduodenoscopy (EGD) (Acute) History of local excision of skin lesion (Acute) Social History household members: family Smoking Status: Current every day smoker alcohol intake: current substance use type: does not use Family & Social History Family History (Updated 03/12/19 @ 17:12 by Leola Lance MD) Father COPD (chronic obstructive pulmonary disease) Social History: household members family Safety & Behavioral: Feels Safe in Current Yes Environment Been Physically Hurt or No Threatened By a Person Suicidal Ideation Description None Suicide Plan Description No Plan Tobacco & Substance use: Tobacco type cigarettes Smoking Status Current every day smoker alcohol intake current alcohol intake frequency 3 or more drinks per day Substance Use Type marijuana Meds Home Medications and Allergies Home Medications Medication Instructions Recorded Confirmed Type carvedilol [Coreg] 6.25 mg PO BID #0 12/26/16 03/12/19 History hydroxyzine HCl 25 mg PO Q6H PRN #0 12/26/16 03/12/19 History ketorolac 10 mg PO QID PRN 12/14/18 03/12/19 History gabapentin 600 mg PO TID #90 tab 12/16/18 03/12/19 Rx ranitidine HCl 150 mg PO BID #60 tab 12/16/18 03/12/19 Rx simethicone 80 mg PO QID PRN #120 tab 12/16/18 03/12/19 Rx methocarbamol 500 mg PO BEDTIME PRN 03/12/19 03/12/19 History omeprazole 20 mg PO DAILY 03/12/19 03/12/19 History Allergies Allergy/AdvReac Type Severity Reaction Status Date / Time No Known Drug Allergies Allergy Verified 03/12/19 11:35 Review of Systems Review of Systems ROS Unobtainable: All systems reviewed & are unremarkable except as noted in HPI and below Exam Vital Signs (past 8 hours): - 03/12/19 11:32 03/12/19 13:58 03/12/19 16:13 Temperature 97.6 F 97.0 F L Pulse Rate 91 H 82 93 H Respiratory Rate 18 20 18 Blood Pressure 123/80 143/61 H Blood Pressure [Right Arm] 111/76 Pulse Oximetry 97 99 95 Oxygen Delivery Method Room Air Oxygen Flow Rate 0 Narrative Exam Narrative: Pleasant ill-appearing female lying in bed with occasional retching HEENT: Normocephalic atraumatic, extraocular muscles are intact, oropharynx reveals moist mucous membranes, neck is supple, there is no adenopathy thyromegaly Lungs: Clear to auscultation Cardiac exam: Regular rate and rhythm normal S1-S2 with a 2/6 systolic ejection murmur Abdomen: Soft, diffusely tender, no board-like rigidity, no rebound tenderness no palpable masses, normoactive bowel tones, Extremities: No edema Neuro exam: Nonfocal Skin exam: No lesion Psychiatric exam: Patient is awake alert and oriented, answers questions appropriately she is not hallucinating she has no active delusions. Objective Labs Result Diagrams: 03/12/19 11:40 03/12/19 11:40 Labs: Laboratory Results - last 24 hr 03/12/19 03/12/19 03/12/19 11:40 11:40 11:40 WBC 9.5 RBC 3.80 L Hgb 13.5 Hct 38.4 MCV 100.8 H MCH 35.5 H MCHC 35.2 RDW 13.7 Plt Count 271 Neut % (Auto) 76.3 H Lymph % (Auto) 14.0 L Rankin % (Auto) 9.0 Eos % (Auto) 0.3 L Baso % (Auto) 0.4 Neut # (Auto) 7300 H Lymph # (Auto) 1300 Rankin # (Auto) 900 Eos # (Auto) 0 Baso # (Auto) 0 Sodium 132 L Potassium 3.4 Chloride 88 L Carbon Dioxide 27 BUN 44 H Creatinine 1.20 H Estimated GFR 46.6 L BUN/Creatinine Ratio 36.7 H Glucose 137 H Calcium 10.7 H Total Bilirubin 1.0 AST 67 H ALT 31 Alkaline Phosphatase 62 Total Protein 8.3 H Albumin 4.9 Globulin 3.4 Albumin/Globulin Ratio 1.4 Lipase 3154 H Blood Type Antibody Screen 03/12/19 11:40 WBC RBC Hgb Hct MCV MCH MCHC RDW Plt Count Neut % (Auto) Lymph % (Auto) Rankin % (Auto) Eos % (Auto) Baso % (Auto) Neut # (Auto) Lymph # (Auto) Rankin # (Auto) Eos # (Auto) Baso # (Auto) Sodium Potassium Chloride Carbon Dioxide BUN Creatinine Estimated GFR BUN/Creatinine Ratio Glucose Calcium Total Bilirubin AST ALT Alkaline Phosphatase Total Protein Albumin Globulin Albumin/Globulin Ratio Lipase Blood Type A Positive Antibody Screen Negative Assessment & Plan Assessment & Plan narrative: Impression 1. 54-year-old female admitted to the hospital for acute pancreatitis. Patient's risk factors include excessive alcohol use. She previously had a cholecystectomy. Given the patient's significant alcohol use suspect this is the etiology of her pancreatitis. While the patient is convinced she presented with cyclic vomiting it and all likely feel it was pancreatitis precipitating her current admission. Her lipase is elevated at 3100. Patient continues to have persistent vomiting, and some abdominal pain. At this time will keep the patient NPO, continue IV fluids, avoid narcotics if possible, and repeat laboratory studies in the morning. 2. Alcohol dependence, high risk of alcohol withdrawal. The patient will be part started on CIWA protocol. She will given a banana bag this evening. 3. Nicotine dependence, patient refuses a nicotine patch. She expresses desire to discontinue smoking. 4. History of gastroparesis, versus cyclic vomiting, patient will continue on PP I, H2 samantha And antiemetics 5. Lumbar DJD, sciatica, patient reports some back pain. Will attempt to treat this with Tylenol for now. 6. Paroxysmal atrial fibrillation, patient is not anticoagulated, will hold her Coreg this evening however if her heart rate increases would consider resuming. 7. Acute kidney injury, likely related to dehydration, patient will continue IV fluids, will repeat her labs in the morning, if her abdominal pain persists would consider CT of the abdomen and pelvis once her creatinine has normalized. Patient indicates she is a full code will note that her record accordingly.
[2019-03-12 17:23] VITALS: BP 143/61; PULSE 93; RESP 15; TEMP 36.3; O2SAT 95
[2019-03-12] MEDS: LORazepam 2 MG/ML INJ 1.3 MG IV (17:45)
[2019-03-12] MEDS: THIAMINE 100 MG in DEXTROSE 5 % IN WATER 50 ML 204 ML IV (17:45)
[2019-03-12] MEDS: MAGNESIUM SULFATE 2 GM, FOLIC ACID 1 MG, THIAMINE 100 MG, MULTIVITAMIN 10 ML in SODIUM ... IV (17:45)
[2019-03-12 18:11] LABS: Add Manual Diff / Slide Review NO; Basophils Absolute Auto 0 /uL (0-100); Basophils Percent Auto 0.3 % (0-2); Eosinophils Absolute Auto 0 /uL (0-450); Eosinophils Percent Auto 0.3 % (2-4); Hematocrit 35.2 % (36-46); Hemoglobin 12.2 g/dL (12.0-16.0); Lymphocytes Absolute Auto 1600 /uL (1100-4500); Lymphocytes Percent Auto 19.4 % (25-40); Mean Corpuscular HGB Conc 34.5 % (30-36); Mean Corpuscular Hemoglobin 35.1 PG (26-34); Mean Corpuscular Volume 101.8 fL (80-100); Monocytes Absolute Auto 900 /uL (0-900); Monocytes Percent Auto 11.3 % (3-14); Neutrophils Absolute Auto 5700 /uL (1500-7000); Neutrophils Percent Auto 68.7 % (50-75); Platelet Count 216 X10^3/uL (150-400); Red Blood Cell Count 3.46 X10^6/uL (4.0-5.2); Red Cell Distribution Width 13.7 % (11.6-14.8); White Blood Cell Count 8.4 X10^3/uL (4.5-11.0)
[2019-03-12 18:26] LABS: Alanine Aminotransferase 35 IU/L (9-52); Albumin 4.3 g/dL (3.5-5.0); Albumin Globulin Ratio 1.6 (1.0-2.8); Alkaline Phosphatase 51 U/L (38-126); Aspartate Aminotransferase 51 IU/L (14-36); Bilirubin Total 0.7 mg/dL (0.2-1.3); Bilirubin Unconjugated 0.5 mg/dL (0.0-1.1); Blood Urea Nitrogen 35 mg/dL (7-17); Calcium 9.7 mg/dL (8.4-10.2); Carbon Dioxide 28 mmol/L (22-32); Chloride 92 mmol/L (98-107); Estimated Glomerular Filt Rate 57.6 mL/min (>60); Ethanol (ETOH) < 10 mg/dL; Globulin 2.7 g/dL (1.7-4.1); Glucose 99 mg/dL (70-100); HEMOLYSIS < 15 (0-50); Lipase 1748 U/L (23-300); Magnesium 1.6 mg/dL (1.6-2.3); Potassium 3.1 mmol/L (3.4-5.1); Sodium 132 mmol/L (137-145)
[2019-03-12 18:27] LABS: Cholesterol 187 mg/dL (140-199); HDL Cholesterol 59 mg/dL (40-60); LDL Cholesterol Calculated 105 mg/dL (<100); Triglycerides 117 mg/dL (35-150)
[2019-03-12 20:16] VITALS: BP 134/71; PULSE 89; RESP 20; TEMP 36.6
[2019-03-12] MEDS: MORPHINE 2 MG/ML INJ IV (20:16)
[2019-03-12 20:38] LABS: UR Morphine/Opiate cutoff 300 Negative (Negative); Ur Creatinine Normal (Normal); Ur Specific Gravity Normal (Normal); Urine Amphetamines Negative (Negative); Urine Barbiturates Negative (Negative); Urine Benzodiazepines Negative (Negative); Urine Cocaine Negative (Negative); Urine MDMA Negative (Negative); Urine Methadone Negative (Negative); Urine Methamphetamines Negative (Negative); Urine Oxycodone Negative (Negative); Urine Phencyclidine Negative (Negative); Urine Tetrahydrocannabinol Negative (Negative); Urine Tricyclic Antidepressant Negative (Negative); Urine pH Normal (Normal)
[2019-03-13] VITALS (12 sets, daily range): BP systolic 120–146; BP diastolic 68–95; PULSE 83–104; RESP 16–18; TEMP 36.1–37.4; O2SAT 97–100; BMI 26.0
[2019-03-13] MEDS: MORPHINE 2 MG/ML INJ IV ×3 (01:51→22:19)
[2019-03-13] MEDS: LACTATED RINGERS 1,000 ML 150 ML IV (01:52)
[2019-03-13] MEDS: LORazepam 2 MG/ML INJ 1 MG IV ×4 (01:52→20:20)
--- NOTE | 2019-03-13 06:57 | PC.NURSE ---
Patient is oriented x3, CIWA 3-5, mild anxiety and restlessness, mostly c/o sore throat from vomitting so much Medicated with IV Ativan x1 and IV morphine. LR @ 150ml/hr after Banana bag infused.
[2019-03-13 07:02] LABS: Add Manual Diff / Slide Review NO; Basophils Absolute Auto 0 /uL (0-100); Basophils Percent Auto 0.3 % (0-2); Eosinophils Absolute Auto 0 /uL (0-450); Eosinophils Percent Auto 0.8 % (2-4); Hematocrit 33.1 % (36-46); Hemoglobin 11.4 g/dL (12.0-16.0); Lymphocytes Absolute Auto 1600 /uL (1100-4500); Lymphocytes Percent Auto 24.8 % (25-40); Mean Corpuscular HGB Conc 34.6 % (30-36); Mean Corpuscular Hemoglobin 35.2 PG (26-34); Mean Corpuscular Volume 101.8 fL (80-100); Monocytes Absolute Auto 600 /uL (0-900); Monocytes Percent Auto 10.1 % (3-14); Neutrophils Absolute Auto 4000 /uL (1500-7000); Platelet Count 208 X10^3/uL (150-400); Red Blood Cell Count 3.25 X10^6/uL (4.0-5.2); Red Cell Distribution Width 13.7 % (11.6-14.8); White Blood Cell Count 6.3 X10^3/uL (4.5-11.0)
[2019-03-13 07:27] LABS: Alanine Aminotransferase 41 IU/L (9-52); Albumin 3.7 g/dL (3.5-5.0); Albumin Globulin Ratio 1.4 (1.0-2.8); Alkaline Phosphatase 47 U/L (38-126); Aspartate Aminotransferase 54 IU/L (14-36); BUN Creatinine Ratio 31.4 (6-22); Bilirubin Total 0.6 mg/dL (0.2-1.3); Blood Urea Nitrogen 22 mg/dL (7-17); Calcium 9.1 mg/dL (8.4-10.2); Carbon Dioxide 27 mmol/L (22-32); Chloride 97 mmol/L (98-107); Estimated Glomerular Filt Rate > 60.0 mL/min (>60); Globulin 2.6 g/dL (1.7-4.1); Glucose 88 mg/dL (70-100); HEMOLYSIS < 15 (0-50); Potassium 2.8 mmol/L (3.4-5.1); Sodium 133 mmol/L (137-145); Total Protein 6.3 g/dL (6.3-8.2)
[2019-03-13] MEDS: DOCUSATE 100 MG CAPSULE PO ×2 (09:37→19:51)
[2019-03-13] MEDS: FOLIC ACID 1 MG TABLET PO (09:37)
[2019-03-13] MEDS: CARVEDILOL 6.25 MG TABLET PO ×2 (09:37→19:51)
[2019-03-13] MEDS: LIDOCAINE VISCOUS 2% 10 ML, MAG HYDROX/ALUMINUM/SIMETH SUS 10 ML, NYSTATIN SUSP 1,000,0... MM ×3 (09:37→19:04)
[2019-03-13] MEDS: ENOXAPARIN 40 MG/0.4 ML SYRINGE SUBCUT (09:37)
[2019-03-13] MEDS: DEXTROSE 5%-0.45NS W/KCL 40MEQ 1,000 ML 100 MEQ IV ×2 (09:38→19:48)
[2019-03-13] MEDS: PANTOPRAZOLE 40 MG VIAL IV (09:38)
[2019-03-13] MEDS: MULTIVITAMIN 1 TABLET 1 TAB PO (09:38)
[2019-03-13] MEDS: THIAMINE 100 MG TABLET PO (09:38)
[2019-03-13] MEDS: POTASSIUM CHLORIDE 20 MEQ TAB 40 MEQ PO (09:39)
[2019-03-13] MEDS: ONDANSETRON 4 MG/2 ML INJ IV (09:59)
--- NOTE | 2019-03-13 10:39 | P.PN_ITS ---
Subjective Subjective Date Patient Seen: 03/13/19 Interval history: The patient is a 54-year-old female with a history of significant alcohol dependence admitted to the hospital yesterday for acute pancreatitis. Patient also reports a history of cyclic vomiting syndrome. She had vomiting yesterday, associated dry heaves, she reports some hematemesis, and dark stool. Since that time she has had no further vomiting. She has had some dry heaves. She has had no stool. Her abdominal pain has improved. She complains mostly of pain from retching but no significant middle abdominal pain. The patient complains of pain under the right breast from her vomiting as well. She is anxious to try some clear liquids. Patient received Magic mouthwash in the emergency department and would like to try that again. Exam Vital Signs (past 8 hours): - 03/13/19 06:07 03/13/19 07:37 Temperature 98.5 F 99.3 F Pulse Rate 94 H 83 Respiratory Rate 16 18 Blood Pressure 143/83 H 127/82 Pulse Oximetry 99 100 Oxygen Delivery Method Room Air Oxygen Flow Rate 0 Narrative Exam Narrative: Pleasant female in no acute distress Lungs: Clear to auscultation Cardiac exam: Regular rate rhythm normal S1-S2 Abdomen: Soft, mildly tender diffusely, no rebound tenderness no board-like rigidity, no palpable mass, no appreciable hepatosplenomegaly Extremities: No edema Skin: No lesion Psychiatric exam: No tremor, no hallucination, no delusions. No evidence of withdrawal. Objective Labs Result Diagrams: 03/13/19 06:38 03/13/19 06:38 Labs: Laboratory Results - last 24 hr 03/12/19 03/12/19 03/12/19 11:40 11:40 11:40 WBC 9.5 RBC 3.80 L Hgb 13.5 Hct 38.4 MCV 100.8 H MCH 35.5 H MCHC 35.2 RDW 13.7 Plt Count 271 Neut % (Auto) 76.3 H Lymph % (Auto) 14.0 L [place] % (Auto) 9.0 Eos % (Auto) 0.3 L Baso % (Auto) 0.4 Neut # (Auto) 7300 H Lymph # (Auto) 1300 [place] # (Auto) 900 Eos # (Auto) 0 Baso # (Auto) 0 Sodium 132 L Potassium 3.4 Chloride 88 L Carbon Dioxide 27 BUN 44 H Creatinine 1.20 H Estimated GFR 46.6 L BUN/Creatinine Ratio 36.7 H Glucose 137 H Calcium 10.7 H Magnesium Total Bilirubin 1.0 Conjugated Bilirubin Unconjugated Bilirubin AST 67 H ALT 31 Alkaline Phosphatase 62 Total Protein 8.3 H Albumin 4.9 Globulin 3.4 Albumin/Globulin Ratio 1.4 Triglycerides Cholesterol LDL Cholesterol, Calc HDL Cholesterol Lipase 3154 H Nasal Screen MRSA (PCR) U Morph 300 ng/mL cutoff Ur Oxycodone Screen Urine Methadone Screen Ur Barbiturates Screen U Tricyclic Antidepress Ur Phencyclidine Scrn Ur Amphetamines Screen U Methamphetamines Scrn Ur MDMA Scrn (Ecstasy) U Benzodiazepines Scrn Urine Cocaine Screen U Marijuana (THC) Screen Ethyl Alcohol Blood Type Antibody Screen 03/12/19 03/12/19 03/12/19 11:40 16:05 17:43 WBC RBC Hgb Hct MCV MCH MCHC RDW Plt Count Neut % (Auto) Lymph % (Auto) [place] % (Auto) Eos % (Auto) Baso % (Auto) Neut # (Auto) Lymph # (Auto) [place] # (Auto) Eos # (Auto) Baso # (Auto) Sodium Potassium Chloride Carbon Dioxide BUN Creatinine Estimated GFR BUN/Creatinine Ratio Glucose Calcium Magnesium Total Bilirubin Conjugated Bilirubin Unconjugated Bilirubin AST ALT Alkaline Phosphatase Total Protein Albumin Globulin Albumin/Globulin Ratio Triglycerides 117 Cholesterol 187 LDL Cholesterol, Calc 105 H HDL Cholesterol 59 Lipase Nasal Screen MRSA (PCR) Negative for mrsa U Morph 300 ng/mL cutoff Ur Oxycodone Screen Urine Methadone Screen Ur Barbiturates Screen U Tricyclic Antidepress Ur Phencyclidine Scrn Ur Amphetamines Screen U Methamphetamines Scrn Ur MDMA Scrn (Ecstasy) U Benzodiazepines Scrn Urine Cocaine Screen U Marijuana (THC) Screen Ethyl Alcohol Blood Type A Positive Antibody Screen Negative 03/12/19 03/12/19 03/12/19 17:43 17:43 20:25 WBC 8.4 RBC 3.46 L Hgb 12.2 Hct 35.2 L MCV 101.8 H MCH 35.1 H MCHC 34.5 RDW 13.7 Plt Count 216 Neut % (Auto) 68.7 Lymph % (Auto) 19.4 L [place] % (Auto) 11.3 Eos % (Auto) 0.3 L Baso % (Auto) 0.3 Neut # (Auto) 5700 Lymph # (Auto) 1600 [place] # (Auto) 900 Eos # (Auto) 0 Baso # (Auto) 0 Sodium 132 L Potassium 3.1 L Chloride 92 L Carbon Dioxide 28 BUN 35 H Creatinine 1.00 Estimated GFR 57.6 L BUN/Creatinine Ratio 35.0 H Glucose 99 Calcium 9.7 Magnesium 1.6 Total Bilirubin 0.7 Conjugated Bilirubin 0.0 Unconjugated Bilirubin 0.5 AST 51 H ALT 35 Alkaline Phosphatase 51 Total Protein 7.0 Albumin 4.3 Globulin 2.7 Albumin/Globulin Ratio 1.6 Triglycerides Cholesterol LDL Cholesterol, Calc HDL Cholesterol Lipase 1748 H Nasal Screen MRSA (PCR) U Morph 300 ng/mL cutoff Negative Ur Oxycodone Screen Negative Urine Methadone Screen Negative Ur Barbiturates Screen Negative U Tricyclic Antidepress Negative Ur Phencyclidine Scrn Negative Ur Amphetamines Screen Negative U Methamphetamines Scrn Negative Ur MDMA Scrn (Ecstasy) Negative U Benzodiazepines Scrn Negative Urine Cocaine Screen Negative U Marijuana (THC) Screen Negative Ethyl Alcohol < 10 Blood Type Antibody Screen 03/13/19 03/13/19 06:38 06:38 WBC 6.3 RBC 3.25 L Hgb 11.4 L Hct 33.1 L MCV 101.8 H MCH 35.2 H MCHC 34.6 RDW 13.7 Plt Count 208 Neut % (Auto) 64.0 Lymph % (Auto) 24.8 L [place] % (Auto) 10.1 Eos % (Auto) 0.8 L Baso % (Auto) 0.3 Neut # (Auto) 4000 Lymph # (Auto) 1600 [place] # (Auto) 600 Eos # (Auto) 0 Baso # (Auto) 0 Sodium 133 L Potassium 2.8 L Chloride 97 L Carbon Dioxide 27 BUN 22 H Creatinine 0.70 Estimated GFR > 60.0 BUN/Creatinine Ratio 31.4 H Glucose 88 Calcium 9.1 Magnesium Total Bilirubin 0.6 Conjugated Bilirubin Unconjugated Bilirubin AST 54 H ALT 41 Alkaline Phosphatase 47 Total Protein 6.3 Albumin 3.7 Globulin 2.6 Albumin/Globulin Ratio 1.4 Triglycerides Cholesterol LDL Cholesterol, Calc HDL Cholesterol Lipase Nasal Screen MRSA (PCR) U Morph 300 ng/mL cutoff Ur Oxycodone Screen Urine Methadone Screen Ur Barbiturates Screen U Tricyclic Antidepress Ur Phencyclidine Scrn Ur Amphetamines Screen U Methamphetamines Scrn Ur MDMA Scrn (Ecstasy) U Benzodiazepines Scrn Urine Cocaine Screen U Marijuana (THC) Screen Ethyl Alcohol Blood Type Antibody Screen Assessment & Plan Assessment & Plan narrative: Impression number wound 54-year-old female admitted to the hospital with acute pancreatitis. The patient has had a cholecystectomy in the past. She has had improvement of her abdominal pain but continues to have some dry heaving. The patient had acute renal failure on admission, CT scan of the abdomen has not been obtained as a result. As the patient is making significant improved will advance her diet to clear liquids today, continue her pain medications, repeat labs in the morning. 2. Acute kidney injury, likely secondary to persistent vomiting. Of note the patient has ketorolac with stents medication which can contribute to her renal failure as well. Her creatinine has normalized today. Will Hep-Lock IV fluid and advanced diet as tolerated 3. Hypokalemia, will replace 4. Hyponatremia, Will follow 5. Cyclic vomiting syndrome, improved 6. Paroxysmal atrial fibrillation, currently in sinus rhythm 7. Gastroesophageal reflux disease, continue PPI 8. Cyclic vomiting syndrome, appears to be improved 9. History of hematemesis/melanotic stool. Hemoglobin hematocrit stable. Id no evidence to suggest significant GI bleeding. Will continue to follow and monitor closely.
--- NOTE | 2019-03-13 16:21 | CM.DANOTE ---
DCP Assessment: EMR reviewed: patient is a 54 yr old female who lives with her mother and was admitted to hospital for vomiting x4 days. Patient PCP is with [facility]. CM met with patient at bedside. patient is alert and oriented and states she is I with ADL's at baseline. Patient stated she wants to d/c home when she is medically stable. CM spoke to patients Transitions of care director of casework through [facility] [phone] and they would like to schedule patient for a PCP F/U appointment prior to D/C from the hospital. CM spoke to patient and she said she would like that as long as she doesn't have to see Dr. Meza she stated that they do not have a great repor Insurance: 1st:[employer] 2nd: [employer] Plan: D/C home when stable with family. Cm department will call Cheryl back to set up appt once D/C date is clear. Lindsey Bauman RN Discharge Planning/Care Management CM Discharge Assessment Start: 03/13/19 16:19 Freq: Status: Active Protocol: Document 03/13/19 16:19 HS (Rec: 03/13/19 16:21 HS [id number]) Discharge Planning Assessment Assigned Production Planner Scheduler Lindsey Bauman RN DPOA/Assigned Designee Name Samia Wright (Mom) Contact Information [phone] Advance Directives? No History Provided By Patient,Medical Record Has Patient been admitted in last 30 No days? Prior Living Arrangements House Household Members family Type of transporation used prior to Drives own vehicle admit Independent with ADL's Yes Is patient alert and oriented? Yes Caregiver for Another No DME Already Rented / Owned FWW / Walker,Cane Discharge Plan Home Transportation Arrangement Mother Whiteboard Updated in Patient Room with Yes name and ext. # of Production Planner Scheduler Review Status In Process Next Review Type Continued Stay Review
[2019-03-13] MEDS: HYDROCODONE/ACET 10/325 TABLET 1 TAB PO (17:22)
--- NOTE | 2019-03-13 18:06 | DIET.PN ---
Dietary Progress Note Assessment: 54y F admitted for acute pancreatitis c hx of cyclic vomiting with episodes lasting 20+ hrs having had 12 episodes in past 6y. Pt is etoh dependent, lives with her mother who cooks all meals. Pt usually eats breakfast of leftovers about 10am then dinner at 6pm which is traditional [place] style: roast pork c mashed potatoes... Pt having considerable px c swallowing r/t stomach acid assault of throat. This RD provided pt with popsicle which was appreciated. Pt tried Ensure clear, experienced some burning but will try to drink to feel stronger. Pt reports wt loss in past week however, per weight record, pt was 69.5kg during acute pancreatitis stay on 12/14/18, indicating no weight loss, and actual some gain under similar circumstances. HT: 166.3cm WT: 72kg BMI: 26.0 Labs: Na 132 L, GFR 46.6 L, Ca 10.7 H, Lipase 3154 H, K+ 3.2 L MNA: 9 at risk Shaheen: 20 Nutrition Diagnosis: Inadequate PRO and kcal energy intake r/t cyclic vomiting for 5d aeb abnormal lab values (Na 132, K+ 3.2 L) pt reports little PO intake for past 5d Interventions: Recc ONS Ensure Clear Diet Order: Clears EER: 1700kcal, 72g PRO (1g/kg), 2.1 L fluids Monitoring/Evaluations: diet advancements, POs, associated labs
[2019-03-13] MEDS: SENNOSIDES 8.6 MG TABLET 17.2 MG PO (19:50)
[2019-03-13 20:03] LABS: Appearance Urine UA CLEAR; Bilirubin Urine UA NEGATIVE (NEGATIVE); Color Urine UA YELLOW; Glucose Urine UA NEGATIVE (Negative); Ketones Urine UA NEGATIVE (NEGATIVE); Leukocyte Esterase Urine UA NEGATIVE (NEGATIVE); Nitrite Urine UA NEGATIVE (Negative); Occult Blood Urine UA TRACE-INTACT (Negative); Protein Urine UA NEGATIVE (Negative); Urobilinogen Urine UA 0.2 E.U./dL (0.2)
[2019-03-13 20:16] LABS: pH Urine UA 5.5 (4.5-8.0)
[2019-03-13 20:22] LABS: Bacteria Urine Occasional (0-1); Culture Indicated Urine Cult Not Indicated; RBC Urine 1-5/HPF (0-5/HPF); Squamous Epithelial Cell Urine 1-5 /HPF (0-5/HPF); WBC Urine 1-5/HPF (0-5/HPF)
--- NOTE | 2019-03-13 21:12 | PC.NURSE ---
2112 - Patient being transferred to room 204. Report given to receiving IVELISSE Charles
--- NOTE | 2019-03-13 21:50 | PC.NURSE ---
Pt received from ICU in stable condition. Alert/oriented. IVF infusing as per MD orders. Pt oriented to room and call system. Call light w/in reach, bed alarm on for pt safety. Continue w/plan of care.
--- NOTE | 2019-03-13 22:28 | PC.NURSE ---
Addendum entered by Ronnie Sanches 03/13/19 22:37: Original Note: -Pt. does not want any phone calls, except from patient's mother and brother -Pt states sensitivity to sounds and bright light and wants door to remain closed at all times -
--- NOTE | 2019-03-13 22:39 | PC.NURSE ---
Anxiety Limiting environmental stimulation by meeting patient's request to: -No phone calls, except from patient's mother and brother, -Provides for patient's sensitivity to sounds and bright light by keeping patient's door closed at all times, per patient request. -Evaluate for decreased anxiety by meeting the above listed interventions. -Safety; bed in low and locked position, call light within reach, bed alarm on, and patient reminded to call before transferring out of bed.
[2019-03-14] VITALS (12 sets, daily range): BP systolic 101–136; BP diastolic 65–86; PULSE 82–96; RESP 16–18; TEMP 36.4–36.9; O2SAT 93–99
[2019-03-14] MEDS: HYDROCODONE/ACET 10/325 TABLET 1 TAB PO ×4 (01:27→21:50)
--- NOTE | 2019-03-14 02:38 | PC.NURSE ---
Addendum entered by Veronique Townsend R.N. 03/14/19 06:04: Slept most of shift. States generalized pain this morning related to pancreatitis and chronic back problems; medicated with Vicodin. Complains of burning discomfort in esophagus although states it is easier to swallow this morning; medicated with magic mouthwash solution. Original Note: 0130 Patient is alert and oriented and goes into great detail with history of illness. Breath sounds CTA with RA sat of 96%; on continuous oximetry. HRR. Complains of mild nausea but denies emesis. BT present and abdomen is soft but tender in epigastric area. Denies dysuria, frequency or urgency. Able to move self in bed and is assisted to bathroom with 1 assist due to weakness. Complains of neck/shoulder/headache and epigastric pain so medicated with Vicodin. CIWA score is 5 for headache, mild nausea, light sensitivity and mild anxiety. Fall risk score is moderate; bed alarm is activated for safety.
[2019-03-14] MEDS: PANTOPRAZOLE 40 MG TABLET PO (05:53)
[2019-03-14] MEDS: DEXTROSE 5%-0.45NS W/KCL 40MEQ 1,000 ML 100 MEQ IV ×2 (05:53→16:47)
[2019-03-14] MEDS: LIDOCAINE VISCOUS 2% 10 ML, MAG HYDROX/ALUMINUM/SIMETH SUS 10 ML, NYSTATIN SUSP 1,000,0... MM ×4 (05:58→21:51)
[2019-03-14 06:14] LABS: Add Manual Diff / Slide Review NO; Basophils Absolute Auto 0 /uL (0-100); Basophils Percent Auto 0.4 % (0-2); Eosinophils Absolute Auto 100 /uL (0-450); Eosinophils Percent Auto 1.2 % (2-4); Hematocrit 31.6 % (36-46); Hemoglobin 10.8 g/dL (12.0-16.0); Lymphocytes Absolute Auto 1800 /uL (1100-4500); Lymphocytes Percent Auto 31.2 % (25-40); Mean Corpuscular HGB Conc 34.2 % (30-36); Mean Corpuscular Hemoglobin 35.1 PG (26-34); Mean Corpuscular Volume 102.6 fL (80-100); Monocytes Absolute Auto 700 /uL (0-900); Monocytes Percent Auto 12.5 % (3-14); Neutrophils Absolute Auto 3100 /uL (1500-7000); Neutrophils Percent Auto 54.7 % (50-75); Platelet Count 213 X10^3/uL (150-400); Red Blood Cell Count 3.08 X10^6/uL (4.0-5.2); Red Cell Distribution Width 13.5 % (11.6-14.8); White Blood Cell Count 5.7 X10^3/uL (4.5-11.0)
[2019-03-14 06:29] LABS: Alanine Aminotransferase 41 IU/L (9-52); Albumin 3.3 g/dL (3.5-5.0); Albumin Globulin Ratio 1.2 (1.0-2.8); Alkaline Phosphatase 40 U/L (38-126); Aspartate Aminotransferase 43 IU/L (14-36); BUN Creatinine Ratio 13.3 (6-22); Bilirubin Total 0.5 mg/dL (0.2-1.3); Blood Urea Nitrogen 8 mg/dL (7-17); Calcium 8.8 mg/dL (8.4-10.2); Carbon Dioxide 30 mmol/L (22-32); Chloride 97 mmol/L (98-107); Estimated Glomerular Filt Rate > 60.0 mL/min (>60); Globulin 2.7 g/dL (1.7-4.1); Glucose 114 mg/dL (70-100); HEMOLYSIS < 15 (0-50); Potassium 3.5 mmol/L (3.4-5.1); Sodium 133 mmol/L (137-145)
[2019-03-14] MEDS: ONDANSETRON 4 MG/2 ML INJ IV ×2 (09:50→18:21)
[2019-03-14] MEDS: MULTIVITAMIN 1 TABLET 1 TAB PO (09:51)
[2019-03-14] MEDS: THIAMINE 100 MG TABLET PO (09:51)
[2019-03-14] MEDS: FOLIC ACID 1 MG TABLET PO (09:51)
[2019-03-14] MEDS: DOCUSATE 100 MG CAPSULE PO ×2 (09:52→21:11)
[2019-03-14] MEDS: CARVEDILOL 6.25 MG TABLET PO ×2 (09:52→21:11)
[2019-03-14] MEDS: ENOXAPARIN 40 MG/0.4 ML SYRINGE SUBCUT (09:52)
[2019-03-14] MEDS: LORazepam 2 MG/ML INJ 1 MG IV ×2 (12:23→17:27)
--- NOTE | 2019-03-14 15:36 | PM.PN.1 ---
Subjective Subjective Date Patient Seen: 03/14/19 Interval history: Patient is a 54-year-old female with a history of alcohol dependence and withdrawal who presented with acute pancreatitis. The patient also has a history of cyclic vomiting syndrome. She was found to have an acute kidney injury related to most likely her vomiting. The patient reports feeling ?tearful this morning. She has been shaky, reports hallucinations, and reports a headache. She was offered Ativan and declines as she feels the medication makes her sleepy. She has upper abdominal pain right breast pain and upper neck pain. She relates this to vomiting. She has no significant abdominal pain per se. Exam Vital Signs (past 8 hours): - 03/14/19 09:00 03/14/19 09:52 03/14/19 11:39 Temperature 98.0 F Pulse Rate 88 90 Respiratory Rate 18 Blood Pressure 110/71 101/65 Pulse Oximetry 97 98 Oxygen Delivery Method Room Air Oxygen Flow Rate 0 Narrative Exam Narrative: Tearful ill-appearing female Lungs: Clear to auscultation Cardiac exam: Regular rate and rhythm normal S1-S2 Abdomen: Soft, nontender, nondistended, no palpable masses no hepatosplenomegaly Extremities: No edema Objective Labs Result Diagrams: 03/14/19 05:30 03/14/19 05:30 Labs: Laboratory Results - last 24 hr 03/13/19 03/14/19 03/14/19 19:58 05:30 05:30 WBC 5.7 RBC 3.08 L Hgb 10.8 L Hct 31.6 L MCV 102.6 H MCH 35.1 H MCHC 34.2 RDW 13.5 Plt Count 213 Neut % (Auto) 54.7 Lymph % (Auto) 31.2 [place] % (Auto) 12.5 Eos % (Auto) 1.2 L Baso % (Auto) 0.4 Neut # (Auto) 3100 Lymph # (Auto) 1800 [place] # (Auto) 700 Eos # (Auto) 100 Baso # (Auto) 0 Sodium 133 L Potassium 3.5 Chloride 97 L Carbon Dioxide 30 BUN 8 Creatinine 0.60 Estimated GFR > 60.0 BUN/Creatinine Ratio 13.3 Glucose 114 H Calcium 8.8 Total Bilirubin 0.5 AST 43 H ALT 41 Alkaline Phosphatase 40 Total Protein 6.0 L Albumin 3.3 L Globulin 2.7 Albumin/Globulin Ratio 1.2 Urine Color Yellow Urine Appearance Clear Urine pH 5.5 Ur Specific [place] 1.010 Urine Protein Negative Urine Glucose (UA) Negative Urine Ketones Negative Urine Occult Blood Trace-intact Urine Nitrate Negative Urine Bilirubin Negative Urine Urobilinogen 0.2 Ur Leukocyte Esterase Negative Urine RBC 1-5/hpf Urine WBC 1-5/hpf Ur Squamous Epith Cells 1-5 /hpf Urine Bacteria Occasional (0-1) Ur Culture Indicated? Cult not indicated Assessment & Plan Assessment & Plan narrative: Impression 1. A 54-year-old female admitted to the hospital with acute pancreatitis. Her initial lipase was over 3000. Repeat lipase was 17 141. The patient is on a clear liquid diet. She has no significant abdominal pain per se. The patient will continue to have her diet advanced as she tolerates. She has a history of cholecystectomy. The most likely etiology of her acute pancreatitis is alcohol. 2. Alcohol dependence with withdrawal. Patient has symptoms of DTs including hallucinations, headache, tremor. Patient is on the CIWA protocol will encourage Ativan. 3. Hypokalemia, will replace 4. Hyponatremia, will replace 5. Cyclic vomiting syndrome, improved 6. GERD, continue Magic mouthwash and PPI Anticipate discharge home in 1-2 days will continue to advance her diet.
[2019-03-14] MEDS: SENNOSIDES 8.6 MG TABLET 17.2 MG PO (21:12)
--- NOTE | 2019-03-15 00:07 | PC.NURSE ---
Addendum entered by Veronique Townsend R.N. 03/15/19 06:32: Medicated earlier with Zofran for complaint of nausea without dry heaves or emesis; no complaint of nausea at this time. Is having 6/10 right leg and back pain; medicated with Vicodin. Addendum entered by Veronique Townsend R.N. 03/15/19 05:20: Noted edema in left hand below IV site. IV site d'cd and new IV inserted in right forearm. Ice applied to left hand. Addendum entered by Veronique Townsend R.N. 03/15/19 02:46: Complains of 6/10 back pain; medicated with Vicodin. Also requests/medicated with magic mouthwash for burning sensation in throat. Original Note: Alert and oriented. Breath sounds CTA with RA sat of 95%. HRR. Denies nausea. BT present and abdomen is soft; still cleaner tube across upper abdomen. Has not had BM since 03/11; received Senna on previous shift. Mild headache at present time but denies pain for which she needs any medication. Voiding on toilet; denies dysuria, frequency or urgency. Able to turn self in bed and ambulates to bathroom with SBA. CIWA score is 2 for mild headache and moist palms. Fall risk score is moderate; since patient reportedly not always calling for assistance to bathroom bed alarm is activated.
[2019-03-15] MEDS: HYDROCODONE/ACET 10/325 TABLET 1 TAB PO ×2 (02:38→06:30)
[2019-03-15] MEDS: LIDOCAINE VISCOUS 2% 10 ML, MAG HYDROX/ALUMINUM/SIMETH SUS 10 ML, NYSTATIN SUSP 1,000,0... MM ×3 (02:39→12:48)
[2019-03-15] MEDS: DEXTROSE 5%-0.45NS W/KCL 40MEQ 1,000 ML 100 MEQ IV (02:43)
[2019-03-15 04:40] VITALS: BP 114/82; PULSE 77; RESP 16; TEMP 36.3; O2SAT 95
[2019-03-15] MEDS: ONDANSETRON 4 MG/2 ML INJ IV (04:57)
[2019-03-15 06:08] LABS: Alanine Aminotransferase 37 IU/L (9-52); Albumin 3.2 g/dL (3.5-5.0); Albumin Globulin Ratio 1.4 (1.0-2.8); Alkaline Phosphatase 35 U/L (38-126); Aspartate Aminotransferase 33 IU/L (14-36); Bilirubin Total 0.4 mg/dL (0.2-1.3); Calcium 8.8 mg/dL (8.4-10.2); Carbon Dioxide 29 mmol/L (22-32); Chloride 98 mmol/L (98-107); Estimated Glomerular Filt Rate > 60.0 mL/min (>60); Globulin 2.3 g/dL (1.7-4.1); Glucose 109 mg/dL (70-100); HEMOLYSIS < 15 (0-50); Magnesium 1.6 mg/dL (1.6-2.3); Potassium 3.7 mmol/L (3.4-5.1); Sodium 133 mmol/L (137-145); Total Protein 5.5 g/dL (6.3-8.2)
[2019-03-15 06:21] LABS: BUN Creatinine Ratio 3.3 (6-22); Blood Urea Nitrogen 2 mg/dL (7-17)
[2019-03-15] MEDS: PANTOPRAZOLE 40 MG TABLET PO (06:30)
[2019-03-15 06:38] LABS: Thyroid Stimulating Hormone 4.57 uIU/mL (0.47-4.68)
[2019-03-15 07:35] VITALS: BP 126/81; PULSE 88; RESP 18; TEMP 36.6; O2SAT 95
[2019-03-15 07:50] VITALS: O2SAT 95
[2019-03-15 08:25] VITALS: BP 126/61
[2019-03-15] MEDS: MULTIVITAMIN 1 TABLET 1 TAB PO (08:25)
[2019-03-15] MEDS: DOCUSATE 100 MG CAPSULE PO (08:25)
[2019-03-15] MEDS: FOLIC ACID 1 MG TABLET PO (08:25)
[2019-03-15] MEDS: THIAMINE 100 MG TABLET PO (08:25)
[2019-03-15] MEDS: CARVEDILOL 6.25 MG TABLET PO (08:25)
[2019-03-15] MEDS: ENOXAPARIN 40 MG/0.4 ML SYRINGE SUBCUT (08:26)
--- NOTE | 2019-03-15 10:51 | P.DS_ITS ---
History of Present Illness History of Present Illness Date Patient Seen: 03/15/19 Time Patient Seen: 11:40 Chief complaint: vomiting x4 days/needs fluids Narrative: The patient is a 54-year-old female with a history of pancreatitis, chronic cyclic vomiting, gastroparesis, esophagitis, lumbar DJD, sciatica, paroxysmal atrial fibrillation who was in her usual state of health until Monday 4 days prior to admission. Patient states she developed vomiting which she describes as repetitive that starts with hip cups then continue S dry heaving with minimal bilis vomiting. This continued throughout the night Monday and into the day Monday. She states she has been unable to eat because she has been unable to keep anything down. Because of the persistent nausea and vomiting she presented to the emergency room for evaluation. Patient reports some abdominal pain which she attributes to her retching. She has some pain in her upper shoulders from vomiting as well. She describes vomiting up dark coffee-ground emesis which was ?stringy in character. She also reports some dark black stool. Patient took some ibuprofen earlier this morning with food. She does report intermittently using ibuprofen. In addition she describes her drinking as increasing. She drinks at least 4 vodkas per day plus wine. She continues to smoke 7 cigarettes per day but is interested in quitting. She declines a nicotine patch during the hospital stay. The patient was seen and evaluated in the emergency department. Her lipase was elevated at 3100. She was given anti emetic medication for her nausea and admitted to the hospital for acute pancreatitis. The patient has had no fever chills. She reports but of 7 lb weight loss over the past week. She has no dysuria hematuria or pyuria. She denies any headache blurred vision double vision. She has no shortness of breath or chest pain. However she does report some chest discomfort from her vomiting. Patient does report history of DTs when withdrawing from alcohol. She has had hallucinations shakes and palpi tations previously. Discharge Providers Provider Date of admission: 03/12/19 13:53 Discharge Date: 03/15/19 Primary care physician: Cindy Meza MD Consults: 03/12/19 16:13 Consult to Dietitian, Adult Routine Comment: Reason For Exam: assessed at high risk 03/12/19 17:23 Consult to Dietitian, Adult Routine Comment: Reason For Exam: not eating for five days 03/12/19 17:33 Consult to Dietitian, Adult Routine Comment: Reason For Exam: not eating Discharge provider: Brooks Adler MD Summary Hospital Course Discharge Diagnosis: 1. Acute pancreatitis. 2. Alcohol dependence with withdrawal 3. Hypokalemia 4. Hyponatremia 5. Cyclic vomiting syndrome 6. GERD Hospital Course: 1. Alcoholic pancreatitis. Her initial lipase was over 3000. She has a history of cholecystectomy. The most likely etiology of her acute pancreatitis is alcohol - vodka. 2. Alcohol dependence with withdrawal. Patient had symptoms of DTs including hallucinations, headache, tremor. She was treated per CIWA with Ativan IV. 3. Hypokalemia, resolved to 3.7. 4. Hyponatremia, resolved to 133. 5. Cyclic vomiting syndrome, improved 6. GERD, continue Magic mouthwash and PPI for her throat pain. Status at Discharge Cognitive/behavioral status at discharge: oriented Functional status at discharge: independent ambulation Overall status at discharge: patient is progressing back to baseline Time Spent with Patient Time spent: Less than 30 minutes Exam Vital Signs (past 8 hours): - 03/15/19 04:40 03/15/19 07:35 03/15/19 08:25 Temperature 97.4 F L 97.9 F Pulse Rate 77 88 Respiratory Rate 16 18 Blood Pressure 114/82 126/81 126/61 Pulse Oximetry 95 95 Oxygen Delivery Method Room Air Oxygen Flow Rate 0 Narrative Exam Narrative: She is somewhat anxious, oriented x3. Oral exam is normal. She has some tenderness in the anterior neck but no swelling. Heart is regular rate and rhythm without murmur. Extremities have no ankle edema. Abdomen is mildly tender on the right side, with bowel sounds positive, no organomegaly. Objective Labs Result Diagrams: 03/14/19 05:30 03/15/19 05:40 Labs: Laboratory Results - last 24 hr 03/15/19 03/15/19 05:40 05:40 Sodium 133 L Potassium 3.7 Chloride 98 Carbon Dioxide 29 BUN 2 L Creatinine 0.60 Estimated GFR > 60.0 BUN/Creatinine Ratio 3.3 L Glucose 109 H Calcium 8.8 Magnesium 1.6 Total Bilirubin 0.4 AST 33 ALT 37 Alkaline Phosphatase 35 L Total Protein 5.5 L Albumin 3.2 L Globulin 2.3 Albumin/Globulin Ratio 1.4 TSH 4.57 Discharge Plan Discharge Plan Patient Disposition: Home Discharge comment: Follow up with Dr. Meza in one week. Do not drink alcohol. Discharge Med Rec/Prescriptions Prescriptions: New lorazepam 0.5 mg tablet 0.5 mg PO TID PRN (Reason: alcohol withdrawal) Qty: 10 RF: 0 OraMagicRx Mouthwash 1 each MM PRN PRN (Reason: sore throat) Qty: 315 RF: 0 Continued carvedilol [Coreg] 6.25 MG tablet 6.25 mg PO BID Qty: 0 RF: 0 hydroxyzine HCl 25 MG tablet 25 mg PO Q6H PRN (Reason: Anxiety) Qty: 0 RF: 0 omeprazole 20 mg capsule,delayed release(DR/EC) 20 mg PO DAILY RF: 0 methocarbamol 500 mg tablet 500 mg PO BEDTIME PRN (Reason: Spasms) RF: 0 ketorolac 10 mg tablet 10 mg PO QID PRN (Reason: pain) RF: 0 ranitidine HCl 150 mg Tablet 150 mg PO BID Qty: 60 RF: 0 simethicone 80 mg Tablet,Chewable 80 mg PO QID PRN (Reason: Acid Reflux) Qty: 120 RF: 0 gabapentin 600 mg tablet 600 mg PO TID Qty: 90 RF: 0 Follow up/Referrals: Cindy Meza MD [Primary Care Provider] - 03/25/19 10:30 am Visit Report/Discharge Packet Instructions: DI for Pancreatitis, DI for Alcohol Abuse, Lorazepam (By mouth) Visit Report Forms: Patient Portal/API, Stroke Signs & Symptoms Discharge Data Primary Care Provider: Cindy Meza Discharges patient from system. Discharge Date/Time: 03/15/19 14:25
--- NOTE | 2019-03-15 13:06 | PC.NURSE ---
Pt is dressed and ready for discharge home with mother. IV has been removed. Went over d/c instructions with Pt-discussed meds, time of last dose, discussed not drinking alcohol and setting up a support system at home. Reviewed stroke education. Pt denies further questions and will call when her mother is here to pick her up.
== END 2019-03-15 14:25 | disposition home or self-care (01) | DRG 282 ==
LOC: ED 12:41 → AC 13:54 → ICU 15:51 → AC 03-13 21:44
PROVIDERS: Admitting Provider Internal Medicine; Emergency Provider Emergency Medicine; PCP Family Medicine; Visit Provider Internal Medicine
DX: K85.20 Alcohol induced acute pancreatitis without necrosis or infection (principal); Y90.0 Blood alcohol level of less than 20 mg/100 ml; F17.200 Nicotine dependence, unspecified, uncomplicated; I48.0 Paroxysmal atrial fibrillation; N17.9 Acute kidney failure, unspecified; E86.0 Dehydration; R11.15 Cyclical vomiting syndrome unrelated to migraine; E87.1 Hypo-osmolality and hyponatremia; F10.231 Alcohol dependence with withdrawal delirium; E87.6 Hypokalemia
CPT/HCPCS: 36415; 71045; 80053; 80061; 80076; 80305; 80320; 81001; 83690; 83735; 84443; 85025; 86850; 86900; 86901; 87797; 94762; 96361; 96372; 96374; 96375; 96376; 99283; 99284; C9113; J1650; J2060; J2270; J2405; J3475

== ENCOUNTER 2019-03-25 16:57 | Emergency (ER) | payer OTHER, MEDICAID, SELFPAY ==
[2019-03-25 17:04] VITALS: BP 131/82; PULSE 125; RESP 15; TEMP 36.1; O2SAT 97; BMI 25.0
--- NOTE | 2019-03-25 17:13 | ED.GENADULT ---
HPI - General Adult General Chief complaint: Abdominal Pain Stated complaint: VOMITING PAIN UPPER ABD Time Seen by Provider: 03/25/19 17:06 Source: patient Mode of arrival: Ambulatory Limitations: no limitations History of Present Illness HPI narrative: 54-year-old female. States she has a history of ?cyclic vomiting syndrome ?I have seen her in the emergency department in the past. She has had pancreatitis in the past for which she was admitted to the hospital for. She states she has not drank in the past several weeks. States she is having 1 of her episodes of nausea and vomiting. Having a lot of ?burning? in her esophagus from the vomiting. She was concerned that she ?ripped something ? Related Data Home Medications Medication Instructions Recorded Confirmed carvedilol [Coreg] 6.25 mg PO BID #0 12/26/16 03/25/19 hydroxyzine HCl 25 mg PO Q6H PRN #0 12/26/16 03/25/19 methocarbamol 500 mg PO BID 03/12/19 03/25/19 omeprazole 20 mg PO DAILY 03/12/19 03/25/19 acetaminophen 1 tab PO QAM 03/25/19 03/25/19 ibuprofen 1 tab PO QAM 03/25/19 03/25/19 Previous Rx's Medication Instructions Recorded gabapentin 600 mg PO TID #90 tab 12/16/18 ranitidine HCl 150 mg PO BID #60 tab 12/16/18 simethicone 80 mg PO QID PRN #120 tab 12/16/18 lorazepam 0.5 mg PO TID PRN #10 tab 03/15/19 pot lrxn-awlgstgn-ittb-manpoly 1 each MM PRN PRN #315 ml 03/15/19 [OraMagicRx] metoclopramide HCl [Reglan] 10 mg PO Q6H PRN #20 tab 03/25/19 sucralfate [Carafate] 10 ml PO QID PRN #420 ml 03/25/19 Allergies Allergy/AdvReac Type Severity Reaction Status Date / Time No Known Drug Allergies Allergy Verified 03/25/19 17:04 Review of Systems Constitutional Constitutional: Denies fever(s) Cardiovascular Cardiovascular: Denies chest pain and Denies dyspnea Respiratory Respiratory: Denies dyspnea Gastrointestinal Gastrointestinal: Reports nausea and Reports vomiting Musculoskeletal Musculoskeletal: Denies myalgias and Denies arthralgias Integumentary/Breasts Skin/Breast: Denies rash Hematologic/Lymphatic Hematologic/Lymphatic: Denies easy bleeding and Denies easy bruising Patient History Medical History Degenerative joint disease (DJD) of lumbar spine (Acute) Low back pain (Acute) Paroxysmal atrial fibrillation (Acute) Sciatica associated with disorder of lumbar spine (Acute) Surgical History History of cholecystectomy (Acute) History of colonoscopy (Acute) History of esophagogastroduodenoscopy (EGD) (Acute) History of local excision of skin lesion (Acute) Family History Father COPD (chronic obstructive pulmonary disease) Social History household members: family Smoking Status: Current every day smoker alcohol intake: current substance use type: does not use alcohol intake frequency: 3 or more drinks per day Substance Use Type: marijuana Exam Initial Vital Signs Initial Vital Signs: Vital Signs Temperature 97.0 F L 03/25/19 17:04 Pulse Rate 125 H 03/25/19 17:04 Respiratory Rate 15 03/25/19 17:04 Blood Pressure 131/82 03/25/19 17:04 Pulse Oximetry 97 03/25/19 17:04 Const General: cooperative, healthy appearing, comfortable and well developed HENMT Head: normal to inspection and normocephalic Resp Effort & Inspection: normal respiratory effort Auscultation: clear to auscultation bilaterally Cardio Rate: regular rate Rhythm: regular rhythm GI Inspection: non-distended Palpation: soft, No firm and No tender Skin Lesions: no lesions Rashes: no rashes Neuro General: alert, awake and oriented x3 Cognition: normal cognition Speech: speech normal Extrem General: normal to inspection and capillary refill normal Psych Appearance: grossly normal and well kempt Course Orders Ordered: ED Orders 03/25/19 17:15 Urine Microscopic Stat 03/25/19 17:20 Complete Blood Count AUTO DIFF Stat Comprehensive Metabolic Panel Stat Lipase Stat 03/25/19 17:30 XR chest 1V Stat 03/25/19 18:20 Urine Drug Screen, Rapid Stat Discontinued Medications Acetaminophen (Tylenol) 650 mg PO NOW ONE Stop: 10/28/19 18:30 Last Admin: 03/25/19 18:33 Dose: 650 mg Documented by: ARELY Al Hydrox/Mg Hydrox/Simethicone 20 ml/ Lidocaine HCl 15 ml 0 ml PO NOW ONE Stop: 03/25/19 17:31 Last Admin: 03/25/19 17:45 Dose: 35 ml Documented by: ARELY Sodium Chloride (Normal Saline 0.9%) 1,000 mls @ 1,000 mls/hr IV BOLUS ONE Stop: 03/25/19 18:07 Last Admin: 03/25/19 17:20 Dose: 1,000 mls/hr Documented by: SHELLY Lorazepam (Ativan) 1 mg PO NOW ONE Stop: 03/25/19 17:31 Last Admin: 03/25/19 17:44 Dose: 1 mg Documented by: ARELY Pantoprazole Sodium (Protonix) 40 mg IV NOW ONE Stop: 03/25/19 17:09 Last Admin: 03/25/19 17:20 Dose: 40 mg Documented by: SHELLY Vital Signs Vital signs: Vital Signs - 8 hr 03/25/19 17:04 Temperature 97.0 F L Pulse Rate 125 H Respiratory Rate 15 Blood Pressure 131/82 Pulse Oximetry 97 Medical Decision Making Lab Data Lab results reviewed: Yes I reviewed the patient's lab results. Result diagrams: 03/25/19 17:20 03/25/19 17:20 Labs: Lab Results 03/25/19 03/25/19 03/25/19 Range/Units 17:15 17:20 17:20 WBC 7.3 (4.5-11.0) X10^3/uL RBC 3.24 L (4.0-5.2) X10^6/uL Hgb 11.7 L (12.0-16.0) g/dL Hct 32.9 L (36-46) % MCV 101.5 H (80-100) fL MCH 36.0 H (26-34) PG MCHC 35.5 (30-36) % RDW 13.4 (11.6-14.8) % Plt Count 528 H (150-400) X10^3/uL Neut % (Auto) 66.4 (50-75) % Lymph % (Auto) 21.7 L (25-40) % Greer % (Auto) 9.5 (3-14) % Eos % (Auto) 1.6 L (2-4) % Baso % (Auto) 0.8 (0-2) % Neut # (Auto) 4800 (4099-7273) /uL Lymph # (Auto) 1600 (8471-6920) /uL Greer # (Auto) 700 (0-900) /uL Eos # (Auto) 100 (0-450) /uL Baso # (Auto) 100 (0-100) /uL Sodium 139 (137-145) mmol/L Potassium 3.9 (3.4-5.1) mmol/L Chloride 100 (98-107) mmol/L Carbon Dioxide 30 (22-32) mmol/L BUN 13 (7-17) mg/dL Creatinine 0.60 (0.52-1.04) mg/dL Estimated GFR > 60.0 (>60) mL/min BUN/Creatinine Ratio 21.7 (6-22) Glucose 115 H (70-100) mg/dL Calcium 10.1 (8.4-10.2) mg/dL Total Bilirubin 0.4 (0.2-1.3) mg/dL AST 40 H (14-36) IU/L ALT 29 (9-52) IU/L Alkaline Phosphatase 41 (38-126) U/L Total Protein 7.4 (6.3-8.2) g/dL Albumin 4.3 (3.5-5.0) g/dL Globulin 3.1 (1.7-4.1) g/dL Albumin/Globulin Ratio 1.4 (1.0-2.8) Lipase 258 (23-300) U/L Urine RBC 1-5/hpf (0-5/HPF) Urine WBC 5-10/hpf H (0-5/HPF) Ur Squamous Epith Cells >30 /hpf H D (0-5/HPF) Urine Bacteria Moderate (10-30) H (None) Urine Mucus 2+ H (Negative) Ur Culture Indicated? Cult not indicated Micro UA Comment Not a clean catch U Morph 300 ng/mL cutoff (Negative) Ur Oxycodone Screen (Negative) Urine Methadone Screen (Negative) Ur Barbiturates Screen (Negative) U Tricyclic Antidepress (Negative) Ur Phencyclidine Scrn (Negative) Ur Amphetamines Screen (Negative) U Methamphetamines Scrn (Negative) Ur MDMA Scrn (Ecstasy) (Negative) U Benzodiazepines Scrn (Negative) Urine Cocaine Screen (Negative) U Marijuana (THC) Screen (Negative) 03/25/19 Range/Units 18:20 WBC (4.5-11.0) X10^3/uL RBC (4.0-5.2) X10^6/uL Hgb (12.0-16.0) g/dL Hct (36-46) % MCV (80-100) fL MCH (26-34) PG MCHC (30-36) % RDW (11.6-14.8) % Plt Count (150-400) X10^3/uL Neut % (Auto) (50-75) % Lymph % (Auto) (25-40) % Greer % (Auto) (3-14) % Eos % (Auto) (2-4) % Baso % (Auto) (0-2) % Neut # (Auto) (9056-7638) /uL Lymph # (Auto) (4030-2096) /uL Greer # (Auto) (0-900) /uL Eos # (Auto) (0-450) /uL Baso # (Auto) (0-100) /uL Sodium (137-145) mmol/L Potassium (3.4-5.1) mmol/L Chloride (98-107) mmol/L Carbon Dioxide (22-32) mmol/L BUN (7-17) mg/dL Creatinine (0.52-1.04) mg/dL Estimated GFR (>60) mL/min BUN/Creatinine Ratio (6-22) Glucose (70-100) mg/dL Calcium (8.4-10.2) mg/dL Total Bilirubin (0.2-1.3) mg/dL AST (14-36) IU/L ALT (9-52) IU/L Alkaline Phosphatase (38-126) U/L Total Protein (6.3-8.2) g/dL Albumin (3.5-5.0) g/dL Globulin (1.7-4.1) g/dL Albumin/Globulin Ratio (1.0-2.8) Lipase (23-300) U/L Urine RBC (0-5/HPF) Urine WBC (0-5/HPF) Ur Squamous Epith Cells (0-5/HPF) Urine Bacteria (None) Urine Mucus (Negative) Ur Culture Indicated? Micro UA Comment U Morph 300 ng/mL cutoff Negative (Negative) Ur Oxycodone Screen Negative (Negative) Urine Methadone Screen Negative (Negative) Ur Barbiturates Screen Negative (Negative) U Tricyclic Antidepress Negative (Negative) Ur Phencyclidine Scrn Negative (Negative) Ur Amphetamines Screen Negative (Negative) U Methamphetamines Scrn Negative (Negative) Ur MDMA Scrn (Ecstasy) Negative (Negative) U Benzodiazepines Scrn Negative (Negative) Urine Cocaine Screen Negative (Negative) U Marijuana (THC) Screen Negative (Negative) Urine Dip Bedside Urine Glucose Negative Bedside Urine Bilirubin + 1 Bedside Urine Ketone + 15 Urine Specific [place] 1.015 Bedside Urine Occult Blood +/- Bedside Urine pH 6.0 Bedside Urine Protein + 30 Bedside Urine Urobilinogen 1+ 2mg Bedside Urine Leukocytes +/- 15 Esterase Point of care testing: Urine Dip Bedside Urine Glucose Negative Bedside Urine Bilirubin + 1 Bedside Urine Ketone + 15 Urine Specific [place] 1.015 Bedside Urine Occult Blood +/- Bedside Urine pH 6.0 Bedside Urine Protein + 30 Bedside Urine Urobilinogen 1+ 2mg Bedside Urine Leukocytes +/- 15 Esterase Imaging Data Chest x-ray: Radiologist's impression: [place] [address] XRay Report Signed Patient: Maxwell Sibley [facility]#: [id number] : 1965Acct:[id number] Age/Sex: 54 / FDate of Service: 03/25/19 Loc: ED Accession Number: [id number] Procedure: XR chest 1V Ordering Provider: Xavi Olivarez D.O. PROCEDURE: XR CHEST 1V INDICATIONS: free air after vomiting TECHNIQUE: One view of the chest was acquired. COMPARISON: [facility], CT, CT ABDOMEN PELVIS W CON, 12/14/2018, 15:49. [facility], CR, XR CHEST 1V, 03/12/2019, 12:04. FINDINGS: Surgical changes and devices: Cholecystectomy clips are seen. Lungs and pleura: Lungs are clear. No pleural effusions or pneumothorax. Mediastinum: Mediastinal contours appear normal. Heart size is normal. Bones and chest wall: Age-appropriate bony degenerative changes are seen. No suspicious bony lesions. Overlying soft tissues appear unremarkable. IMPRESSION: No findings of free air can be seen on this plain film study. If there is strong clinical concern for clinically relevant soft tissue gas, then please consider a dedicated CT study for further evaluation. Postoperative and degenerative changes are seen. Dictated by: Evan Dill M.D. on 03/25/2019 at 16:50 Approved by: Evan Dill M.D. on 03/25/2019 at 16:51 [facility] Narrative Medical decision making narrative: Patient without any abdominal pain. Her labs are unremarkable. No signs of pancreatitis. She was able to tolerate oral medications here in the ER. Chest x-ray shows no signs of free air. She does have Zofran at home however this does not seem to be working for her. Will send home with Reglan. Also sent home with Carafate. She has a follow-up with her primary doctor tomorrow. She expressed understanding and agreement with plan. Discharge Plan Departure Patient Disposition: Home Clinical Impression: Nausea and vomiting Qualifiers: Vomiting type: unspecified Vomiting Intractability: non-intractable Qualified Code(s): R11.2 - Nausea with vomiting, unspecified Instructions: DI for Nausea -- Adult Activity Restrictions/Additional Instructions: Continue all of your medications as directed. Keep all of your scheduled medical appointments. Return to the emergency department for any new or worsening symptoms Prescriptions: New metoclopramide HCl [Reglan] 10 mg tablet 10 mg PO Q6H PRN (Reason: nausea and vomiting) Qty: 20 RF: 0 sucralfate [Carafate] 100 mg/mL suspension 10 ml PO QID PRN (Reason: abdominal pain) Qty: 420 RF: 0 No Action carvedilol [Coreg] 6.25 MG tablet 6.25 mg PO BID Qty: 0 RF: 0 hydroxyzine HCl 25 MG tablet 25 mg PO Q6H PRN (Reason: Anxiety) Qty: 0 RF: 0 omeprazole 20 mg capsule,delayed release(DR/EC) 20 mg PO DAILY RF: 0 methocarbamol 500 mg tablet 500 mg PO BID RF: 0 lorazepam 0.5 mg tablet 0.5 mg PO TID PRN (Reason: alcohol withdrawal) Qty: 10 RF: 0 OraMagicRx Mouthwash 1 each MM PRN PRN (Reason: sore throat) Qty: 315 RF: 0 ranitidine HCl 150 mg Tablet 150 mg PO BID Qty: 60 RF: 0 simethicone 80 mg Tablet,Chewable 80 mg PO QID PRN (Reason: Acid Reflux) Qty: 120 RF: 0 gabapentin 600 mg tablet 600 mg PO TID Qty: 90 RF: 0 acetaminophen 1 tab PO QAM RF: 0 ibuprofen 1 tab PO QAM RF: 0 Referrals: Cindy Meza MD [Primary Care Provider] -
[2019-03-25] MEDS: SODIUM CHLORIDE 0.9% 1,000 ML 1000 ML IV (17:20)
[2019-03-25] MEDS: PANTOPRAZOLE 40 MG VIAL IV (17:20)
[2019-03-25 17:24] LABS: Add Manual Diff / Slide Review NO; Basophils Absolute Auto 100 /uL (0-100); Basophils Percent Auto 0.8 % (0-2); Eosinophils Absolute Auto 100 /uL (0-450); Eosinophils Percent Auto 1.6 % (2-4); Hematocrit 32.9 % (36-46); Hemoglobin 11.7 g/dL (12.0-16.0); Lymphocytes Absolute Auto 1600 /uL (1100-4500); Lymphocytes Percent Auto 21.7 % (25-40); Mean Corpuscular HGB Conc 35.5 % (30-36); Mean Corpuscular Volume 101.5 fL (80-100); Monocytes Absolute Auto 700 /uL (0-900); Monocytes Percent Auto 9.5 % (3-14); Neutrophils Absolute Auto 4800 /uL (1500-7000); Neutrophils Percent Auto 66.4 % (50-75); Platelet Count 528 X10^3/uL (150-400); Red Blood Cell Count 3.24 X10^6/uL (4.0-5.2); Red Cell Distribution Width 13.4 % (11.6-14.8); White Blood Cell Count 7.3 X10^3/uL (4.5-11.0)
[2019-03-25 17:27] LABS: Bacteria Urine Moderate (10-30); Culture Indicated Urine Cult Not Indicated; Mucus Urine 2+ (Negative); RBC Urine 1-5/HPF (0-5/HPF); Squamous Epithelial Cell Urine >30 /HPF (0-5/HPF); Urine Comments NOT A CLEAN CATCH; WBC Urine 5-10/HPF (0-5/HPF)
--- NOTE | 2019-03-25 17:30 | DI.RAD.S_ITS ---
PROCEDURE: XR CHEST 1V INDICATIONS: free air after vomiting TECHNIQUE: One view of the chest was acquired. COMPARISON: [facility], CT, CT ABDOMEN PELVIS W CON, 12/14/2018, 15:49. [facility], CR, XR CHEST 1V, 03/12/2019, 12:04. FINDINGS: Surgical changes and devices: Cholecystectomy clips are seen. Lungs and pleura: Lungs are clear. No pleural effusions or pneumothorax. Mediastinum: Mediastinal contours appear normal. Heart size is normal. Bones and chest wall: Age-appropriate bony degenerative changes are seen. No suspicious bony lesions. Overlying soft tissues appear unremarkable. IMPRESSION: No findings of free air can be seen on this plain film study. If there is strong clinical concern for clinically relevant soft tissue gas, then please consider a dedicated CT study for further evaluation. Postoperative and degenerative changes are seen. Dictated by: Evna Dill M.D. on 03/25/2019 at 16:50 Approved by: Evan Dill M.D. on 03/25/2019 at 16:51
[2019-03-25 17:36] LABS: Alanine Aminotransferase 29 IU/L (9-52); Albumin 4.3 g/dL (3.5-5.0); Albumin Globulin Ratio 1.4 (1.0-2.8); Alkaline Phosphatase 41 U/L (38-126); BUN Creatinine Ratio 21.7 (6-22); Bilirubin Total 0.4 mg/dL (0.2-1.3); Blood Urea Nitrogen 13 mg/dL (7-17); Calcium 10.1 mg/dL (8.4-10.2); Carbon Dioxide 30 mmol/L (22-32); Chloride 100 mmol/L (98-107); Estimated Glomerular Filt Rate > 60.0 mL/min (>60); Globulin 3.1 g/dL (1.7-4.1); Glucose 115 mg/dL (70-100); HEMOLYSIS 70 (0-50); Lipase 258 U/L (23-300); Potassium 3.9 mmol/L (3.4-5.1); Sodium 139 mmol/L (137-145); Total Protein 7.4 g/dL (6.3-8.2)
[2019-03-25 17:37] LABS: Aspartate Aminotransferase 40 IU/L (14-36)
[2019-03-25] MEDS: LORazepam 0.5 MG TABLET 1 MG PO (17:44)
[2019-03-25] MEDS: MAG HYDROX/ALUMINUM/SIMETH SUS 20 ML, LIDOCAINE VISCOUS 2% 15 ML PO (17:45)
[2019-03-25 18:20] VITALS: BP 132/80; PULSE 98; RESP 20; O2SAT 98
[2019-03-25 18:33] LABS: UR Morphine/Opiate cutoff 300 Negative (Negative); Ur Creatinine Normal (Normal); Ur Specific Gravity Normal (Normal); Urine Amphetamines Negative (Negative); Urine Barbiturates Negative (Negative); Urine Benzodiazepines Negative (Negative); Urine Cocaine Negative (Negative); Urine MDMA Negative (Negative); Urine Methadone Negative (Negative); Urine Methamphetamines Negative (Negative); Urine Oxycodone Negative (Negative); Urine Phencyclidine Negative (Negative); Urine Tetrahydrocannabinol Negative (Negative); Urine Tricyclic Antidepressant Negative (Negative); Urine pH Normal (Normal)
[2019-03-25] MEDS: ACETAMINOPHEN 325 MG TABLET 650 MG PO (18:33)
[2019-03-25 19:06] VITALS: BP 125/85; PULSE 96; RESP 22; O2SAT 99
== END 2019-03-25 19:06 | disposition home or self-care (01) ==
PROVIDERS: Emergency Provider Emergency Medicine; PCP Family Medicine
DX: R11.2 Nausea with vomiting, unspecified (principal); R79.89 Other specified abnormal findings of blood chemistry; R11.15 Cyclical vomiting syndrome unrelated to migraine
CPT/HCPCS: 36415; 71045; 80053; 80305; 81003; 81015; 83690; 85025; 96361; 96374; 99283; 99284; C9113

== ENCOUNTER 2019-06-30 10:56 | Emergency (ER) | payer OTHER, MEDICAID, SELFPAY ==
[2019-06-30 11:20] VITALS: BP 138/72; PULSE 99; O2SAT 20; BMI 25.0
--- NOTE | 2019-06-30 11:23 | PC.NURSE ---
unble to sleep, stairing at the wall, not sleeping, thought about the past, extreme depression worst in the lifetime.
[2019-06-30 11:46] VITALS: BP 138/72; PULSE 99; O2SAT 20; BMI 25.0
[2019-06-30] MEDS: ACETAMINOPHEN 325 MG TABLET 650 MG PO (12:10)
[2019-06-30 12:12] LABS: UR Morphine/Opiate cutoff 300 Negative (Negative); Ur Specific Gravity 1.005 (Normal); Urine Amphetamines Negative (Negative); Urine Barbiturates Negative (Negative); Urine Benzodiazepines Negative (Negative); Urine Cocaine Negative (Negative); Urine MDMA Negative (Negative); Urine Methadone Negative (Negative); Urine Methamphetamines Negative (Negative); Urine Oxycodone Negative (Negative); Urine Phencyclidine Negative (Negative); Urine Tetrahydrocannabinol Negative (Negative); Urine Tricyclic Antidepressant Negative (Negative); Urine pH 7 (Normal)
[2019-06-30] MEDS: KETOROLAC 60 MG/2 ML VIAL 30 MG IM (12:12)
[2019-06-30 12:14] LABS: Ur Creatinine Abnormal (Normal)
--- NOTE | 2019-06-30 12:15 | PC.NURSE ---
medicated for comfort.
--- NOTE | 2019-06-30 12:29 | PC.NURSE ---
prefers to sit, with pillow due to back pain.
--- NOTE | 2019-06-30 12:38 | PC.NURSE ---
pt tore her gown, given another top , pt able to dressed self, continue to be mumbling, and wanting to leave, repeatedly asking for mat. boyfriend went to get her back brace.
[2019-06-30 13:06] VITALS: BP 138/72; PULSE 99; O2SAT 20; BMI 25.0
[2019-06-30 13:07] VITALS: BP 138/72; PULSE 99; TEMP 36.5; O2SAT 20; BMI 25.0
--- NOTE | 2019-06-30 13:23 | ED.PSYCH ---
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 Dr. Ashton with the diagnosis of depression, ETOH abuse, chronic back pain, and suidical ideation.
--- NOTE | 2019-06-30 13:47 | PC.NURSE ---
sleeping on the mattress at this time, waiting for pending DCR interviewed.
--- NOTE | 2019-06-30 13:54 | PC.NURSE ---
wrong lab value was enter per provider.
--- NOTE | 2019-06-30 14:00 | PC.NURSE ---
sleeping right position
[2019-06-30 14:02] LABS: Acetaminophen < 10 ug/mL (10-30); Alanine Aminotransferase 45 IU/L (<35); Albumin 4.9 g/dL (3.5-5.0); Albumin Globulin Ratio 1.3 (1.0-2.8); Alkaline Phosphatase 63 U/L (38-126); Aspartate Aminotransferase 109 IU/L (14-36); BUN Creatinine Ratio 18.6 (6-22); Bilirubin Total 0.4 mg/dL (0.2-1.3); Blood Urea Nitrogen 13 mg/dL (7-17); Calcium 10.1 mg/dL (8.4-10.2); Carbon Dioxide 27 mmol/L (22-32); Chloride 105 mmol/L (98-107); Estimated Glomerular Filt Rate > 60.0 mL/min (>60); Globulin 3.7 g/dL (1.7-4.1); Glucose 91 mg/dL (70-100); Lipase 109 U/L (23-300); Potassium 4.7 mmol/L (3.4-5.1); Salicylate < 1.0 mg/dL (<20); Sodium 145 mmol/L (137-145); Total Protein 8.6 g/dL (6.3-8.2)
[2019-06-30 14:03] LABS: Add Manual Diff / Slide Review NO; Basophils Absolute Auto 100 /uL (0-100); Basophils Percent Auto 0.9 % (0-2); Eosinophils Absolute Auto 100 /uL (0-450); Ethanol (ETOH) 275 mg/dL; Hematocrit 42.5 % (36-46); Hemoglobin 14.5 g/dL (12.0-16.0); Lymphocytes Absolute Auto 3100 /uL (1100-4500); Lymphocytes Percent Auto 48.3 % (25-40); Mean Corpuscular HGB Conc 34.1 % (30-36); Mean Corpuscular Hemoglobin 33.7 PG (26-34); Mean Corpuscular Volume 98.6 fL (80-100); Monocytes Absolute Auto 400 /uL (0-900); Monocytes Percent Auto 6.7 % (3-14); Neutrophils Absolute Auto 2700 /uL (1500-7000); Neutrophils Percent Auto 42.1 % (50-75); Platelet Count 256 X10^3/uL (150-400); Red Blood Cell Count 4.31 X10^6/uL (4.0-5.2); Red Cell Distribution Width 14.7 % (11.6-14.8)
[2019-06-30 14:04] LABS: White Blood Cell Count 6.4 X10^3/uL (4.5-11.0)
--- NOTE | 2019-06-30 14:19 | PC.NURSE ---
Pt w/ escalating verbalizations. Refused to stay in room. Verbally redirected w/o success. States she wants to leave and heading for door. No physical restraint except reassuring hand on shoulder. Door now shut.
--- NOTE | 2019-06-30 14:21 | PC.NURSE ---
DCR made aware of pts BAL. 275 at this time.
--- NOTE | 2019-06-30 14:22 | PC.NURSE ---
escalating and walking out of the room, now pt on seclusion with door closed and 1:1 observation.
[2019-06-30] MEDS: CYCLOBENZAPRINE 10 MG TABLET PO (14:33)
--- NOTE | 2019-06-30 14:41 | PC.NURSE ---
Pt laying down on mattress. Continues to have 1:1 observation. Offered fluids.
--- NOTE | 2019-06-30 15:01 | PC.NURSE ---
door now open. NO longer in seclusion.
--- NOTE | 2019-06-30 15:44 | PC.NURSE ---
Patient is awake, lying down and calm
--- NOTE | 2019-06-30 16:00 | PC.NURSE ---
patient been just tossing and turning
--- NOTE | 2019-06-30 16:05 | PC.NURSE ---
patient was agitated stating her privacy being violated, feeling like being locked up in nursing home, requesting her for meds and looking at the camera-RN notify
--- NOTE | 2019-06-30 16:42 | PC.NURSE ---
At 1605 Patient was agitated, stating her rights are being violated, feeling like she is being locked up in skilled nursing, she want to be somewhere else than sitting in here, she is not hurting anybody, been cooperative, and she have not eaten or have her medications-RN notify
[2019-06-30] MEDS: GABAPENTIN 600 MG TABLET PO (16:58)
[2019-06-30] MEDS: PANTOPRAZOLE 20 MG TABLET PO (16:58)
[2019-06-30] MEDS: carvediloL 6.25 MG TABLET PO (16:59)
[2019-06-30 17:00] VITALS: BP 129/81; PULSE 78; RESP 16; O2SAT 95
[2019-06-30 17:13] LABS: Ethanol (ETOH) 205 mg/dL
[2019-06-30 17:47] LABS: Thyroid Stimulating Hormone 2.51 uIU/mL (0.47-4.68)
--- NOTE | 2019-06-30 18:17 | PC.NURSE ---
patient is resting
--- NOTE | 2019-06-30 18:36 | PC.NURSE ---
patient is awake
--- NOTE | 2019-06-30 18:46 | PC.NURSE ---
Agitated stating this is the strangest hospital experience she had ever been in
[2019-06-30] MEDS: ONDANSETRON 4 MG ODT SL (19:04)
--- NOTE | 2019-06-30 20:03 | PC.NURSE ---
patient is lying down, calm and resting
[2019-06-30] MEDS: ACETAMINOPHEN 325 MG TABLET 975 MG PO (20:10)
[2019-06-30] MEDS: methocarbamoL 500 MG TABLET PO (20:29)
[2019-06-30] MEDS: MELOXICAM 7.5 MG TABLET PO (20:29)
[2019-06-30 21:49] LABS: Ethanol (ETOH) 103 mg/dL
--- NOTE | 2019-06-30 22:01 | PC.NURSE ---
Patient is resting
[2019-06-30 23:18] VITALS: BP 145/89; PULSE 91; RESP 16; O2SAT 92
[2019-07-01 00:50] LABS: Ethanol (ETOH) 38 mg/dL
[2019-07-01] MEDS: LORazepam 0.5 MG TABLET 1 MG PO ×3 (02:44→18:43)
[2019-07-01 02:56] VITALS: BP 136/93; PULSE 100; RESP 18; O2SAT 92
[2019-07-01 08:05] VITALS: BP 154/98; PULSE 93; RESP 16; TEMP 36.4; O2SAT 97
[2019-07-01] MEDS: GABAPENTIN 600 MG TABLET PO ×2 (10:11→16:54)
[2019-07-01] MEDS: PANTOPRAZOLE 20 MG TABLET PO (10:11)
[2019-07-01] MEDS: ACETAMINOPHEN 325 MG TABLET 975 MG PO (10:45)
[2019-07-01] MEDS: carvediloL 6.25 MG TABLET PO (10:46)
--- NOTE | 2019-07-01 11:54 | PC.NURSE ---
pt vomited approximately 400ml of fluid. States the nausea comes and goes.
[2019-07-01 13:15] VITALS: BP 126/93; PULSE 82; RESP 16; TEMP 37.9; O2SAT 97
--- NOTE | 2019-07-01 15:51 | CM.SWNOTE ---
W[employer] M[employer]ER [employer] Note: Received W[facility] [employer] M[employer]ER [employer] consult this AM from ED staff and Samia Mathur (GRACY) with [facility]. (see intervention note) Patient brought to [facility] with significant other after apparently wanting to shoot herself Patient had loaded hand gun .22 which she fired to the ground. In addition, suicide note was written this W[employer] M[employer]ER HEAD did not see it. Met with Herber/GRACY Gracia and patient explained [facility] W[facility] [employer] M[employer]ER [employer] role. Initially, it was thought that patient would be involuntarily placed however, this AM after meeting with Samia and getting some rest patient reports that she is voluntary. Patient agreeable to short term placement but is aware if her mind changes she will once again be involuntary given the nature of the this attempt. Patient admits to depression and anxiety. Patient medicated to assist with both. Patient also active alcohol drinker but RN reports low CIWA scores. Placed call to both [facility] this AM and faxed clinical. As of 4:00pm have not gotten a response. Called [facility] and they report that they are working reviewing it. In addition, this afternoon placed call to [facility] Spoke with [facility] and they do have female voluntary bed. They are also agreeable to review. Therefore, all clinical faxed. ED staff updated that both [facility] and [facility] are reviewing for voluntary admit. If for any reason patient changes her mind DCR will need to be dispatched for involuntary placement [phone]. P: Awaiting voluntary placement at [facility] facility. DAVID Malloy
--- NOTE | 2019-07-01 16:50 | PC.NURSE ---
Addendum entered by Maria Ines Machuca R.N. 07/01/19 19:00: pt ate dinner and called her boyfriend to ask where the car was parked. pt belonging bag quickly searched for weapons and provided to pt. Patient changed into her personal clothes. Mother and brother came and took car keys and provided patient with another belongings bag. A bag of items were taken out of pt's purse to include medications and vape pen. Patient sticker placed on that bag and provided to her mother to take home. pt left ED on stretcher with EMT crew. No belongings remained in ED. Addendum entered by Maria Ines Machuca R.N. 07/01/19 18:05: pt educated on plan to transfer to [facility]. pt tearful and concerned about car, clothing, vape pen, and the distance to the facility (and her mother than can't drive there). pt is willing to go, but vocalizing apprehensions to the above mentioned. Currently talking on the phone with her mother and starting to get a little more tearful and aggravated. I communicated that we have clothing packs we can provide her but the patient is still peserverating on clothing and her car. Addendum entered by Maria Ines Machuca R.N. 07/01/19 17:17: pt reporting 6/10 RLE pain. States that Tylenol doesn't help and she typically take Ibuprofen, but that is irritating her GERD currently. pt requesting something stronger like tramadol or oxy. I locked bathroom door and answered some questions the patient had on her transfer status. Original Note: 1649- Received report from IVELISSE Childress on patient. pt is AO and receptive to healthcare team. Up IND to bathroom and asking questions regarding plan. Tremors assess to upper extremities and pt asking for ativan. IVELISSE Childress is working on obtaining an order and I will be administering gabepentin.
[2019-07-01] MEDS: KETOROLAC 60 MG/2 ML VIAL 30 MG IM (18:43)
[2019-07-01 18:53] VITALS: BP 150/96; PULSE 88; RESP 16; O2SAT 97
[2019-07-01 18:59] VITALS: TEMP 36.7
== END 2019-07-01 19:08 ==
PROVIDERS: Nurse Practitioner Family; Emergency Provider Emergency Medicine; PCP Family Medicine
DX: R45.851 Suicidal ideations (principal); F32.9 Major depressive disorder, single episode, unspecified; F10.10 Alcohol abuse, uncomplicated; R45.1 Restlessness and agitation; F41.9 Anxiety disorder, unspecified
CPT/HCPCS: 36415; 80053; 80305; 80320; 80329; 81003; 83690; 84443; 85025; 96372; 99285; G0480; J1885

== ENCOUNTER 2023-11-03 19:17 | Emergency (ER) | payer OTHER, MEDICAID, SELFPAY ==
[2023-11-03 19:22] VITALS: BP 151/81; PULSE 100; RESP 16; TEMP 36.8; O2SAT 97; BMI 27.4
--- NOTE | 2023-11-03 19:27 | DI.RAD.S_ITS ---
PROCEDURE: XR RIBS LT MIN 3V W CXR1V INDICATIONS: fall/left rib pain TECHNIQUE: 2 views of the ribs were acquired, along with a single view chest. COMPARISON: None. FINDINGS: Surgical changes and devices: None. Bones and chest wall: Small rudimentary ribs at T12. Subtle minimally displaced fractures along the lateral left 4th through 9th ribs. No suspicious bony lesions. Overlying soft tissues appear unremarkable. Lungs and pleura: No pleural effusions or pneumothorax. Lungs appear clear. Mediastinum: Mediastinal contours appear normal. Heart size is normal. IMPRESSION: Minimally displaced left lateral 4th through 9th rib fractures. No pleural effusion or pneumothorax. Approved by: Jason Alvarado M.D. on 11/03/2023 at 20:04
--- NOTE | 2023-11-03 20:02 | ED.FALL ---
HPI - Fall General Chief Complaint: Fall Stated Complaint: left side palpitating pain Time Seen by Provider: 11/03/23 19:31 Source: patient Mode of arrival: Ambulatory History of Present Illness HPI Narrative: 58-year-old female presents for left-sided chest wall pain for the last 5 days. Patient states that while in her kitchen she slipped and fell, striking her left chest wall against the corner of her cabinets. She has had significant pain with any movement since that time. She has been taking ibuprofen and using OTC balms for pain, but her symptoms have persisted and so she was here today for evaluation. Denies cough or shortness of breath. Related Data Home Medications Medication Instructions Recorded Confirmed carvedilol 6.25 mg tablet (Coreg) 6.25 mg PO BID ##0 12/26/16 07/01/19 hydroxyzine HCl 25 mg tablet 25 mg PO Q6H PRN Anxiety ##0 12/26/16 07/01/19 methocarbamol 500 mg tablet 500 mg PO BID PRN Muscle Spasm 03/12/19 07/01/19 omeprazole 20 mg capsule,delayed 20 mg PO DAILY 03/12/19 07/01/19 release acetaminophen 325 mg tablet 1 tab PO PRN PRN pain 03/25/19 07/01/19 ibuprofen 200 mg tablet 400 mg PO QID PRN pain 07/01/19 07/01/19 ondansetron 8 mg disintegrating 8 mg translingual Q8H PRN Nausea 07/01/19 07/01/19 tablet And Vomiting ranitidine HCl 150 mg tablet 150 mg PO BID PRN Acid Reflux 07/01/19 07/01/19 Previous Rx's Medication Instructions Recorded gabapentin 600 mg tablet 600 mg PO TID #90 tabs 12/16/18 simethicone 80 mg chewable tablet 80 mg PO QID PRN Acid Reflux #120 12/16/18 tabs lorazepam 0.5 mg tablet 0.5 mg PO TID PRN alcohol 03/15/19 withdrawal #10 tabs potassium 1 each mucous membrane PRN PRN 03/15/19 lmwrets-atruyqdpwsau-tkgw-gayle sore throat #315 mL polysaccharides mouthwash (OraMagicRx mouthwash) metoclopramide HCl 10 mg tablet 10 mg PO Q6H PRN nausea and 03/25/19 (Reglan) vomiting #20 tabs Allergies Allergy/AdvReac Type Severity Reaction Status Date / Time No Known Drug Allergies Allergy Verified 06/30/19 11:37 Patient History Medical History 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 Low back pain Paroxysmal atrial fibrillation Surgical History History of esophagogastroduodenoscopy (EGD) History of colonoscopy History of local excision of skin lesion History of cholecystectomy Family History Father COPD (chronic obstructive pulmonary disease) Social History household members: family Smoking Status: Current every day smoker alcohol intake: current substance use type: does not use Smoking Status: Current every day smoker tobacco type: vaping alcohol intake frequency: other Alcohol type: hard liquor Substance Use Type: marijuana Exam Initial Vital Signs Initial Vital Signs: Vital Signs Temperature 98.2 F 11/03/23 19:22 Pulse Rate 100 H 11/03/23 19:22 Respiratory Rate 16 11/03/23 19:22 Blood Pressure 151/81 H 11/03/23 19:22 Pulse Oximetry 97 11/03/23 19:22 Oxygen Delivery Method Room Air 11/03/23 19:22 Const: Awake, alert, no acute distress, nontoxic appearing Cardiac: regular rate, regular rhythm RESP: unlabored, clear bilaterally, no wheezing Chest: Generalized chest wall tenderness to palpation on the left-hand side without crepitus Skin: Warm, Dry, intact, no rashes Neuro: AO x3, CN II-XII grossly intact, moves all extremities Course Orders Ordered: Discontinued Medications Acetaminophen (Acetaminophen 325 Mg Tablet) 975 mg PO NOW ONE Stop: 11/03/23 20:31 Last Admin: 11/03/23 20:38 Dose: 975 mg Documented By: SRIDHAR Ketorolac Tromethamine (Ketorolac 30 Mg/Ml Vial) 15 mg IV NOW ONE Stop: 11/03/23 20:31 Last Admin: 11/03/23 20:38 Dose: 15 mg Documented By: SRIDHAR Morphine Sulfate (Morphine 4 Mg/Ml Inj) 4 mg IV NOW ONE Stop: 11/03/23 20:31 Last Admin: 11/03/23 20:38 Dose: 4 mg Documented By: SRIDHAR Vital Signs Vital signs: Vital Signs - 8 hr 11/03/23 19:22 Temperature 98.2 F Pulse Rate 100 H Respiratory Rate 16 Blood Pressure 151/81 H Pulse Oximetry 97 Oxygen Delivery Method Room Air MDM - Fall Differential Diagnosis Differential diagnosis: Likely syncope, dislocation of shoulder region and fracture of wrist Imaging Data Chest x-ray: Radiologist's Impression: PROCEDURE: XR RIBS LT MIN 3V W CXR1V INDICATIONS: fall/left rib pain TECHNIQUE: 2 views of the ribs were acquired, along with a single view chest. COMPARISON: None. FINDINGS: Surgical changes and devices: None. Bones and chest wall: Small rudimentary ribs at T12. Subtle minimally displaced fractures along the lateral left 4th through 9th ribs. No suspicious bony lesions. Overlying soft tissues appear unremarkable. Lungs and pleura: No pleural effusions or pneumothorax. Lungs appear clear. Mediastinum: Mediastinal contours appear normal. Heart size is normal. IMPRESSION: Minimally displaced left lateral 4th through 9th rib fractures. No pleural effusion or pneumothorax. Approved by: Jason Alvarado M.D. on 11/03/2023 at 20:04 [facility] Narrative Medical decision making narrative: Left-sided chest wall pain after falling into her counter. X-ray imaging shows multiple left-sided rib fractures. No evidence of pneumothorax or other underlying injury. Patient's pain controlled with oral medications. She was given an incentive spirometer and script for pain medication provided to patient. Multi modal pain medication regimen discussed at home. Discharge Plan Departure Patient Disposition: Home Clinical Impression: Chest pain Ribs, multiple fractures Qualifiers: Encounter type: initial encounter Fracture type: closed Laterality: left Qualified Code(s): S22.42XA - Multiple fractures of ribs, left side, initial encounter for closed fracture Activity Restrictions/Additional Instructions: Discharge instructions on paper chart Prescriptions: No Action carvedilol [Coreg] 6.25 MG tablet 6.25 mg PO BID Qty: 0 Patient Comments: patient states usually just takes daily...not used to bid increased dose. 03/12 hydroxyzine HCl 25 MG tablet 25 mg PO Q6H PRN (Reason: Anxiety) Qty: 0 omeprazole 20 mg capsule,delayed release(DR/EC) 20 mg PO DAILY Patient Comments: PATIENT STATES INSURANCE WILL NOT COVER. HAS NOT REFILLED. 03/25/19 methocarbamol 500 mg tablet 500 mg PO BID PRN (Reason: Muscle Spasm) Patient Comments: patient states usually just at night. lorazepam 0.5 mg tablet 0.5 mg PO TID PRN (Reason: alcohol withdrawal) Qty: 10 0RF OraMagicRx Mouthwash 1 each MM PRN PRN (Reason: sore throat) Qty: 315 0RF Patient Comments: PATIENT STATES UNABLE TO GET FILLED..PHARMACY DOES NOT HAVE INGREDIENTS. 03/25/19. only had one time dose here in February simethicone 80 mg Tablet,Chewable 80 mg PO QID PRN (Reason: Acid Reflux) Qty: 120 0RF gabapentin 600 mg tablet 600 mg PO TID Qty: 90 0RF Patient Comments: PATIENT STATES TRYING TO LIMIT TO ONE DAILY 03/25/19 Rx Instructions: take 1 tablet by mouth three times a day acetaminophen 325 mg Tablet 1 tab PO PRN PRN (Reason: pain) Patient Comments: patient states does not work for her muscular pain. 07/01/2019 metoclopramide HCl [Reglan] 10 mg tablet 10 mg PO Q6H PRN (Reason: nausea and vomiting) Qty: 20 0RF ondansetron 8 mg tablet,disintegrating 8 mg translingual Q8H PRN (Reason: Nausea And Vomiting) Patient Comments: DISSOLVE 1 TABLET ON TOP OF TONGUE EVERY 8 HOURS NEEDED FOR NAUSEAOR VOMITING ibuprofen 200 mg Tablet 400 mg PO QID PRN (Reason: pain) ranitidine HCl 150 mg tablet 150 mg PO BID PRN (Reason: Acid Reflux) Referrals: Cindy Meza MD [Primary Care Provider] - Stand Alone Forms: Patient Portal/API
[2023-11-03] MEDS: MORPHINE 4 MG/ML INJ IV (20:38)
[2023-11-03] MEDS: KETOROLAC 30 MG/ML VIAL 15 MG IV (20:38)
[2023-11-03] MEDS: ACETAMINOPHEN 325 MG TABLET 975 MG PO (20:38)
--- NOTE | 2023-11-04 12:57 | PC.NURSE ---
Facility EMR downtime began 11/03/231999 and continued throughout the remainder of patient's stay.
== END 2023-11-03 23:00 | disposition home or self-care (01) ==
PROVIDERS: Emergency Provider Emergency Medicine; PCP Family Medicine
DX: S22.42XA Multiple fractures of ribs, left side, initial encounter for closed fracture (principal); W01.198A Fall on same level from slipping, tripping and stumbling with subsequent striking against other object, initial encounter
CPT/HCPCS: 71101; 96374; 96375; 99283; 99284; J1885; J2270